=== PATIENT | female | born 1965 | race Caucasian/White ===

== ENCOUNTER → 2016-04-16 | Outpatient (CLI) | payer MEDICAID ==
[~2016-04-16] MED LIST: AMIODARONE 200200 MG PO; AMLO5TAB PO; ASPIRIN 81MG TA81 MG PO; BACLOFEN 10MG T10 MG PO; ETODOLAC400 MG PO; FERROUS SULFAT324 MG PO; FLEXERIL10 MG PO; GABAPENTIN100 M1 PO; HCTZ/LISINOPRIL1 TA3 PO; HYDROCHLOROTHIA1 TA2 PO; LISINOPRIL 20MG20 MG PO; LISINOPRIL/HCTZ PO; NAPROSYN 500MG500 MG OR; NICOTINE PATCH;21 MG TD; NITROLINGUAL SL; PERCOCET 325 MG1 TA3 PO; PRAVASTATIN 40M40 MG PO; PREDNISONE 10MG10 MG PO; TENORMIN50 MG PO; ZOFRAN ODT8 M1 PO
[2016-04-16 12:03] LABS: LYMPH # 1.8 K/mm3 (0.7-4.5); LYMPH % 23.6 % (10-50.0)
[2016-04-16 12:04] LABS: HEMOGLOBIN 11.8 g/dL (12.2-16.2)
[2016-04-16 15:31] LABS: BUN 33 mg/dL (7-18)
[2016-04-16 15:46] LABS: GFR (ESTIMATED) 34 ML/MIN (59-)
== END ==
LOC: LAB 11:45
PROVIDERS: Nurse Practitioner Family
DX: I10 Essential (primary) hypertension (principal); E55.9 Vitamin D deficiency, unspecified

== ENCOUNTER → 2016-06-01 | Outpatient (CLI) | payer MEDICAID ==
--- NOTE | 2016-06-04 08:59 | RADIOLOGY REPORT PS360 ---
DIG MAMM-SCREEN RIGOBERTO W/CAD CAD Screening COMPARISON: Digital mammograms 05/16/2015 and 02/19/2013 INDICATION: There is a history of breast cancer patient's sister diagnosed before menopause. TECHNIQUE: Standard CC and MLO images were obtained. R2 CAD reviewed. FINDINGS: The breasts are closed almost entirely of fat with scattered fibroglandular densities throughout each breast. A few scattered benign-appearing calcifications are seen in each breast. There is no suspicious lesion and no suspicious microcalcifications. IMPRESSION: Fatty type breast parenchyma with no suspicious lesion seen recommend yearly follow-up BI-RADS CATEGORY: 2_Benign RECOMMENDED FOLLOWUP: 12M 12 MONTH FOLLOW-UP (A letter has been sent to the patient regarding results of the study.)
== END ==
LOC: RAD 08:30
DX: Z12.31 Encounter for screening mammogram for malignant neoplasm of breast (principal)
CPT/HCPCS: G0202

== ENCOUNTER → 2016-07-06 | Outpatient (CLI) | payer MEDICAID ==
[2016-07-06 12:42] LABS: HEMOGLOBIN 11.8 g/dL (12.2-16.2); LYMPH # 1.5 K/mm3 (0.7-4.5); LYMPH % 25.2 % (10-50.0)
[2016-07-06 15:15] LABS: BUN 35 mg/dL (7-18)
[2016-07-06 15:20] LABS: GFR (ESTIMATED) 40 ML/MIN (59-)
[2016-07-07 10:39] LABS: Vitamin B12 >2000 pg/mL (211-946)
[2016-07-10 03:41] LABS: 1,25-Dihydroxy, Vitamin D-2 <10 pg/mL (.); 1,25-Dihydroxy, Vitamin D-3 25 pg/mL (.); Total 1,25-Dihydroxy,Vitamin D 25 pg/mL (.)
== END ==
LOC: LAB 11:59
PROVIDERS: Nurse Practitioner Family
DX: R00.0 Tachycardia, unspecified (principal); I10 Essential (primary) hypertension; E53.8 Deficiency of other specified B group vitamins; E55.9 Vitamin D deficiency, unspecified

== ENCOUNTER 2016-08-02 12:52 | Emergency (ER) | payer MEDICAID ==
[~2016-08-02] VITALS: Ht 162.6 cm; Wt 120.2 kg
--- OUTSIDE RECORDS SUMMARY | 2016-08-02 13:05 | External Medical Summary Rpt ---
Author Author , Organization [employer] Address Unknown Phone Unavailable Care Team Providers Care Bridge Worker Name Role Phone MREVAT ROWAN Unavailable Unavailable NNAMDI MERVAT COTO, MERVAT Unavailable Unavailable NNAMDI BEINEKE, BEINEKE Unavailable Unavailable BEINEKE STEPHANIE, BEINEKE Unavailable Unavailable STEPHANIE MATUTE ALL, MATUTE ALL Unavailable Unavailable [facility] Unavailable Unavailable SERVICE, Lit Building Directory AMBULANCE SERVICE [facility] Unavailable Unavailable SERVICE, Lit Building Directory AMBULANCE SERVICE [facility] Unavailable Unavailable [facility] [place]available [place], [facility] Unavailable Unavailable [facility], [facility], Unavailable Unavailable [facility], Unavailable Unavailable [facility] CHERYL JUAN, CHERYL Unavailable Unavailable JUAN YOUNGBLOOD, YOUNGBLOOD Unavailable Unavailable FRYMAN, FRYMAN Unavailable Unavailable FRYMAN EUG, FRYMAN Unavailable Unavailable EUG DORETHA JUAN, DORETHA Unavailable Unavailable JUAN [facility] Unavailable Unavailable INC, [facility] Unavailable Unavailable H[facility]PITAL, [facility] Unavailable Unavailable [facility]PITAL P, [facility], [facility]available Unavailable [facility], Unavailable Unavailable [facility] OBANDO TRA, OBANDO TRA Unavailable Unavailable [facility], [facility] SOLANO DONTA, SOLANO DONTA Unavailable Unavailable SUNNY JR DWI, SUNNY Unavailable Unavailable JR DWI [facility] Un[facility]available [facility], [facility] PETTEY, PETTEY Unavailable Unavailable RENUSCH CARRIE, RENUSCH Unavailable Unavailable CARRIE SCIFRES ANG, SCIFRES Unavailable Unavailable ANG IRWIN MAT, Unavailable Unavailable IRWIN MAT SOTINGEANShahnaz STEPHANIE, Unavailable Unavailable SOTINGEANamU STEPHANIE Issa MD, Unavailable Unavailable Kee Issa MD [facility] # Unavailable Unavailable [id number], [facility] # [id number] WALKER FOR, WALKER Unavailable Unavailable FOR Purpose Continuity of Care Document - 10-29-2010 through 2016 Problems Code Diagnosis DOS Provider Status K529 NONINFECTIV 06-13-2016 [facility] ITIS & COLITIS UNS E538 DEFICIENCY 06-02-2016 [facility] SPECIFIED B GROUP GROUP VITAMINS M7541 IMPINGEMENT 06-01-2016 [facility] SYNDROME PHYS[facility]IANS OF RIGHT GROUP SHOULDER M7542 IMPINGEMENT 06-01-2016 [facility] SYNDROME PHYS[facility]ANS OF LEFT GROUP SHOULDER Z1231 ENCOUNTER 06-01-2016 [facility]CREEN[facility] MAMMO MALIG [facility]AG[facility] NEOPLASM BREAST I10 ESSENTIAL 05-19-2016 [facility] PRIMARY [facility] HYPERTENSIO GROUP N M130 POLYARTHRIT 05-19-2016 [facility] IS PHYSICIANS UNSPECIFIED GROUP M542 CERVICALGIA 05-19-2016 [facility] R000 TACHYCARDIA 05-19-2016 [facility] UNSPECIFIED GROUP B349 VIRAL 05-07-2016 [facility] INFECTION [facility] UNSPEC[facility]IED INC [id number] PAIN IN 05-06-2016 [facility] G8929 OTHER 05-05-2016 [facility] CHRONIC [facility] PAIN GROUP R7989 OTHER SPEC 05-05-2016 [facility] ABNORMAL [facility] FINDINGS GROUP BLOOD CHEMISTRY E559 VITAMIN D 04-16-2016 [facility] DEFICIENCY [facility] UNSPECIFIED INC [id number] PAIN IN 04-16-2016 [facility] LEFT [facility]YSICI[facility] SHOULDER GROUP J0100 ACUTE 03-22-2016 [facility] MAXILLARY PHYS[facility] SINUSITIS GROUP UNSPECIFIED D85514 MUSCLE 11-28-2015 [facility] SPASM OF PHYSICIAN BACK GROUP L0390 CELLULITIS 10-20-2015 [facility] UNSPECIFIED PHYSICIAN GROUP [id number] PAIN IN 09-18-2015 [facility] [id number] CONTUSION 09-18-2015 [facility] LEFT PHYSICIANS, HAND PLLC INITIAL ENCOUNTER K7719RY UNSPECIFIED 09-18-2015 [facility] INJURY LT MEDICAL WRIST HAND IMAGING ASS FINGERS INITIAL D649 ANEMIA 08-25-2015 [facility] UNSPECIFIED PHYSICIANS GROUP I2510 ASHD [place] TRIBE 08-25-2015 [facility] CORONARY PHYS[facility]ANS ARTERY W/O GROUP ANGINA [place]ECT[place]IS R001 BRADYCARDIA 08-25-2015 [facility] UNSPECIFIED GROUP E785 HYPERLIPIDE 08-13-2015 [facility] B06133 ATHEROSCLER 08-13-2015 [facility] BP GRAFT [facility] TPLNT HRT W/O AP R002 PALPITATION 08-05-2015 [facility] S [facility] INC D509 IRON 07-30-2015 [facility] DEFICIENCY PHYSICIANS ANEMIA GROUP UNSPECIFIED I4891 UNSPECIFIED 07-30-2015 [facility] ATRIAL PHYSICIANS FIBRILLATIO GROUP N J55203 ASHD [place] TRIBE 07-29-2015 [facility] COR ART PHYSICIANS W/UNSTABLE GROUP ANGINA [place]ECT[place]IS I499 CARDIAC 07-29-2015 [facility] UNSPECIFIED SERVICE I517 CARDIOMEGAL 07-29-2015 [facility] R0602 SHORTNESS 07-29-2015 [facility] OF BREATH PHYSICIANS GROUP [id number] PERSONAL 07-29-2015 [facility] P DEPENDENCE Z951 PRESENCE OF 07-29-2015 [facility] [place] [facility] J0190 ACUTE 06-02-2015 [facility] SINUSITIS [facility] J029 ACUTE 06-02-2015 [facility] PHARYNGITIS [facility] UNSPECIFIED R42 DIZZINESS 05-01-2015 [facility] Z23 ENCOUNTER 05-01-2015 [facility] J069 ACUTE UPPER 04-28-2015 [facility] RESPIRATORY PLL[facility] INFECTION UNSPECIFIED R309 PAINFUL 03-12-2015 [facility] UNS[facility] I340 NONRHEUMATI 03-10-2015 [facility] INSUFFICIEN CY I361 NONRHEUMATI 03-10-2015 [facility] TRICUSPID [facility] INSUFFICIEN CY I371 NONRHEUMATI 03-10-2015 [facility]ULMONARY [facility] INSUFFICIEN CY E04884 PRIMARY 03-10-2015 [facility] OSTEOARTHRI MEDICAL TIS LEFT IMAGING ASS SHOULDER S86049 SPONDYLOSIS 03-10-2015 [facility] W/O MEDICAL MYELOPATH/R IMAGING ASS ADICULOPATH Y CERV RGN M5032 OTH CERV 03-10-2015 [facility] DISC MEDICAL DEGENERATIO IMAGING ASS N MID-CERVICA L REGION 56627 VARIANTS 12-02-2014 M[facility]AT COTO MIGRAINE NEC INTRACT MIGRAINE W/[place] [address] OSTEOARTHRO 12-02-2014 M[facility]AT COTO S INVLV MX SITES BUT NOT SPEC GEN 7242 LUMBAGO 10-17-2014 M[facility] COTO 2859 UNSPECIFIED 09-06-2014 [facility]EMIA [facility] INC 2449 UNSPECIFIED 09-04-2014 [facility] [place] 89183 DIAB W/O 09-04-2014 [facility] COMP TYPE PHYSICIANS II/UNS NOT LA STATED UNCNTRL 2689 UNSPECIFIED 09-04-2014 [facility] VITAMIN D PHYSICIANS DEFICIENCY [place] 2724 OTHER AND 09-04-2014 [facility] UNSPECIFIED PHYSICIANS [place] HYPERLIPIDE JOSEPH 99523 OBESITY, 09-03-2014 M[facility]AT NNAMDI UNSPECIFIED 7224 DEGENERATIO 08-09-2014 [facility] [place] [facility] CERV[facility] S [facility] INTERVERTEB RAL DISC 69933 OSTEOARTHRO 07-30-2014 [facility] S UNSPEC MEDICAL WHETHER IMAGING ASS GEN/LOC SHLDR REGION 84506 OSTEOARTHRO 07-30-2014 [facility] SIS UNSPEC MEDICAL WHETHER IMAGING ASS GEN/LOC LOWER LEG 67639 PAIN IN 07-30-2014 [facility] JOINT, MEDICAL SHOULDER IMAGING ASS REGION 94710 PAIN IN 07-30-2014 [facility] JOINT, MEDICAL LOWER LEG IMAGING ASS 7231 CERVICALGIA 07-30-2014 [facility] 98693 SPASM OF 06-14-2014 MERVAT COTO MUSCLE 4659 ACUTE URIS 05-17-2014 M[facility] COTO OF UNSPECIFIED SITE 5589 OTH&UNSPEC 05-17-2014 M[facility]AT COTO NONINFECTIO US GASTROENTER ITIS&COLITI S 75227 PAIN IN 02-05-2014 [facility] JOINT MEDICAL PELVIC IMAGING ASS REGION AND THIGH 00512 INSOMNIA 02-04-2014 MERVAT COTO UNSPECIFIED 40281 PAIN IN 11-02-2013 DEBRAJUNI NNAMDI JOINT, ANKLE AND FOOT 4011 ESSENTIAL 07-23-2013 MERVAT COTO HYPERTENSIO N, BENIGN 3674 PRESBYOPIA 11-20-2010 [facility] [id number] Coronary [facility] bypass [facility] grafts x 2 272.4 Hyperlipide [facility] 280.9 Microcytic [facility] I48.91 UNSPECIFIED ATRIAL FIBRILLATIO N S60.222A CONTUSION OF LEFT HAND, INITIAL ENCOUNTER Allergies, Adverse Reactions, Alerts Type Allergy to substance Adverse Reaction to Substance Substance Reaction Severity NO KNOWN ALLERGIES Unknown Unknown Clinical Alert Notifications Alert Diabetes: no A1C in the last 6 months Diabetes: no eye exam in the last 365 days Diabetes: no influenza vaccine in the last 365 days Diabetes: no urine protein screening in the last 365 days Medications Na ND Rx Da Fi Fi Am Da Di Ph RX Ph St me C No te ll ll ou ys ag ar # ys at rm s nt no ma ic us Or Da si cy ia de te s n re d GA 53 04 04 90 30 00 WA Ac BA 74 -0 -2 .0 00 L- ti PE 60 5- 8- 00 07 MA ve NT 10 20 20 48 RT IN 10 17 17 06 5 11 PH 10 AR 0 MA MG CY CA #5 PS 91 UL E TN 54 04 04 30 30 00 WA Ac AV 45 -0 -2 .0 00 L- ti 80 4- 8- 00 07 MA ve TA 92 20 20 47 RT TI 51 17 17 37 N 0 44 PH SO AR DI MA UM CY 40 #5 91 MG TA B AM 68 04 04 30 30 00 WA Ac IO 38 -0 -2 .0 00 L- ti DA 20 4- 8- 00 07 MA ve RO 22 20 20 47 RT NE 71 17 17 37 4 45 PH HC AR L MA 20 CY 0 MG #5 91 TA BL ET ## 10 04 10 5 00 WA Ac ## -1 -2 .0 00 L- ti ## 6- 8- 00 08 MA ve ## 20 20 83 RT ## 16 17 66 # 01 PH AR MA CY #5 91 ON 57 03 04 15 25 00 WA Ac DA 23 -2 -2 .0 00 L- ti NS 70 6- 1- 00 07 MA ve ET 07 20 20 47 RT RO 81 17 17 85 N 0 72 PH OD AR T MA 8 CY MG #5 TA 91 BL ET GA 53 03 03 90 30 00 WA Ac BA 74 -0 -2 .0 00 L- ti PE 60 1- 4- 00 07 MA ve NT 10 20 20 47 RT IN 10 17 17 37 5 36 PH 10 AR 0 MA MG CY CA #5 PS 91 UL E TN 54 03 03 30 30 00 WA Ac AV 45 -0 -2 .0 00 L- ti 80 1- 4- 00 07 MA ve TA 92 20 20 47 RT TI 51 17 17 37 N 0 44 PH SO AR DI MA UM CY 40 #5 91 MG TA B 00 03 03 90 90 00 WA Ac PI 53 -0 -2 .0 00 L- ti RI 61 1- 4- 00 08 MA ve N 00 20 20 83 RT EC 41 17 17 82 0 97 PH 81 AR MA MG CY TA #5 BL 91 ET AM 68 03 03 30 30 00 WA Ac IO 38 -0 -2 .0 00 L- ti DA 20 1- 4- 00 07 MA ve RO 22 20 20 47 RT NE 71 17 17 37 4 45 PH HC AR L MA 20 CY 0 MG #5 91 TA BL ET AT 00 03 03 90 90 00 WA Ac EN 78 -0 -2 .0 00 L- ti OL 11 1- 4- 00 07 MA ve OL 50 20 20 47 RT 61 17 17 37 50 0 46 PH AR MG MA CY TA BL #5 ET 91 AM 00 03 03 90 90 00 WA Ac LO 37 -0 -2 .0 00 L- ti DI 85 1- 4- 00 07 MA ve PI 20 20 20 47 RT NE 90 17 17 37 5 47 PH BE AR SY MA LA CY TE 5 #5 91 MG TA B TN 00 02 03 10 5 00 WA Ac ED 14 -1 -1 .0 00 L- ti NI 39 5- 0- 00 07 MA ve SO 73 20 20 47 RT NE 80 17 17 09 5 95 PH 20 AR MA MG CY TA #5 BL 91 ET LI 54 02 03 18 90 00 WA Ac SI 45 -0 -0 0. 00 L- ti NO 80 2- 3- 00 07 MA ve TN 99 20 20 0 46 RT IL 11 17 17 73 -H [address] AR Z MA 20 CY -2 5 #5 MG 91 TA B NI 45 02 03 4. 30 00 WA Ac TR 80 -0 -0 90 00 L- ti OG 20 2- 3- 0 07 MA ve LY 21 20 20 44 RT CE 00 17 17 15 RI 1 31 PH N AR LI MA NG CY UA L #5 0. 91 4 MG AM 00 01 02 30 30 00 WA Ac LO 37 -2 -2 .0 00 L- ti DI 85 7- 4- 00 07 MA ve PI 20 20 20 46 RT NE 90 17 17 73 5 18 PH BE AR SY MA LA CY TE 5 #5 91 MG TA B 00 01 02 30 30 00 WA Ac PI 53 -2 -2 .0 00 L- ti RI 61 7- 4- 00 08 MA ve N 00 20 20 83 RT EC 41 17 17 78 0 63 PH 81 AR MA MG CY TA #5 BL 91 ET GA 65 01 02 60 30 00 WA Ac BA 16 -2 -2 .0 00 L- ti PE 20 7- 4- 00 07 MA ve NT 10 20 20 46 RT IN 15 17 17 73 0 19 PH 10 AR 0 MA MG CY CA #5 PS 91 UL E AT 00 01 02 30 30 00 WA Ac EN 78 -2 -2 .0 00 L- ti OL 11 7- 4- 00 07 MA ve OL 50 20 20 46 RT 61 17 17 73 50 0 21 PH AR MG MA CY TA BL #5 ET 91 AM 68 01 30 30 00 WA Ac IO 38 -2 -2 .0 00 L- ti DA 20 7- 4- 00 07 MA ve RO 22 20 20 46 RT NE 71 17 17 73 4 22 PH HC AR L MA 20 CY 0 MG #5 91 TA BL ET TN 54 01 30 30 00 WA Ac AV 45 -2 -2 .0 00 L- ti 80 7- 4- 00 07 MA ve TA 92 20 20 46 RT TI 51 17 17 73 N 0 23 PH SO AR DI MA UM CY 40 #5 91 MG TA B LI 54 01 30 00 WA Ac SI 45 -1 -0 .0 00 L- ti NO 80 0- 3- 00 07 MA ve TN 99 20 20 40 RT IL 11 17 17 37 -H [address] AR Z MA 20 CY -2 5 #5 MG 91 TA B TN 54 12 04 19 30 00 WA Ac AV 45 -3 -2 .0 00 L- ti 80 1- 7- 00 07 MA ve TA 92 20 20 45 RT TI 51 16 17 57 N 0 36 PH SO AR DI MA UM CY 40 #5 91 MG TA B AM 00 03 21 29 30 00 WA Ac LO 37 -0 -2 .0 00 L- ti DI 85 2- 7- 00 07 MA ve PI 20 20 20 46 RT NE 90 17 17 21 5 07 PH BE AR SY MA LA CY TE 5 #5 91 MG TA B 00 03 21 29 30 00 WA Ac PI 53 -0 -2 .0 00 L- ti RI 61 2- 7- 00 08 MA ve N 00 20 20 83 RT EC 41 17 17 75 0 27 PH 81 AR MA MG CY TA #5 BL 91 ET GA 65 03 21 29 30 00 WA Ac BA 16 -0 -2 .0 00 L- ti PE 20 2- 7- 00 07 MA ve NT 10 20 20 46 RT IN 15 17 17 21 0 10 PH 10 AR 0 MA MG CY CA #5 PS 91 UL E AM 00 01 01 20 10 00 WA Ac OX 09 -0 -2 .0 00 L- ti IC 33 2- 7- 00 07 MA ve IL 10 20 20 46 RT LI 90 17 17 21 N 5 12 PH 50 AR 0 MA MG CY CA #5 PS 91 UL E FE 00 09 0 No RR 60 -1 OU 30 1- Lo S 17 20 ng SCHUSETR 92 13 er LF 9 AT Ac E ti 32 ve 5 MG TA BL ET SO 00 09 1 No DI 40 -1 UM 97 0- Lo 98 20 ng CH 30 13 er LO 2 RI Ac DE ti ve 0. 9% SO BHASKAR TI ON AT 62 09 1 No EN 58 -1 OL 40 0- Lo OL 46 20 ng 70 13 er 50 1 Ac MG ti ve TA BL ET Ba 51 09 1 No cl 07 -1 of 90 0- Lo en 66 20 ng 82 13 er 10 0 MG Ac ti Ta ve bl et AT 00 06 10 3 30 30 WA 71 CR Ac EN 37 -2 -2 .0 L- 24 AG ti OL 80 3- 2- 00 MA 39 ER ve OL 23 20 20 RT 8 10 11 11 JA 50 1 PH ME AR S MG MA K CY TA # BL ET 10 LI 68 06 10 3 30 30 WA 71 CR Ac SI 18 -2 -2 .0 L- 24 AG ti NO 00 3- 2- 00 MA 39 ER ve TN 52 20 20 RT 9 IL 00 11 11 JA -H [address] AR S Z MA K 20 CY -2 # 5 MG 10 05 TA 91 B TN 68 11 10 4 30 30 WA 71 CR Ac AV 46 -0 -1 .0 L- 26 AG ti 20 5- 1- 00 MA 16 ER ve TA 19 20 20 RT 8 TI 79 10 11 JA N 0 PH ME SO AR S DI MA K UM CY # 40 10 MG 05 91 TA B AT 00 06 09 3 30 30 WA 71 CR Ac EN 37 -2 -2 .0 L- 24 AG ti OL 80 3- 3- 00 MA 39 ER ve OL 23 20 20 RT 8 10 11 11 JA 50 1 PH ME AR S MG MA K CY TA # BL ET 10 LI 68 06 09 3 30 30 WA 71 CR Ac SI 18 -2 -2 .0 L- 24 AG ti NO 00 3- 3- 00 MA 39 ER ve TN 52 20 20 RT 9 IL 00 11 11 JA -H [address] AR S Z MA K 20 CY -2 # 5 MG 10 05 TA 91 B TN 54 11 09 4 30 30 WA 71 CR Ac AV 45 -0 -0 .0 L- 26 AG ti 80 5- 9- 00 MA 16 ER ve TA 92 20 20 RT 8 TI 51 10 11 JA N 0 PH ME SO AR S DI MA K UM CY # 40 10 MG 05 91 TA B AT 51 06 08 3 30 30 WA 71 CR Ac EN 07 -2 -2 .0 L- 24 AG ti OL 90 3- 2- 00 MA 39 ER ve OL 68 20 20 RT 8 46 11 11 JA 50 3 PH ME AR S MG MA K CY TA # BL ET 10 05 91 LI 54 06 08 3 30 30 WA 71 CR Ac SI 45 -2 -2 .0 L- 24 AG ti NO 80 3- 2- 00 MA 39 ER ve TN 99 20 20 RT 9 IL 11 11 11 JA -H [address] AR S Z MA K 20 CY -2 # 5 MG 10 05 TA 91 B TN 54 11 08 4 30 30 WA 71 CR Ac AV 45 -0 -1 .0 L- 26 AG ti 80 5- 1- 00 MA 16 ER ve TA 92 20 20 RT 8 TI 51 10 11 JA N 0 PH ME SO AR S DI MA K UM CY # 40 10 MG 05 91 TA B Immunization Name Date Route CVX Reacti Commen Provid Is Given on t er Refuse d IIV3 FRYMAN No VACCIN 2016 EUG E SPLIT VIRUS 0.5 ML DOSAGE IM USE PCV13 FRYMAN No VACCIN 2016 EUG E FOR INTRAM USCULA R USE Vital Signs 11-29-2012 16:05 Name Value Interpretat Reference Comment ion Range Body 98.3 [degF] Temperature BP 63 mm[Hg] Diastolic BP Systolic 112 mm[Hg] Heart 53 /min Rate/Pulse Respiratory 18 /min Rate 11-29-2012 12:00 Name Value Interpretat Reference Comment ion Range O2% 99 % 11-28-2012 18:28 Name Value Interpretat Reference Comment ion Range Height 162.56 cm Weight 118.389 kg Measured 11-28-2012 14:51 Name Value Interpretat Reference Comment ion Range Body 99.1 [degF] Temperature BP 68 mm[Hg] Diastolic BP Systolic 155 mm[Hg] Heart 67 /min Rate/Pulse O2% 100 % Respiratory 18 /min Rate Weight 0 [oz_av] Measured Results Labs Lab Lab Date Result Refere Interp Status Commen Order Detail nces retati t Range on Retics/100 RBC Fr Auto (11-29-2012 06:51) Retics/ 2.1 % 0.9-3.2 complet 100 RBC 013 ed Fr 06:51 Auto BASIC METABOLIC PANEL (11-29-2012 05:00) Glucose 99 74-106 complet 013 mg/dL ed Bld-mCn 05:00 c BUN 25 7-18 complet Bld-mCn 013 mg/dL ed c 05:00 Creat 1.4 0.6-1.0 complet SerPl-m 013 mg/dL ed Cnc 05:00 ESTIMAT 92 50-200 complet ED 013 ML/MIN ed CREATIN 05:00 INE CLEARAN CE GFR 40 59- complet (ESTIMA 013 ML/MIN ed FAM) 05:00 Sodium 140 136-145 complet SerPl-s 013 mmoL/L ed Cnc 05:00 Potassi 4.3 3.5-5.1 complet um 013 mmoL/L ed SerPl-s 05:00 Cnc Chlorid 107 98-107 complet e 013 mmoL/L ed SerPl-s 05:00 Cnc CO2 25 21.0-32 complet SerPl-s 013 mmoL/L .0 ed Cnc 05:00 Calcium 8.6 8.5-10. complet 013 mg/dL 1 ed SerPl-m 05:00 Cnc CBC with AUTO DIFF (11-29-2012 05:00) WBC # 10.5 4.8-10. complet Bld 013 K/MM3 8 ed Auto 05:00 RBC # 3.86 4.2-5.4 complet Bld 013 M/mm3 ed Auto 05:00 Hgb 9.5 12.2-16 complet Bld-mCn 013 g/dL .2 ed c 05:00 Hct Fr 30.9 % 37.0-47 complet Bld 013 .0 ed 05:00 MCV RBC 80.0 fl 82.2-97 complet 013 .8 ed 05:00 MCH RBC 24.7 pg 27-31.2 complet Qn 013 ed Auto 05:00 MEAN 30.9 31.8-35 complet CORPUSC 013 g/dl .4 ed ULAR 05:00 HGB CONC RDW RBC 17.9 % 11.5-17 complet Auto 013 .5 ed 05:00 Platele 298 142-424 complet t Bld 013 K/mm3 ed Ql 05:00 Manual MEAN 8.1 fl 7.4-10. complet PLATELE 013 4 ed T 05:00 VOLUME Granulo 11-29-2 74.4 % 37.0-80 complet cytes 013 .0 ed Fr Bld 05:00 Auto LYMPH % 11-29-2 17.1 % 10-50.0 complet 013 ed 05:00 Monocyt 11-29-2 7.2 % 1.7-9.3 complet es Fr 013 ed Bld 05:00 Auto Eosinop -11-2 1.0 % 0.1-12. complet hil Fr 013 0 ed Bld 05:00 Auto Basophi --2 0.3 % 0.1-2.0 complet ls Fr 013 ed Bld 05:00 Auto Granulo -11-2 7.8 1.8-7.8 complet cytes # 013 K/mm3 ed Bld 05:00 Auto Lymphoc 11-29-2 1.8 0.7-4.5 complet ytes Fr 013 K/mm3 ed Bld 05:00 Auto Monocyt -11-2 0.8 0.1-1.0 complet es # 013 K/mm3 ed Bld 05:00 Auto Eosinop -11-2 0.1 0.0-0.4 complet hil # 013 K/mm3 ed Bld 05:00 Auto Basophi -11-2 0.0 0-0.2 complet ls # 013 K/MM3 ed Bld 05:00 Auto OCCULT BLOOD (11-28-2012 15:50) Hemocul NEGATIV NEG complet t sp1 013 E ed Stl Ql 15:50 BASIC METABOLIC PANEL (11-28-2012 15:15) Glucose 104 74-106 complet 013 mg/dL ed Bld-mCn 15:15 c BUN 29 7-18 complet Bld-mCn 013 mg/dL ed c 15:15 Creat 1.6 0.6-1.0 complet SerPl-m 013 mg/dL ed Cnc 15:15 ESTIMAT 85 50-200 complet ED 013 ML/MIN ed CREATIN 15:15 INE CLEARAN CE GFR 34 59- complet (ESTIMA 013 ML/MIN ed FAM) 15:15 Sodium 139 136-145 complet SerPl-s 013 mmoL/L ed Cnc 15:15 Potassi 4.2 3.5-5.1 complet um 013 mmoL/L ed SerPl-s 15:15 Cnc Chlorid 105 98-107 complet e 013 mmoL/L ed SerPl-s 15:15 Cnc CO2 25 21.0-32 complet SerPl-s 013 mmoL/L .0 ed Cnc 15:15 Calcium 8.3 8.5-10. complet 013 mg/dL 1 ed SerPl-m 15:15 Cnc CK SerPl-cCnc (11-28-2012 15:15) CK 33 U/L 26-192 complet SerPl-c 013 ed Cnc 15:15 CK MB SerPl-mCnc (11-28-2012 15:15) CK MB Less 0.0-3.6 complet SerPl-m 013 than ed Cnc 15:15 0.5 ng/mL TROPONIN I (11-28-2012 15:15) TROPONI Less 0.00-0. complet N I 013 than 06 ed 15:15 0.02 ng/mL CBC with AUTO DIFF (11-28-2012 15:15) WBC # 10- 9.4 4.8-10. complet Bld 013 K/MM3 8 ed Auto 15:15 RBC # 11-28- 3.12 4.2-5.4 complet Bld 013 M/mm3 ed Auto 15:15 Hgb 6.9 12.2-16 Low complet Bld-mCn 013 g/dL .2 alert ed c 15:15 Hct Fr 23.8 % 37.0-47 Low complet Bld 013 .0 alert ed 15:15 MCV RBC 09-10-2 76.3 fl 82.2-97 complet 013 .8 ed 15:15 MCH RBC 09-10-2 22.0 pg 27-31.2 complet Qn 013 ed Auto 15:15 MEAN 09-10-2 28.8 31.8-35 complet CORPUSC 013 g/dl .4 ed ULAR 15:15 HGB CONC RDW RBC -10-2 16.7 % 11.5-17 complet Auto 013 .5 ed 15:15 Platele 09-10-2 363 142-424 complet t Bld 013 K/mm3 ed Ql 15:15 Manual MEAN -10-2 7.3 fl 7.4-10. complet PLATELE 013 4 ed T 15:15 VOLUME Granulo 09-10-2 63.5 % 37.0-80 complet cytes 013 .0 ed Fr Bld 15:15 Auto LYMPH % 09-10-2 26.6 % 10-50.0 complet 013 ed 15:15 Monocyt 09-10-2 6.9 % 1.7-9.3 complet es Fr 013 ed Bld 15:15 Auto Eosinop 09-10-2 2.5 % 0.1-12. complet hil Fr 013 0 ed Bld 15:15 Auto Basophi 09-10-2 0.5 % 0.1-2.0 complet ls Fr 013 ed Bld 15:15 Auto Granulo 09-10-2 6.0 1.8-7.8 complet cytes # 013 K/mm3 ed Bld 15:15 Auto Lymphoc 09-10-2 2.5 0.7-4.5 complet ytes Fr 013 K/mm3 ed Bld 15:15 Auto Monocyt 09-10-2 0.7 0.1-1.0 complet es # 013 K/mm3 ed Bld 15:15 Auto Eosinop 09-10-2 0.2 0.0-0.4 complet hil # 013 K/mm3 ed Bld 15:15 Auto Basophi 09-10-2 0.0 0-0.2 complet ls # 013 K/MM3 ed Bld 15:15 Auto Procedures Procedure DOS Code Location Performer Comment IAADIADOO 44245 [facility] INFLUENZA INC INC THERAPEUT 08163 [facility] IC 7 PHYSICIAN PHYSICIAN PROPHYLAC S GROUP S GROUP TIC/DX INJECTION SUBQ/IM SCREENING G0202 [facility] MELYSSAKE 7 MEDICAL MAMMOGRAP IMAGING HY RIGOBERTO ASS INCL CAD WHEN PERFORMD ARTHROCEN 10612 [facility] PHYSICIAN ASPIR&/IN S GROUP J MAJOR JT/BURSA W/O US SCREENING 39639 [facility] MAMMOGRAP INC INC HY BI 2-VIEW BREAST INC CAD IAADIADOO 73424 [facility] INFLUENZA INC INC RADEX 30073 [facility] TEJEDA SHOULDER 7 [facility] COMPLETE INC INC MINIMUM 2 VIEWS BLOOD 39366 [facility] TEJEDA COUNT 7 [facility] COMPLETE INC INC AUTO&AUTO DIFRNTL WBC CYANOCOBA 75121 [facility] TEJ[facility] JEOVANNY 7 [facility] VITAMIN INC INC B-12 LIPID 95138 [facility] TEJEDA PANEL 7 [facility] INC INC COMPREHEN 68432 [facility] SIVE 7 [facility] METABOLIC INC INC PANEL COLLECTIO 63992 [facility] TEJEDA N VENOUS 7 [facility] [place] [address] [facility] TEJEDA FREE 7 [facility] [place] [address] I[facility] TEJEDA THYROID 7 [facility] STIMULATI INC INC NG HORMONE TSH RADEX 74021 [facility] HAND 6 [facility] MINIMUM 3 INC INC VIEWS RADEX 46661 [facility] MATUTE ALL HAND 2 6 MEDICAL VIEWS IMAGING ASS ECG 41090 I[facility] TEJ[facility] ROUTINE 6 [facility] ECG INC INC W/LEAST 12 LDS TRCG ONLY W/O I&R ECG 83357 [facility] ROUTINE 6 PHYSICIAN MAT ECG S GROUP W/LEAST 12 LDS I&R ONLY BLOOD 11152 ILE[facility] TEJEDA OCCULT 6 [facility] PEROXIDAS INC INC E ACTV QUAL FECES 1-3 SPEC BLOOD 82989 ILE[facility] TEJEDA OCCULT 6 [facility] PEROXIDAS INC INC E ACTV QUAL FECES 1-3 SPEC BLOOD 28907 ILEANA TEJEDA OCCULT 6 [facility] HOSP PEROXIDAS INC INC E ACTV QUAL FECES 1-3 SPEC BLOOD 91318 ILEANA MONTOYA OCCULT 6 [facility] E ACTV QUAL FECES 1-3 SPEC ECG 32267 [facility] ROUTINE 6 PHYSICIAN MAT ECG S GROUP W/LEAST 12 LDS I&R ONLY ECG 98383 ILEANA TEJEDA ROUTINE 6 [facility] INC INC W/LEAST 12 LDS TRCG ONLY W/O I&R OBSERVATI 80845 [facility] ON CARE 6 PHYSICIAN JUAN DISCHARGE S GROUP MANAGEMEN T SBSQ 29095 [facility] 6 PHYSICIAN MAT CARE/DAY S GROUP 25 MINUTES CRITICAL 78920 [facility] 6 PHYSICIAN CARRIE ILL/INJUR S, PLLC ED PATIENT INIT 30-74 MIN AMB A0427 [facility] SERVICE 6 AMBULANCE AMBULANCE ALS SERVICE SERVICE EMERGENCY TRANSPORT LEVEL 1 GROUND A0425 [facility] MILEAGE 6 AMBULANCE AMBULANCE PER SERVICE SERVICE STATUTE MILE INITIAL 61118 [facility] 6 PHYSICIAN MAT CARE/DAY S GROUP 70 MINUTES ECG 20309 ILEANA CORREA JR ROUTINE 6 [facility] W/LEAST P 12 LDS I&R ONLY INITIAL 36953 [facility] OBSERVATI 6 PHYSICIAN JUAN ON S GROUP CARE/DAY 50 MINUTES RADIOLOGI 95368 [facility] C EXAM 6 MEDICAL STEPHANIE CHEST 2 IMAGING VIEWS ASS FRONTAL&L ATERAL SCREENING [id number] ILEANA TEJEDA 6 [facility] HOSP MAMMOGRAP INC INC HY RIGOBERTO INCL CAD WHEN PERFORMD COMPUTER- 19369 ILEANA TEJEDA AIDED 6 [facility] HOSP DETECTION INC INC SCREENING MAMMOGRAP HY IM ADM 01609 ILEANA MONTOYA PRQ ID 6 [facility] NJXS EA VACCINE IIV3 [id number] ILEANA MONTOYA VACCINE 6 [facility] VIRUS 0.5 ML DOSAGE IM USE IM ADM 06975 ILEANA MONTOYA PRQ ID 6 [facility] SUBQ/IM HOSPITAL NJXS 1 VACCINE PCV13 [id number] ILEANA MONTOYA VACCINE 6 [facility] INTRAMUSC ULAR USE URNLS DIP 91416 ILEANA MONTOYA 5 [facility] STICK/TAB HOSPITAL LET RGNT NON-AUTO W/O MICRSCP ECG 60848 [facility] ROUTINE 5 CULAR MAT ECG CONSULTAN W/LEAST TS O 12 LDS I&R ONLY ECG 85426 ILEANA TEJEDA ROUTINE 5 [facility] ECG INC INC W/LEAST 12 LDS TRCG ONLY W/O I&R CREATINE 87628 ILEANA TEJEDA KINASE 5 [facility] TOTAL INC INC CYANOCOBA 15183 ILEANA TEJEDA JEOVANNY 5 [facility] VITAMIN INC INC B-12 ECHO 43106 [place] [facility]TA TTHRC R-T 5 MEDICAL 2D SERV W/WOM-MOD FOUNDATIO E COMPL N SPEC&COLR D RADEX 80851 ILEANA TEJEDA SHOULDER 5 [facility] COMPLETE INC INC MINIMUM 2 VIEWS RADEX 31429 [facility] SP[facility] 5 [facility] CERVICAL [facility] INC 4 OR 5 VIEWS CREATINE 14807 ILEANA TEJEDA KINASE MB 5 [facility] [place] [address] [facility] FOLIC 5 [facility] ACID INC INC SERUM COMPREHEN 90352 [facility] SIVE 5 [facility] [address] [facility] THYROID 5 [facility] STIMULATI INC INC NG HORMONE TSH COLLECTIO 40964 ILEANA TEJEDA N VENOUS 5 [facility] [place] [address] [facility] TEJEDA FREE 5 [facility] THYROXINE INC INC LIPID 74440 I[facility] TEJEDA PANEL 5 [facility] INC INC 1 25 71174 ILEANA TEJEDA DIHYDROXY 5 [facility] INCLUDES [place] [address] I[facility] TEJEDA TROPONIN 5 [facility] QUANTITAT INC INC SHIVANI BLOOD 43970 [facility] COUNT 5 [facility] COMPLETE INC INC AUTO&AUTO DIFRNTL WBC DUPLEX 64000 ILEANA TEJEDA SCAN 5 [facility] EXTRACRAN INC INC IAL ART COMPL BI STUDY RHYTHM 70138 ILEANA MONTOYA ECG 1-3 5 [facility] W/INTERPR ETATION & REPORT RED BLOOD P9016 [facility] TEEJDA CELLS 5 [facility] LEUKOCYTE INC INC S REDUCED EACH UNIT TRANSFUSI 08558 ILAENA TEJEDA ON 5 [facility] BLOOD/BLO INC INC OD COMPONENT S BLOOD 87902 ILEANA TEJEDA COUNT 5 [facility] HEMOGLOBI INC INC N BLOOD 75116 ILEANA TEJEDA COUNT 5 [facility] HEMATOCRI INC INC T UNCLASSIF J3490 ILEANA TEJEDA IED DRUGS 5 [facility] INC INC BLOOD 21395 I[facility]ANA TEJEDA TYPING 5 [facility] SEROLOGIC INC INC RH (D) COMPATIBI 46525 ILEANA TEJEDA LITY EACH 5 [facility] UNIT INC INC IMMEDIATE SPIN TECHNIQUE COMPATIBI 79512 I[facility]ANA TEJEDA LITY EACH 5 [facility] ANTIGLOBU FILEMON ANTIBODY 39538 ILEANA TEJEDA SCREEN 5 [facility] RBC EACH INC INC SERUM TECHNIQUE BLOOD 12747 ILEANA TEJEDA TYPING 5 [facility] SEROLOGIC INC INC ABO BLOOD 39791 I[facility]ANA TEJEDA COUNT 5 [facility] HEMATOCRI INC INC T COLLECTIO 83496 ILEANA TEJEDA N VENOUS 5 [facility] BLOOD INC INC VENIPUNCT URE BLOOD 26319 ILEANA TEJEDA COUNT 5 [facility] HEMOGLOBI INC INC N HEMOGLOBI 52318 COMBINED COMBINED N 5 PHYSICIAN PHYSICIAN GLYCOSYLA S LA S LA FAM A1C IRON 83691 COMBINED COMBINED BINDING 5 PHYSICIAN PHYSICIAN CAPACITY S LA S LA LIPID 82808 COMBINED COMBINED PANEL 5 [place] [address] COMBINED COMBINED FREE 5 PHYSICIAN PHYSICIAN THYROXINE S [place] S LA 25 26279 COMBINED COMBINED HYDROXY 5 PHYSICIAN PHYSICIAN INCLUDES S LA S LA FRACTIONS IF PERFORMED GENERAL 12810 COMBINED COMBINED HEALTH 5 PHYSICIAN [place] [address] COMBINED COMBINED TRIIODOTH 5 PHYSICIAN PHYSICIAN YRONINE S LA S LA T3 TOTAL TT3 BLOOD 18705 COMBINED COMBINED COUNT 5 PHYSICIAN PHYSICIAN RETICULOC S LA S LA YTE AUTOMATED RADIOLOGI 35923 I[facility]ANA ILEANA C 5 [facility] EXAMINATI INC INC ON KNEE 3 VIEWS RADEX 34121 ILEANA TEJEDA SPINE 5 [facility] CERVICAL INC INC 4 OR 5 VIEWS RADEX 91161 ILEANA TEJEDA SHOULDER 5 [facility] COMPLETE INC INC MINIMUM 2 VIEWS INJ J0702 MERVAT RICHARDSONJUNI BETAMETHA 5 NNAMDI NNAMDI SONE ACETATE & PHOSPHATE 3 MG RADEX 74509 ILEANA TEJEDA HIPS 4 [facility] BILATERAL INC INC 2 VIEWS ANTEROPOS T PELVIS RADEX HIP 98699 [facility] [place] IMAGING L ASS COMPLETE MINIMUM 2 VIEWS OPHTH 87463 [facility] 1 VISION ANG XM&EVAL COMPRE NEW PT 1/> VST PACKED 99.04 Kee Issa MD TRANSFUSI ON Encounters Encounter Start End Date Code Location Performer Type Date [facility]LEANA - 7 7 [facility] OUTPATIEN INC T OFFICE 59775 I[facility] OUTPATIEN 7 7 [facility] T VISIT 5 INC MINUTES OFFICE 54431 [facility] 7 7 PHYSICIAN T NEW 20 S GROUP MINUTES [facility]ANA - 7 7 [facility] OUTPAT[facility] T OFFICE 82012 [facility] 7 7 PHYSICIAN T VISIT S GROUP 25 MINUTES OFFICE 27406 I[facility] OUTPATIEN 7 7 [facility] VISIT 5 INC MINUTES [facility]OSPITAL ILEANA - 7 7 [facility] T [facility] - 7 7 [facility] T OFFICE 63263 [facility] 7 7 PHYSICIAN T VISIT S GROUP 25 MINUTES HOSPITAL ILEANA - 7 7 [facility] OUTPATIEN INC T OFFICE 63182 [facility] 7 7 PHYSICIAN T VISIT S GROUP 25 MINUTES OFFICE 80763 [facility] 7 7 PHYSICIAN T VISIT S GROUP 15 MINUTES OFFICE 09796 [facility] OUT[facility] 6 6 PHYSICIAN T VISIT 5 S GROUP MINUTES OFFICE 50326 [facility] 6 PHYSICIAN T VISIT GROUP 25 MINUTES OFFICE 30600 [facility] 6 6 PHYSICIAN T VISIT GROUP 25 MINUTES EMERGENCY 30389 CHRIS PETER 6 6 [facility] T VISIT MODERATE SEVERITY EMERGENCY 48761 ILEANA 6 6 [facility] DEPARTMEN INC T VISIT LIMITED/M INOR [facility] ILEANA - 6 6 [facility] OUTPATIEN [facility] ILEANA - 6 6 [facility] OUTPATIEN INC T OFFICE 00600 [facility] OUT[facility] 6 6 PHYSICIAN MAT T VISIT S GROUP 25 MINUTES HOSPITAL ILEANA - 6 6 [facility] OUTPATIEN INC [facility] ILEANA - 6 6 [facility]PAT[facility]EN [facility] ILEANA - 6 6 [facility] OUTPATIEN INC T OFFICE 20379 ILEANA [facility]YMAN OUTPATIEN 6 6 [facility] T VIS[facility] HOSPITAL 15 MINUTES OFFICE 38529 [facility] 6 6 PHYSICIAN MAT T VISIT S GROUP 40 MINUTES HOSPITAL ILEANA - 6 6 [facility] OUTPATIEN INC T [facility]OSPITAL ILEANA [facility] 6 6 [facility] INPATIENT INC OFFICE 65059 ILEANA CHERYL OUTPATIEN 6 6 [facility] T VIS[facility]PITAL 25 MINUTES HOSPITAL ILEANA - 6 6 [facility] OUTPATIEN INC T OFFICE 84991 ILEANA MONTOYA OUTPATIEN 6 6 [facility] T VISIT HOSPITAL 15 MINUTES HOSPITAL ILEANA - 6 6 [facility] OUTPATIEN INC T EMERGENCY 76980 CHRIS ARCE 6 6 PHYSICIAN [facility], [facility] T VISIT MODERATE SEVERITY EMERGENCY 49816 ILEANA 6 6 [facility] T VISIT LOW/MODER SEVERITY OFFICE 34024 ILEANA MONTOYA OUTPATIEN 5 5 [facility] T VISIT HOSPITAL 10 MINUTES OFFICE 87049 [facility] OUTPATIEN 5 5 CULAR MAT T [facility] 60 CONSULTAN MINUTES [facility] ILEANA - 5 5 [facility] OUTPATIEN [facility] ILEANA - 5 5 [facility] OUTPATIEN INC T OFFICE 59315 ILEANA MONTOYA OUTPATIEN 5 5 [facility] NEW 30 HOSPITAL MINUTES OFFICE 06421 MERVAT PAULPATIEN 5 5 NNAMDI NNAMDI T VISIT 15 MINUTES OFFICE 99727 MERVAT CRUZ 5 5 NNAMDI NNAMDI T VISIT 15 MINUTES HOSPITAL ILEANA - 5 5 [facility] OUTPATIEN INC T [facility] ILEANA - 5 5 [facility] OUTPATIEN INC T OFFICE 50525 [facility] OUTPATIEN 5 5 NNAMDI NNAMDI T VISIT 15 MINUTES OFFICE 77594 [facility] 5 5 [place] NEW 30 ORTHOPAED MINUTES ICS [facility] ILEANA - 5 5 [facility] OUTPATIEN INC T OFFICE 88945 MERVAT MERVAT CAVAZOSEN 5 5 NNAMDI NNAMDI T VISIT 15 MINUTES OFFICE 64482 DEBRAJUNI MERVAT CAVAZOSEN 5 5 NNAMDI NNAMDI T VISIT 15 MINUTES OFFICE 95030 DEBRAJUNI MERVAT PAULPATIEN 5 5 NNAMDI NNAMDI T VISIT 15 MINUTES OFFICE 26019 DEBRAJUNI MERVAT PAULPATIEN 5 5 NNAMDI NNAMDI T VISIT 15 MINUTES HOSPITAL ILEANA - 4 4 [facility] OUTPATIEN INC T OFFICE 57080 MERVAT CAVAZOSEN 4 4 NNAMDI NNAMDI T VISIT 15 MINUTES OFFICE 48506 MERVAT CRUZ 4 4 NNAMDI NNAMDI T VISIT 15 MINUTES OFFICE 21868 MERVAT CROWELL OUTPATIEN 4 4 NNAMDI NNAMDI T NEW 30 MINUTES Inpatient MATTHEW Issa MD (IN) 3 16:14 3 16:10 [facility]
--- OUTSIDE RECORDS SUMMARY | 2016-08-02 13:05 | External Medical Summary Rpt ---
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 Name Role Phone MERVAT ROWAN Unavailable Unavailable NNAMDI MERVAT COTO, MERVAT Unavailable Unavailable NNAMDI BEINEKE, BEINEKE Unavailable Unavailable BEINEKE STEPHANIE, BEINEKE Unavailable Unavailable STEPHANIE MATUTE ALL, MATUTE ALL Unavailable Unavailable [facility] Unavailable Unavailable SERVICE, [facility] Unavailable Unavailable SERVICE[facility] Unavailable Unavailable [facility] Un[facility] Unavailable [place], [facility] Unavailable Unavailable [facility], [facility], Unavailable Unavailable [facility], Unavailable Unavailable [facility] CHERYL JUAN, CHERYL Unavailable Unavailable JUAN YOUNGBLOOD, YOUNGBLOOD Unavailable Unavailable FRYMAN, FRYMAN Unavailable Unavailable FRYMAN EUG, FRYMAN Unavailable Unavailable EUG DORETHA JUAN, DORETHA Unavailable Unavailable JUAN [facility] Un[facility] Unavailable [facility], [facility] Un[facility] Un[facility], [facility], Unavailable [facility]available [facility], Unavailable Unavailable [facility] OBANDO TRA, OBANDO TRA Unavailable Unavailable [facility] Unavailable [...] Issa MD [facility] # Unavailable Unavailable [id number], [facility] # [id number] WALKER FOR, WALKER Unavailable Unavailable FOR Purpose Continuity of Care Document - 10-29-2010 through 2016 Problems Code Diagnosis DOS Provider Status K529 NONINFECTIV 06-13-2016 [facility] ITIS & COLITIS UNS E538 DEFICIENCY 06-02-2016 [facility] OF OTHER PHYSICIANS SPECIFIED B GROUP GROUP VITAMINS M7541 IMPINGEMENT 06-01-2016 [facility] SYNDROME PHYSICIANS OF RIGHT GROUP SHOULDER M7542 IMPINGEMENT 06-01-2016 [facility] SYNDROME PHYSICIANS OF LEFT GROUP SHOULDER Z1231 ENCOUNTER 06-01-2016 [facility] SCREENING [facility] M[facility] MALIG [facility]AG[facility] NEOPLASM BREAST I10 ESSENTIAL 05-19-2016 [facility] PRIMARY PHYSICIANS HYPERTENSIO GROUP N M130 POLYARTHRIT 05-19-2016 [facility] IS PHYSICIANS UNSPECIFIED GROUP M542 CERVICALGIA 05-19-2016 [facility] PHYSICIANS GROUP R000 TACHYCARDIA 05-19-2016 [facility] PHYSICIANS UNSPECIFIED GROUP B349 VIRAL 05-07-2016 [facility] INFECTION [facility] UNSPECIFIED INC [id number] PAIN IN 05-06-2016 [place] [facility] SHOULDER INC G8929 OTHER 05-05-2016 [facility] CHRONIC PHYSICIANS PAIN GROUP R7989 OTHER SPEC 05-05-2016 [facility] ABNORMAL PHYSICIANS FINDINGS GROUP BLOOD CHEMISTRY E559 VITAMIN D 04-16-2016 [facility] DEFICIENCY [facility] UNSPECIFIED INC P71602 PAIN IN 04-16-2016 [facility] LEFT PHYSICIANS SHOULDER GROUP J0100 ACUTE 03-22-2016 [facility] MAXILLARY PHYSICIANS SINUSITIS GROUP UNSPECIFIED E18517 MUSCLE 11-28-2015 [facility] SPASM OF PHYSICIAN BACK GROUP L0390 CELLULITIS 10-20-2015 [facility] UNSPECIFIED PHYSICIAN GROUP K70998 PAIN IN 09-18-2015 [facility] [id number] CONTUSION 09-18-2015 [facility] OF LEFT PHYSICIANS, HAND PLLC INITIAL ENCOUNTER H7521YI UNSPECIFIED 09-18-2015 [place] INJURY LT MEDICAL WRIST HAND IMAGING ASS FINGERS INITIAL D649 ANEMIA 08-25-2015 [facility] UNSPECIFIED PHYSICIANS GROUP I2510 [place]SHD [place] 08-25-2015 [facility] CORONARY PHYSICIANS ARTERY W/O GROUP ANGINA PECTORIS R001 BRADYCARDIA 08-25-2015 [facility] PHYSICIANS UNSPECIFIED GROUP E785 HYPERLIPIDE 08-13-2015 [facility] G76921 ATHEROSCLER 08-13-2015 [facility] BP GRAFT [facility] TPLNT HRT W/O AP R002 PALPITATION 08-05-2015 [facility] S [facility] INC D509 IRON 07-30-2015 [facility] DEFICIENCY PHYSICIANS ANEMIA GROUP UNSPECIFIED I4891 UNSPECIFIED 07-30-2015 [facility] ATRIAL PHYSICIANS FIBRILLATIO GROUP N R82364 ASHD [place] 07-29-2015 [facility] COR ART PHYSICIANS W/UNSTABLE GROUP ANGINA PECTORIS I499 CARDIAC 07-29-2015 [facility] UNSPECIFIED SERVICE I517 CARDIOMEGAL 07-29-2015 [facility] R0602 SHORTNESS 07-29-2015 [facility] OF BREATH PHYSICIANS GROUP T21033 PERSONAL 07-29-[address] [place] [address] [facility] P DEPENDENCE Z951 PRESENCE OF 07-29-2015 [facility] [place] G[facility]FT J0190 ACUTE 06-02-2015 [place] SINUSITIS [facility] J029 ACUTE 06-02-2015 [place] PHARYNGITIS [facility] UNSPECIFIED R42 DIZZINESS 05-01-2015 [place] AND [facility] Z23 ENCOUNTER 05-01-2015 [facility] J069 ACUTE UPPER 04-28-2015 [facility], RESPIRATORY PLLC INFECTION UNSPECIFIED R309 PAINFUL 03-12-[address] [address] [facility] UNSPEC[facility] I340 NONRHEUMATI 03-10-2015 [place] [facility] INSUFFICIEN CY I361 NONRHEUMATI 03-10-2015 [place] [facility] TRICUSPID SERV [facility] INSUFFICIEN CY I371 NONRHEUMATI 03-10-2015 [facility] PULMONARY SERV [facility] INSUFFICIEN CY I95230 PRIMARY 03-10-2015 [place] OSTEOARTHRI MEDICAL TIS LEFT IMAGING ASS SHOULDER S51272 SPONDYLOSIS 03-10-2015 [place] W/O MEDICAL MYELOPATH/R IMAGING ASS ADICULOPATH Y CERV RGN M5032 OTH CERV 03-10-2015 [place] DISC MEDICAL DEGENERATIO IMAGING ASS N MID-CERVICA L REGION 95040 VARIANTS 12-02-2014 MERVAT COTO MIGRAINE NEC INTRACT MIGRAINE W/[place] SM [address] OSTEOARTHRO 12-02-2014 [facility] COTO S INVLV MX SITES BUT NOT SPEC GEN 7242 LUMBAGO 10-17-2014 [facility] COTO 2859 UNSPECIFIED 09-06-2014 [facility]IA [facility] INC 2449 UNSPECIFIED 09-04-2014 [facility] HYPOTHYROID [place]M 12840 DIAB W/O 09-04-2014 [facility] COMP TYPE PHYSICIANS II/UNS NOT LA STATED UNCNTRL 2689 UNSPECIFIED 09-04-2014 [facility] VITAMIN D PHYSICIANS DEFICIENCY [place] 2724 OTHER AND 09-04-2014 [facility] UNSPECIFIED PHYSICIANS [place] HYPERLIPIDE JOSEPH 35272 OBESITY, 09-03-2014 M[facility]AT NNAMDI UNSPECIFIED 7224 DEGENERATIO 08-09-2014 [facility] [place] [facility] INTERVERTEB RAL DISC 55730 OSTEOARTHRO 07-30-2014 [place] S UNSPEC MEDICAL WHETHER IMAGING ASS GEN/LOC SHLDR REGION 78533 OSTEOARTHRO 07-30-2014 [place] SIS UNSPEC MEDICAL WHETHER IMAGING ASS GEN/LOC LOWER LEG 07292 PAIN IN 07-30-2014 [facility], MEDICAL SHOULDER IMAGING ASS REGION 26814 PAIN IN 07-30-2014 [place] [facility], MEDICAL LOWER LEG IMAGING ASS 7231 CERVICALGIA 07-30-2014 [facility] 77105 SPASM OF 06-14-2014 M[facility]AT COTO MUSCLE 4659 ACUTE URIS 05-17-2014 [facility] COTO OF UNSPECIFIED SITE 5589 OTH&UNSPEC 05-17-2014 [facility] COTO NONINFECTIO US GASTROENTER ITIS&COLITI S 15369 PAIN IN 02-05-2014 [facility] MEDICAL PELVIC IMAGING ASS REGION AND THIGH 70038 INSOMNIA 02-04-2014 M[facility]AT COTO UNSPECIFIED 04932 PAIN IN 11-02-2013 DEBRAJUNI NNAMDI JOINT, ANKLE AND FOOT 4011 ESSENTIAL 07-23-2013 M[facility]AT COTO HYPERTENSIO N, BENIGN 3674 PRESBYOPIA 11-20-2010 [facility] [id number] Coronary [facility] bypass [facility] grafts x 2 272.4 Hyperlipide [facility] 280.9 Microcytic [facility] I48.91 UNSPECIFIED ATRIAL FIBRILLATIO N S60.222A [...] CY CA #5 PS 91 UL E PA 54 04 04 30 30 00 WA [...] CY CA #5 PS 91 UL E PA 54 03 03 30 30 00 WA [...] TE 5 #5 91 MG TA B PA 00 02 03 10 5 00 WA [...] 80 2- 3- 00 07 MA ve PA 99 20 20 0 46 RT IL [...] 0 MG #5 91 TA BL ET PA 54 01 30 30 00 WA Ac [...] 80 0- 3- 00 07 MA ve PA 99 20 20 40 RT IL 11 17 17 37 -H [address] AR Z MA 20 CY -2 5 #5 MG 91 TA B PA 54 12 04 19 30 00 WA [...] 30 1- Lo S 17 20 ng SCHUSTER 92 13 er LF 9 AT Ac [...] 3- 2- 00 MA 39 ER ve PA 52 20 20 RT 9 IL 00 11 11 JA -H [address] AR S Z MA K 20 CY -2 # 5 MG 10 05 TA 91 B PA 68 11 10 4 30 30 WA [...] 3- 3- 00 MA 39 ER ve PA 52 20 20 RT 9 IL 00 11 11 JA -H [address] AR S Z MA K 20 CY -2 # 5 MG 10 05 TA 91 B PA 54 11 09 4 30 30 WA [...] 3- 2- 00 MA 39 ER ve PA 99 20 20 RT 9 IL 11 11 11 JA -H [address] AR S Z MA K 20 CY -2 # 5 MG 10 05 TA 91 B PA 54 11 08 4 30 30 WA [...] Procedure DOS Code Location Performer Comment IAADIADOO 85219 [facility] TEJEDA [facility] INFLUENZA INC INC THERAPEUT 64985 [facility] IC 7 PHYSICIAN PHYSICIAN PROPHYLAC S GROUP S GROUP TIC/DX INJECTION SUBQ/IM SCREENING G0202 [place] MELYSSAKE 7 MEDICAL MAMMOGRAP IMAGING HY RIGOBERTO ASS INCL CAD WHEN PERFORMD ARTHROCEN 04227 [facility] FABIYISSELPushpa FISHERIS 7 PHYSICIAN ASPIR&/IN S GROUP J MAJOR JT/BURSA W/O US SCREENING 93782 [facility] TE[facility] MAMMOGRAP INC INC HY BI 2-VIEW BREAST INC CAD IAADIADOO 82437 [facility] TE[facility] 7 [facility] INFLUENZA INC INC RADEX 96098 [facility] TEJEDA SHOULDER 7 [facility] COMPLETE INC INC MINIMUM 2 VIEWS BLOOD 07159 [facility] TEJEDA COUNT 7 [facility] COMPLETE INC INC AUTO&AUTO DIFRNTL WBC CYANOCOBA 84567 [facility] TE[facility] JEOVANNY 7 [facility] VITAMIN INC INC B-12 LIPID 55231 [facility] TE[facility] PANEL 7 [facility] INC INC COMPREHEN 12676 [facility] TE[facility] SIVE 7 [facility] METABOLIC INC INC PANEL COLLECTIO 63941 [facility] TEJEDA N VENOUS 7 [facility] [place] [address] I[facility] TEJEDA FREE 7 [facility] [place] [address] I[facility] TEJEDA THYROID 7 [facility] STIMULATI INC INC NG HORMONE TSH RADEX 48591 [facility] TE[facility] HAND 6 [facility] MINIMUM 3 INC INC VIEWS RADEX 25677 [place] MATUTE ALL HAND 2 6 MEDICAL VIEWS IMAGING ASS ECG 91229 [facility] TEJEDA ROUTINE 6 [facility] ECG INC INC W/LEAST 12 LDS TRCG ONLY W/O I&R ECG 54279 [facility] IRWIN ROUTINE 6 PHYSICIAN MAT ECG S GROUP W/LEAST 12 LDS I&R ONLY BLOOD 63341 [facility] TEJEDA OCCULT 6 [facility] PEROXIDAS INC INC E ACTV QUAL FECES 1-3 SPEC BLOOD 92578 [facility] TE[facility] OCCULT 6 [facility] PEROXIDAS INC INC E ACTV QUAL FECES 1-3 SPEC BLOOD 25065 [facility] TEJEDA OCCULT 6 [facility] PEROXIDAS INC INC E ACTV QUAL FECES 1-3 SPEC BLOOD 08990 [facility] MONTOYA OCCULT 6 [facility] E ACTV QUAL FECES 1-3 SPEC ECG 52367 [facility] ROUTINE 6 PHYSICIAN MAT ECG S GROUP W/LEAST 12 LDS I&R ONLY ECG 13984 [facility] TEJEDA ROUTINE 6 [facility] ECG INC INC W/LEAST 12 LDS TRCG ONLY W/O I&R OBSERVATI 10568 [facility] ON CARE 6 PHYSICIAN JUAN DISCHARGE S GROUP MANAGEMEN T SBSQ 20607 [facility] 6 PHYSICIAN MAT CARE/DAY S GROUP 25 MINUTES CRITICAL 52320 [facility] 6 PHYSICIAN CARRIE ILL/INJUR S, PLLC ED PATIENT INIT 30-74 MIN AMB A0427 [facility] SERVICE 6 AMBULANCE AMBULANCE ALS SERVICE SERVICE EMERGENCY TRANSPORT LEVEL 1 GROUND A0425 [facility] MILEAGE 6 AMBULANCE AMBULANCE PER SERVICE SERVICE STATUTE MILE INITIAL 79776 [facility] 6 PHYSICIAN MAT CARE/DAY S GROUP 70 MINUTES ECG 13737 I[facility] CORREA JR ROUTINE 6 [facility] W/LEAST P 12 LDS I&R ONLY INITIAL 86448 [facility] OBSERVATI 6 PHYSICIAN JUAN ON S GROUP CARE/DAY 50 MINUTES RADIOLOGI 79494 [facility] EXAM 6 MEDICAL STEPHANIE CHEST 2 IMAGING VIEWS ASS FRONTAL&L ATERAL SCREENING G0202 [facility] TEJEDA 6 [facility] MAMMOGRAP INC INC HY RIGOBERTO INCL CAD WHEN PERFORMD COMPUTER- 83064 I[facility] TEJEDA AIDED 6 [facility] DETECTION INC INC SCREENING MAMMOGRAP HY IM ADM 07128 I[facility] MONTOYA PRQ ID 6 [facility] NJXS EA VACCINE IIV3 10810 [facility] MONTOYA VACCINE 6 [facility] VIRUS 0.5 ML DOSAGE IM USE IM ADM 70268 I[facility] MONTOYA PRQ ID 6 [facility] SUBQ/IM HOSPITAL NJXS 1 VACCINE PCV13 19765 [facility] MONTOYA VACCINE 6 [facility] INTRAMUSC ULAR USE URNLS DIP 85272 I[facility] MONTOYA 5 [facility] STICK/TAB HOSPITAL LET RGNT NON-AUTO W/O MICRSCP ECG 47350 [facility] ROUTINE 5 CULAR MAT ECG CONSULTAN W/LEAST TS O 12 LDS I&R ONLY ECG 20185 [facility] TEJEDA ROUTINE 5 [facility] ECG INC INC W/LEAST 12 LDS TRCG ONLY W/O I&R CREATINE 73597 [facility] KINASE 5 [facility] TOTAL INC INC CYANOCOBA 15273 [facility] TEJ[facility] JEOVANNY 5 [facility] VITAMIN INC INC B-12 ECHO 01379 [place] [facility] DONTA TTHRC R-T 5 MEDICAL 2D SERV W/WOM-MOD FOUNDATIO E COMPL N SPEC&COLR D RADEX 09062 [facility] TEJEDA SHOULDER 5 [facility] COMPLETE INC INC MINIMUM 2 VIEWS RADEX 93753 [facility] TEJ[facility]A SPINE 5 [facility] CERVICAL INC INC 4 OR 5 VIEWS CREATINE 42049 [facility] TEJEDA KINASE MB 5 [facility] [place] [address] I[facility] TEJEDA FOLIC 5 [facility] ACID INC INC SERUM COMPREHEN 46968 I[facility] TEJEDA SIVE 5 [facility] [place] [address] I[facility] TEJEDA THYROID 5 [facility] STIMULATI INC INC NG HORMONE TSH COLLECTIO 57479 I[facility] TEJEDA N VENOUS 5 [facility] [place] [address] I[facility] TEJEDA FREE 5 [facility] THYROXINE INC INC LIPID 34893 I[facility] TEJEDA PANEL 5 [facility] INC INC 1 25 96213 [facility] TE[facility] DIHYDROXY 5 [facility] INCLUDES INC [place] [address] I[facility] TEJEDA TROPONIN 5 [facility] QUANTITAT INC INC SHIVANI BLOOD 95860 [facility] TE[facility] COUNT 5 [facility] COMPLETE INC INC AUTO&AUTO DIFRNTL WBC DUPLEX 19916 I[facility]ANA TEJEDA SCAN 5 [facility] EXTRACRAN INC INC IAL ART COMPL BI STUDY RHYTHM 86102 ILEANA MONTOYA ECG 1-3 5 [facility] W/INTERPR ETATION & REPORT RED BLOOD P9016 [facility] TEJEDA CELLS 5 [facility] LEUKOCYTE INC INC S REDUCED EACH UNIT TRANSFUSI 83600 ILEANA TEJEDA ON 5 [facility] BLOOD/BLO INC INC OD COMPONENT S BLOOD 71688 [facility] TEJEDA COUNT 5 [facility] HEMOGLOBI INC INC N BLOOD 04643 [facility] TEJEDA COUNT 5 [facility] HEMATOCRI INC INC T UNCLASSIF J3490 [facility] TEJ[facility] IED DRUGS 5 [facility] INC INC BLOOD 19032 [facility] TE[facility] TYPING 5 [facility] SEROLOGIC INC INC RH (D) COMPATIBI 46092 [facility] TEJEDA LITY EACH 5 [facility] UNIT INC INC IMMEDIATE SPIN TECHNIQUE COMPATIBI 11256 [facility] TEJ[facility] LITY EACH 5 [facility] UNIT INC INC ANTIGLOBU FILEMON ANTIBODY 85847 [facility] TEJEDA SCREEN 5 [facility] RBC EACH INC INC SERUM TECHNIQUE BLOOD 17753 [facility] TEJEDA TYPING 5 [facility] SEROLOGIC INC INC ABO BLOOD 33838 [facility] TEJEDA COUNT 5 [facility] HEMATOCRI INC INC T COLLECTIO 35665 ILEANA TEJEDA N VENOUS 5 [facility] BLOOD INC INC VENIPUNCT URE BLOOD 11828 I[facility]ANA TEJEDA COUNT 5 [facility] HEMOGLOBI INC INC N HEMOGLOBI 32713 COMBINED COMBINED N 5 PHYSICIAN PHYSICIAN GLYCOSYLA S LA S LA FAM A1C IRON 96139 COMBINED COMBINED BINDING 5 PHYSICIAN PHYSICIAN CAPACITY S LA S LA LIPID 56342 COM[facility]ED COMBINED PANEL 5 [place] [address] COMBINED COMBINED FREE 5 PHYSICIAN PHYSICIAN THYROXINE S LA S LA 25 55597 COMBINED COMBINED HYDROXY 5 PHYSICIAN PHYSICIAN INCLUDES S LA S LA FRACTIONS IF PERFORMED GENERAL 62926 [facility] COMBINED HEALTH 5 PHYSICIAN [place] [address] COMBINED COMBINED TRIIODOTH 5 PHYSICIAN PHYSICIAN YRONINE S LA S LA T3 TOTAL TT3 BLOOD 20142 COMBINED COMBINED COUNT 5 PHYSICIAN PHYSICIAN RETICULOC S LA S LA YTE AUTOMATED RADIOLOGI 76666 I[facility]ANA ILEANA C 5 [facility] EXAMINATI INC INC ON KNEE 3 VIEWS RADEX 87322 I[facility]ANA TEJEDA SPINE 5 [facility] CERVICAL INC INC 4 OR 5 VIEWS RADEX 26649 [facility] TEJEDA SHOULDER 5 [facility] COMPLETE INC INC MINIMUM 2 VIEWS INJ J0702 MERVAT RICHARDSONJUNI BETAMETHA 5 NNAMDI NNAMDI SONE ACETATE & PHOSPHATE 3 MG RADEX 14577 I[facility]ANA TEJEDA HIPS 4 [facility] BILATERAL INC INC 2 VIEWS ANTEROPOS T PELVIS RADEX HIP 26610 [facility] MEDICAL BRAIN [facility] IMAGING L ASS COMPLETE MINIMUM 2 VIEWS OPHTH 47694 [facility] 1 VISION ANG XM&EVAL COMPRE NEW PT 1/> VST PACKED 99.04 Kee Issa MD TRANSFUSI ON Encounters Encounter Start End Date Code Location Performer Type Date [facility] ILEANA - 7 7 [facility] OUTPATIEN INC T OFFICE 43808 I[facility] OUTPATIEN 7 7 [facility] T VISIT 5 INC MINUTES OFFICE 29195 [facility] PETTEY OUTPATIEN 7 7 PHYSICIAN T NEW 20 S GROUP MINUTES HOSPITAL ILEANA - 7 7 [facility] OUTPATIEN INC T OFFICE 68084 [facility] FRYMAN OUTPATIEN 7 7 PHYSICIAN T VISIT S GROUP 25 MINUTES OFFICE 94495 [facility] OUTPATIEN 7 7 [facility] T VISIT 5 INC MINUTES HOSPITAL ILEANA - 7 7 [facility] OUTPATIEN INC T HOSPITAL I[facility]ANA - 7 7 [facility] OUTPATIEN INC T OFFICE 39028 [facility] FRYMAN OUTPATIEN 7 7 PHYSICIAN T VISIT S GROUP 25 MINUTES HOSPITAL ILEANA - 7 7 [facility] OUTPATIEN INC T OFFICE 27786 [facility] FRYMAN OUTPATIEN 7 7 PHYSICIAN T VISIT S GROUP 25 MINUTES OFFICE 42157 [facility] FRYMAN OUTPATIEN 7 7 PHYSICIAN T VISIT S GROUP 15 MINUTES OFFICE 83216 [facility] FRYMAN OUTPATIEN 6 6 PHYSICIAN T VISIT 5 S GROUP MINUTES OFFICE 82427 [facility] YOUNGBLOOD OUTPATIEN 6 6 PHYSICIAN T VISIT GROUP 25 MINUTES OFFICE 02729 [facility] YOUNGBLOOD OUTPATIEN 6 6 PHYSICIAN T VISIT GROUP 25 MINUTES EMERGENCY 68617 [facility] PETER 6 6 PHYSICIAN U STEPHANIE DEPARTREGENCY MERIDIAN S, [facility] T VISIT MODERATE SEVERITY EMERGENCY 61813 ILEANA 6 6 [facility] DEPARTMEN INC T VISIT LIMITED/M INOR [facility] ILEANA - 6 6 [facility] OUTPATIEN [facility] ILEANA - 6 6 [facility] OUTPATIEN INC T OFFICE 08505 [facility] IRWIN OUTPATIEN 6 6 PHYSICIAN MAT T VISIT S GROUP 25 MINUTES HOSPITAL ILEANA - 6 6 [facility] OUTPATIEN INC [facility] ILEANA - 6 6 [facility] OUTPATIEN [facility] ILEANA - 6 6 [facility] OUTPATIEN INC T OFFICE 88598 ILEANA FRYMAN OUTPATIEN 6 6 [facility] T VISIT HOSPITAL 15 MINUTES OFFICE 65834 [facility] IRWIN OUTPATIEN 6 6 PHYSICIAN MAT T VISIT S GROUP 40 MINUTES HOSPITAL ILEANA - 6 6 [facility] OUTPATIEN INC T HOSPITAL ILEANA - 6 6 [facility] INPATIENT INC OFFICE 95462 ILEANA CHERYL OUTPATIEN 6 6 [facility] T VISIT HOSPITAL 25 MINUTES HOSPITAL ILEANA - 6 6 [facility] OUTPATIEN INC T OFFICE 70238 ILEANA MONTOYA OUTPATIEN 6 6 [facility] T VISIT HOSPITAL 15 MINUTES HOSPITAL ILEANA - 6 6 [facility] OUTPATIEN INC T EMERGENCY 87052 [facility] ARCE 6 6 PHYSICIAN [facility], [facility] T VISIT MODERATE SEVERITY EMERGENCY 34639 ILEANA 6 6 [facility] T VISIT LOW/MODER SEVERITY OFFICE 10666 ILEANA MONTOYA OUTPATIEN 5 5 [facility] T VISIT HOSPITAL 10 MINUTES OFFICE 95037 [facility] OUTPATIEN 5 5 CULAR MAT T [facility] 60 CONSULTAN MINUTES [facility] ILEANA - 5 5 [facility]PATIEN [facility] ILEANA - 5 5 [facility] OUTPATIEN INC T OFFICE 35944 ILEANA MONTOYA OUTPATIEN 5 5 [facility] NEW 30 HOSPITAL MINUTES OFFICE 80818 M[facility]AT PAULPATIEN 5 5 NNAMDI NNAMDI T VISIT 15 MINUTES OFFICE 67824 MERVAT CRUZ 5 5 NNAMDI NNAMDI T VISIT 15 MINUTES HOSPITAL ILEANA - 5 5 [facility] OUTPATIEN INC T HOSPITAL ILEANA - 5 5 [facility] OUTPATIEN INC T OFFICE 85069 ARNOLD ARNOLD OUTPATIEN 5 5 NNAMDI NNAMDI T VISIT 15 MINUTES OFFICE 98837 [facility] [place] TRA OUT[place]EN 5 5 [place] 30 [facility]ED MINUTES [facility] - 5 5 [facility] OFFICE [id number] MERVAT MERVAT CAVAZOSEN 5 5 NNAMDI NNAMDI T VISIT 15 MINUTES OFFICE 35400 DEBRAJUNI MERVAT CAVAZOSEN 5 5 NNAMDI NNAMDI T VISIT 15 MINUTES OFFICE 94332 DEBRAJUNI MERVAT PAULPATIEN 5 5 NNAMDI NNAMDI T VISIT 15 MINUTES OFFICE 02081 DEBRAJUNI MERVAT PAULPATIEN 5 5 NNAMDI NNAMDI T VISIT 15 MINUTES [facility] - [facility] T OFFICE 92032 MERVAT CAVAZOSEN 4 4 NNAMDI NNAMDI T VISIT 15 MINUTES OFFICE 67587 MERVAT CRUZ 4 4 NNAMDI NNAMDI T VISIT 15 MINUTES OFFICE 77332 MERVAT CROWELL OUTPATIEN 4 4 NNAMDI NNAMDI T NEW 30 MINUTES Inpatient MATTHEW Issa MD (IN) 3 16:14 3 16:10 [facility]
--- OUTSIDE RECORDS SUMMARY | 2016-08-02 13:09 | External Medical Summary Rpt ---
Author Author , Organization [employer] Address Unknown Phone Unavailable Care Team Providers Care Waste Reclaimer Name Role Phone MERVAT COTO, MERVAT Unavailable Unavailable NNAMDI MERVAT NNAMDI, MERVAT Unavailable Unavailable NNAMDI BEINEKE, BEINEKE Unavailable Unavailable BEINEKE STEPHANIE, BEINEKE Unavailable Unavailable STEPHANIE MATUTE ALL, MATUTE ALL Unavailable Unavailable [facility] Unavailable Unavailable SERVICE, [facility] Unavailable Unavailable SERVICE, [facility] Un[facility] Unavailable Unavailable [place], [facility] Unavailable Unavailable [facility], [facility] KEATON BRAIN, Unavailable Unavailable KEATON BRAIN [facility], Unavailable Unavailable [facility] CHERYL JUAN, CHERYL Unavailable Unavailable JUAN YOUNGBLOOD, YOUNGBLOOD Unavailable Unavailable FRYMAN, FRYMAN Unavailable Unavailable FRYMAN EUG, FRYMAN Unavailable Unavailable EUG DORETHA JUAN, DORETHA Unavailable Unavailable JUAN [facility] Unavailable Unavailable INC, [facility] Unavailable Unavailable H[facility]PITAL, [facility] Unavailable Unavailable HOSPITAL P, [facility], [facility]available Unavailable [facility], Unavailable Unavailable [facility] OBANDO TRA, OBANDO TRA Unavailable Unavailable [facility] SOLANO DONTA, SOLANO DONTA Unavailable Unavailable SUNNY JR DWI, SUNNY Unavailable Unavailable JR DWI [facility], Un[facility]available [facility], [facility] PETTEY, PETTEY Unavailable Unavailable RENUSCH CARRIE, RENUSCH Unavailable Unavailable CARRIE SCIFRES ANG, SCIFRES Unavailable Unavailable ANG IRWIN MAT, Unavailable Unavailable IRWIN MAT SOTINGEAMERCY BROWN, Unavailable Unavailable SOTINGEAMERCY BROWN [facility] # Unavailable Unavailable [id number], [facility] # [id number] WALKER FOR, WALKER Unavailable Unavailable FOR Purpose Continuity of Care Document - 10-29-2010 through 2016 Problems Code Diagnosis DOS Provider Status K529 NONINFECTIV 06-13-2016 [facility] ITIS & COLITIS UNS E538 DEFICIENCY 06-02-2016 [facility] OF OTHER PHYSICIANS SPECIFIED B GROUP GROUP VITAMINS M7541 IMPINGEMENT 06-01-2016 [facility] SYNDROME PHYSICIANS OF RIGHT GROUP SHOULDER M7542 IMPINGEMENT 06-01-2016 [facility] SYNDROME PHYSICIANS OF LEFT GROUP SHOULDER Z1231 ENCOUNTER 06-01-2016 [facility]IG [facility] NEOPLASM BREAST I10 ESSENTIAL 05-19-2016 [facility] PRIMARY PHYSICIANS HYPERTENSIO GROUP N M130 POLYARTHRIT 05-19-2016 [facility] IS PHYSICIANS UNSPECIFIED GROUP M542 CERVICALGIA 05-19-2016 [facility] PH[facility]ANS GROUP R000 TACHYCARDIA 05-19-2016 [facility] PHYSICIANS UNSPECIFIED GROUP B349 VIRAL 05-07-2016 [facility] UNSPECIFIED INC [id number] PAIN IN 05-06-2016 [facility] RIGHT [facility] SHOULDER INC G8929 OTHER 05-05-2016 [facility] CHRONIC PHYSICIANS PAIN GROUP R7989 OTHER SPEC 05-05-2016 [facility] ABNORMAL PHYSICIANS FINDINGS GROUP BLOOD CHEMISTRY E559 VITAMIN D 04-16-2016 [facility] DEFICIENCY [facility] UNSPECIFIED INC [id number] PAIN IN 04-16-2016 [facility] LEFT PHYSICIANS SHOULDER GROUP J0100 ACUTE 03-22-2016 [facility] MAXILLARY PHYSICIANS SINUSITIS GROUP UNSPECIFIED [id number] MUSCLE 11-28-2015 [facility] SPASM OF PHYSICIAN BACK GROUP L0390 CELLULITIS 10-20-2015 [facility] UNSPECIFIED PHYSICIAN GROUP M37600 PAIN IN 09-18-2015 [facility] [id number] CONTUSION 09-18-2015 [facility] OF LEFT PHYSICIANS, HAND PLLC INITIAL ENCOUNTER Y9847PZ UNSPECIFIED 09-18-2015 [facility] INJURY MEDICAL WRIST HAND IMAGING [facility] FINGERS INITIAL D649 ANEMIA 08-25-2015 [facility] UNSPECIFIED PHYSICIANS GROUP I2510 ASHD SALAMATOF 08-25-2015 [facility] CORONARY PHYSICIANS ARTERY W/O GROUP ANGINA PECTORIS R001 BRADYCARDIA 08-25-2015 [facility] PHYSICIANS UNSPECIFIED GROUP E785 HYPERLIPIDE 08-13-2015 I[facility] Q32149 ATHEROSCLER 08-13-2015 [facility] TPLNT HRT W/O AP R002 PALPITATION 08-05-2015 [facility] S [facility] INC D509 IRON 07-30-2015 [facility] DEFICIENCY PHYSICIANS ANEMIA GROUP UNSPECIFIED I4891 UNSPECIFIED 07-30-2015 [facility] ATRIAL PHYSICIANS FIBRILLATIO GROUP N O34180 ASHD SALAMATOF 07-29-2015 [facility] COR ART PHYSICIANS W/UNSTABLE GROUP ANGINA PECTORIS I499 CARDIAC 07-29-2015 [facility] UNSPECIFIED SERVICE I517 CARDIOMEGAL 07-29-2015 [facility] R0602 SHORTNESS 07-29-2015 [facility] OF BREATH PHYSICIANS GROUP H20172 PERSONAL 07-29-2015 [facility] P DEPENDENCE Z951 PRESENCE OF 07-29-2015 [facility] AORTOCORONA [facility] P RY [place] GRAFT J0190 ACUTE 06-02-2015 [facility] SINUSITIS [facility] J029 ACUTE 06-02-2015 [facility] PHARYNGITIS [facility] UNSPECIFIED R42 DIZZINESS 05-01-2015 [facility] Z23 ENCOUNTER 05-01-2015 [facility] J069 ACUTE UPPER 04-28-2015 [facility]PIR[facility]ORY [facility] INFECTION UNSPECIFIED R309 PAINFUL 03-12-2015 [facility] UNSPECIFIED I340 NONRHEUMATI 03-10-2015 [facility] INSUFFICIEN CY I361 NONRHEUMATI 03-10-2015 [facility] TRICUSPID SERV [facility] INSUFFICIEN CY I371 NONRHEUMATI 03-10-2015 [facility] PULMONARY SERV [facility] INSUFFICIEN CY L47490 PRIMARY 03-10-2015 [facility] OSTEOARTHRI MEDICAL TIS LEFT IMAGING ASS SHOULDER H32348 SPONDYLOSIS 03-10-2015 [facility] W/O MEDICAL MYELOPATH/R IMAGING ASS ADICULOPATH Y CERV RGN M5032 OTH CERV 03-10-2015 [facility] DISC MEDICAL DEGENERATIO IMAGING ASS N MID-CERVICA L REGION 36285 VARIANTS 12-02-2014 MERVAT COTO MIGRAINE NEC INTRACT MIGRAINE W/[place] 08699 OSTEOARTHRO 12-02-2014 M[facility]AT COTO S INVLV MX SITES BUT NOT SPEC GEN 7242 LUMBAGO 10-17-2014 M[facility] COTO 2859 UNSPECIFIED 09-06-2014 [facility] 2449 UNSPECIFIED 09-04-2014 [facility] HYPOTHYROID [place]M 16730 DIAB W/O 09-04-2014 [facility] COMP TYPE PHYSICIANS II/UNS NOT LA STATED UNCNTRL 2689 UNSPECIFIED 09-04-2014 [facility] VITAMIN D PHYSICIANS DEFICIENCY LA 2724 OTHER AND 09-04-2014 [facility] UNSPECIFIED PHYSICIANS [place] HYPERLIPIDE JOSEPH 44997 OBESITY, 09-03-2014 M[facility]AT COTO UNSPECIFIED 7224 DEGENERATIO 08-09-2014 [facility] [place] [facility] PLC INTERVERTEB RAL DISC 53899 OSTEOARTHRO 07-30-2014 [facility] S UNSPEC MEDICAL WHETHER IMAGING ASS GEN/LOC SHLDR REGION 54754 OSTEOARTHRO 07-30-2014 [facility] SIS UNSPEC MEDICAL WHETHER IMAGING ASS GEN/LOC LOWER LEG 32640 PAIN IN 07-30-2014 [facility] JOINT, MEDICAL SHOULDER IMAGING ASS REGION 68518 PAIN IN 07-30-2014 [facility], MEDICAL LOWER LEG IMAGING ASS 7231 CERVICALGIA 07-30-2014 [facility] 67556 SPASM OF 06-14-2014 MERVAT NNAMDI MUSCLE 4659 ACUTE URIS 05-17-2014 DEBRAJUNI COTO OF UNSPECIFIED SITE 5589 OTH&UNSPEC 05-17-2014 DEBRAJUNI COTO NONINFECTIO US GASTROENTER ITIS&COLITI S 38670 PAIN IN 02-05-2014 [facility] MEDICAL PELVIC IMAGING ASS REGION AND THIGH 77164 INSOMNIA 02-04-2014 M[facility]AT COTO UNSPECIFIED 02460 PAIN IN 11-02-2013 [facility] COTO JOINT, ANKLE AND FOOT 4011 ESSENTIAL 07-23-2013 M[facility] COTO HYPERTENSIO N, BENIGN 3674 PRESBYOPIA 11-20-2010 [facility] Na ND Rx Da Fi Fi Am Da Di Ph RX Ph St me C No te ll ll ou ys ag ar # ys at rm s nt no ma ic us Or Da si cy ia de te s n re d ## 10 04 10 5 00 WA Ac ## -1 -2 .0 00 L- ti ## 6- 8- 00 08 MA ve ## 20 20 83 RT ## 16 17 66 # 01 PH AR MA CY #5 91 GA 53 04 04 90 30 00 AK Ac BA 74 -0 -2 .0 00 L- ti PE 60 5- 8- 00 07 MA ve NT 10 20 20 48 RT IN 10 17 17 06 5 11 PH 10 AR 0 MA MG CY CA #5 PS 91 UL E CA 54 04 04 30 30 00 AK Ac AV 45 -0 -2 .0 00 [...] 0 MG #5 91 TA BL ET ON 57 03 04 15 25 00 [...] CY CA #5 PS 91 UL E CA 54 03 03 30 30 00 WA [...] #5 91 TA BL ET AT 00 05 21 89 90 00 WA Ac EN 78 -0 -2 .0 00 L- ti OL 11 1- 4- 00 07 MA ve OL 50 20 20 47 RT 61 17 17 37 50 0 46 PH AR MG MA CY TA BL #5 ET 91 AM 00 03 90 90 00 WA Ac LO 37 -0 -2 .0 00 L- ti DI 85 1- 4- 00 07 MA ve PI 20 20 20 47 RT NE 90 17 17 37 5 47 PH BE AR SY MA LA CY TE 5 #5 91 MG TA B CA 00 02 03 10 5 00 WA [...] 80 2- 3- 00 07 MA ve CA 99 20 20 0 46 RT IL [...] 5 #5 91 MG TA B 00 02 30 30 00 WA Ac PI [...] TA BL #5 ET 91 AM 68 02 30 30 00 WA Ac IO 38 -2 -2 .0 00 L- ti DA 20 7- 4- 00 07 MA ve RO 22 20 20 46 RT NE 71 17 17 73 4 22 PH HC AR L MA 20 CY 0 MG #5 91 TA BL ET CA 54 01 02 30 30 00 WA Ac AV 45 -2 -2 .0 00 L- ti 80 7- 4- 00 07 MA ve TA 92 20 20 46 RT TI 51 17 17 73 N 0 23 PH SO AR DI MA UM CY 40 #5 91 MG TA B LI 54 01 02 60 30 00 WA Ac SI 45 -1 -0 .0 00 L- ti NO 80 0- 3- 00 07 MA ve CA 99 20 20 40 RT IL 11 17 17 37 -H [address] AR Z MA 20 CY -2 5 #5 MG 91 TA B CA 54 12 04 19 30 WA Ac AV 45 -3 -2 .0 00 L- ti 80 1- 7- 00 07 MA ve TA 92 20 20 45 RT TI 51 16 17 57 N 0 36 PH SO AR DI MA UM CY 40 #5 91 MG TA B AM 00 03 21 29 30 WA Ac LO 37 -0 -2 .0 00 L- ti DI 85 2- 7- 00 07 MA ve PI 20 20 20 46 RT NE 90 17 17 21 5 07 PH BE AR SY MA LA CY TE 5 #5 91 MG TA B WA Ac PI 53 -0 -2 .0 00 L- ti RI 61 2- 7- 00 08 MA ve N 00 20 20 83 RT EC 41 17 17 75 0 27 PH 81 AR MA MG CY TA #5 BL 91 ET GA 65 AK Ac BA 16 -0 -2 .0 00 L- ti PE 20 2- 7- 00 07 MA ve NT 10 20 20 46 RT IN 15 17 17 21 0 10 PH 10 AR 0 MA MG CY CA #5 PS 91 UL E AM 00 01 01 20 10 00 AK Ac OX 09 -0 -2 .0 00 L- ti IC 33 2- 7- 00 07 MA ve IL 10 20 20 46 RT LI 90 17 17 21 N 5 12 PH 50 AR 0 MA MG CY CA #5 PS 91 UL E AT 00 06 10 3 30 30 WA 71 CR Ac EN 37 -2 -2 .0 L- 24 AG ti OL 80 3- 2- 00 MA 39 ER ve OL 23 20 20 RT 8 10 11 11 JA 50 1 PH ME AR S MG MA K CY TA # BL ET 10 05 91 LI 68 06 10 3 30 30 WA 71 CR Ac SI 18 -2 -2 .0 L- 24 AG ti NO 00 3- 2- 00 MA 39 ER ve CA 52 20 20 RT 9 IL 00 11 11 JA -H [address] AR S Z MA K 20 CY -2 # 5 MG 10 05 TA 91 B CA 68 11 10 4 30 30 WA [...] # BL ET 10 05 91 LI 68 06 09 3 30 30 WA 71 CR Ac SI 18 -2 -2 .0 L- 24 AG ti NO 00 3- 3- 00 MA 39 ER ve CA 52 20 20 RT 9 IL 00 11 11 JA -H [address] AR S Z MA K 20 CY -2 # 5 MG 10 05 TA 91 B CA 54 11 09 4 30 30 WA [...] 3- 2- 00 MA 39 ER ve CA 99 20 20 RT 9 IL 11 11 11 JA -H [address] AR S Z MA K 20 CY -2 # 5 MG 10 05 TA 91 B CA 54 11 08 4 30 30 WA [...] Is Given on t er Refuse d PCV13 FRYMAN No VACCIN 2016 [facility] E FOR INTRAM USCULA R USE IIV3 FRYMAN No VACCIN 2016 [facility] E SPLIT VIRUS 0.5 ML DOSAGE IM USE Procedures Procedure DOS Code Location Performer Comment IAADIADOO 64664 [facility] INFLUENZA INC INC THERAPEUT 18384 [facility] IC 7 PHYSICIAN PHYSICIAN PROPHYLAC S GROUP S GROUP TIC/DX INJECTION SUBQ/IM SCREENING G0202 [facility]OT[facility] 7 MEDICAL MAMMOGRAP IMAGING HY RIGOBERTO ASS INCL CAD WHEN PERFORMD SCREENING 88623 [facility] MAMMOGRAP INC INC HY BI 2-VIEW BREAST INC CAD ARTHROCEN 47900 [facility] PETTE TESIS 7 PHYSICIAN ASPIR&/IN S GROUP J MAJOR JT/BURSA W/O US IAADIADOO 01142 [facility] INFLUENZA INC INC RADEX 09911 [facility] TEJEDA SHOULDER 7 [facility] COMPLETE INC INC MINIMUM 2 VIEWS BLOOD 92039 [facility] TEJEDA COUNT 7 [facility] COMPLETE INC INC AUTO&AUTO DIFRNTL WBC LIPID 91794 [facility] TEJ[facility] PANEL 7 [facility] INC INC CYANOCOBA 03812 [facility] JEOVANNY 7 [facility] VITAMIN INC INC B-12 COLLECTIO 75424 [facility] TEJEDA N VENOUS 7 [facility] [place] [address] ILEANA TEJEDA FREE 7 [facility] [place] [address] I[facility]ANA TEJEDA THYROID 7 [facility] STIMULATI INC INC NG HORMONE TSH COMPREHEN 12378 [facility] TEJEDA SIVE 7 [facility] METABOLIC INC INC PANEL RADEX 87949 [facility] TEJEDA HAND 6 [facility] MINIMUM 3 INC INC VIEWS RADEX 72224 [facility] MAT[facility] ALL HAND 2 6 MEDICAL VIEWS IMAGING ASS ECG 84792 [facility] TEJEDA ROUTINE 6 [facility] ECG INC INC W/LEAST 12 LDS TRCG ONLY W/O I&R ECG 26620 [facility] IRIWN ROUTINE 6 PHYSICIAN MAT ECG S GROUP W/LEAST 12 LDS I&R ONLY BLOOD 35383 [facility] TEJEDA OCCULT 6 [facility] PEROXIDAS INC INC E ACTV QUAL FECES 1-3 SPEC BLOOD 20920 I[facility] TEJEDA OCCULT [address] [facility] PEROXIDAS INC INC E ACTV QUAL FECES 1-3 SPEC BLOOD 74697 I[facility] TEJEDA OCCULT [address] [facility] PEROXIDAS INC INC E ACTV QUAL FECES 1-3 SPEC BLOOD 26328 [facility]ANA MONTOYA OCCULT 6 [facility] E ACTV QUAL FECES 1-3 SPEC ECG 05615 [facility] ROUTINE 6 PHYSICIAN MAT ECG S GROUP W/LEAST 12 LDS I&R ONLY ECG 26655 [facility] [address] [facility] ECG INC INC W/LEAST 12 LDS TRCG ONLY W/O I&R OBSERVATI 46363 [facility] ON CARE 6 PHYSICIAN JUAN DISCHARGE S GROUP MANAGEMEN T SBSQ 98424 [facility] 6 PHYSICIAN MAT CARE/DAY S GROUP 25 MINUTES CRITICAL 81023 [facility] 6 PHYSICIAN CARRIE ILL/INJUR S, PLL ED PATIENT INIT 30-74 MIN AMB A0427 [facility] SERVICE 6 AMBULANCE AMBULANCE ALS SERVICE SERVICE EMERGENCY TRANSPORT LEVEL 1 INITIAL 06547 [facility] OBSERVATI 6 PHYSICIAN JUAN ON S GROUP CARE/DAY 50 MINUTES GROUND A0425 [facility] MILEAGE 6 AMBULANCE AMBULANCE PER SERVICE SERVICE STATUTE MILE RADIOLOGI 25666 [facility] C EXAM 6 MEDICAL STEPHANIE CHEST 2 IMAGING VIEWS ASS FRONTAL&L ATERAL INITIAL 29922 [facility] 6 PHYSICIAN MAT CARE/DAY S GROUP 70 MINUTES ECG 88992 ILEANA CORREA JR ROUTINE 6 [facility] W/LEAST P 12 LDS I&R ONLY SCREENING G0202 [facility] [address]JED[address] [facility] MAMMOGRAP INC INC HY RIGOBERTO INCL CAD WHEN PERFORMD COMPUTER- 31605 ILEANA [address]JED[address] AIDED [address] [facility] DETECTION INC INC SCREENING MAMMOGRAP HY IM ADM 01681 [facility] MONTOYA PRQ ID 6 [facility] SUBQ[facility]IM [facility]OSP[facility] NJXS EA VACCINE IIV3 51518 ILEANA LINDSAY VACCINE 6 [facility] SPLIT [facility] VIRUS 0.5 ML DOSAGE IM USE PCV13 04144 ILEANA CASTILLOKELEIDA VACCINE 6 [facility] USE [facility] AD[facility] 93642 ILEANA FRFLORA PRQ ID 6 [facility] SUBQ/IM HOSPITAL NJXS 1 VACCINE URNLS DIP 43537 I[facility] MONTOYA 5 [facility] STICK/TAB HOSPITAL LET RGNT NON-AUTO W/O MICRSCP ECG 85162 [facility] TEJEDA ROUTINE 5 [facility] ECG INC INC W/LEAST 12 LDS TRCG ONLY W/O I&R ECG 92085 [facility] ROUTINE 5 CULAR MAT ECG CONSULTAN W/LEAST TS O 12 LDS I&R ONLY RADEX 51824 [facility] TEJEDA SPINE 5 [facility] CERVICAL INC INC 4 OR 5 VIEWS RADEX 14765 [facility] TEJEDA SHOULDER 5 [facility] COMPLETE INC INC MINIMUM 2 VIEWS BLOOD 03110 [facility] TEJEDA COUNT 5 [facility] COMPLETE INC INC AUTO&AUTO DIFRNTL WBC LIPID 10926 [facility] TEJEDA PANEL 5 [facility] INC INC ECHO 75296 [place] SOL[facility] DONTA TTHRC R-T 5 MEDICAL 2D SERV W/WOM-MOD FOUNDATIO E COMPL N SPEC&[place] [address] ILEANA TEJEDA TROPONIN 5 [facility] QUANTITAT INC INC SHIVANI DUPLEX 33261 [facility] TEJ[facility] SCAN 5 [facility] EXTRACRAN INC INC IAL ART COMPL BI STUDY 1 25 86103 [facility] TEJED[facility] DIHYDROXY 5 [facility] INCLUDES [place] [address] I[facility] TEJEDA THYROID 5 [facility] STIMULATI INC INC NG HORMONE TSH COLLECTIO 63270 [facility] TEJEDA N VENOUS 5 [facility] [place] [address] I[facility] TEJEDA FREE 5 [facility] THYROXINE INC INC CREATINE 68608 I[facility]ANA TEJEDA KINASE MB 5 [facility] [place] [address] I[facility]ANA TEJEDA FOLIC 5 [facility] ACID INC INC SERUM COMPREHEN 74170 [facility] TEJEDA SIVE 5 [facility] METABOLIC INC INC PANEL CREATINE 73105 [facility] TEJEDA KINASE 5 [facility] TOTAL INC INC CYANOCOBA 04060 [facility] TEJEDA JEOVANNY 5 [facility] VITAMIN INC INC B-12 RHYTHM 01845 ILEANA MONTOYA ECG 1-3 5 [facility] W/INTERPR ETATION & REPORT TRANSFUSI 63838 I[facility] TEJEDA ON 5 [facility] BLOOD/BLO INC INC OD COMPONENT S RED BLOOD P9016 [facility] TEJEDA CELLS 5 [facility] LEUKOCYTE INC INC S REDUCED EACH UNIT BLOOD 55806 [facility] TEJEDA COUNT 5 [facility] HEMATOCRI INC INC T BLOOD 60770 [facility] TEJEDA COUNT 5 [facility] HEMOGLOBI INC INC N UNCLASSIF J3490 [facility] TEJEDA IED DRUGS 5 [facility] INC INC BLOOD 44192 [facility] TEJEDA TYPING 5 [facility] SEROLOGIC INC INC RH (D) COMPATIBI 68129 [facility] TEJEDA LITY EACH 5 [facility] UNIT INC INC IMMEDIATE SPIN TECHNIQUE COMPATIBI 93571 [facility] TEJEDA LITY EACH 5 [facility] UNIT INC INC ANTIGLOBU FILEMON BLOOD 51521 [facility] TEJEDA COUNT 5 [facility] HEMOGLOBI INC INC N ANTIBODY 94745 [facility] TEJEDA SCREEN 5 [facility] RBC EACH INC INC SERUM TECHNIQUE BLOOD 10597 [facility] TEJEDA TYPING 5 [facility] SEROLOGIC INC INC ABO BLOOD 88718 [facility] TEJEDA COUNT 5 [facility] HEMATOCRI INC INC T COLLECTIO 31304 I[facility]ANA TEJEDA N VENOUS 5 [facility] BLOOD INC INC VENIPUNCT URE HEMOGLOBI 65498 COMBINED COMBINED N 5 PHYSICIAN PHYSICIAN GLYCOSY[place] [address] COMBINED COMBINED FREE 5 PHYSICIAN PHYSICIAN THYROXINE S LA S LA 25 83462 COMBINED COMBINED HYDROXY 5 PHYSICIAN PHYSICIAN INCLUDES [place] [address] COMBINED COMBINED TRIIODOTH 5 PHYSICIAN PHYSICIAN YRONINE S LA S LA T3 TOTAL TT3 BLOOD 19704 COMBINED COMBINED COUNT 5 PHYSICIAN PHYSICIAN RETICULOC S LA S LA YTE AUTOMATED LIPID 52686 COMBINED COMBINED PANEL 5 PHYSICIAN PHYSICIAN S LA S LA GENERAL 67499 COMBINED COMBINED HEALTH 5 PHYSICIAN PHYSICIAN PANEL S LA S LA IRON 58044 COMBINED COMBINED BINDING 5 PHYSICIAN PHYSICIAN CAPACITY S LA S LA RADIOLOGI 09366 [facility] TEJEDA C 5 [facility] EXAMINATI INC INC ON KNEE 3 VIEWS RADEX 65628 [facility] TEJEDA SHOULDER 5 [facility] COMPLETE INC INC MINIMUM 2 VIEWS RADEX 07345 [facility] TEJEDA SPINE 5 [facility] CERVICAL INC INC 4 OR 5 VIEWS INJ J0702 [facility] CROWELL BETAMETHA 5 NNAMDI NNAMDI SONE ACETATE & PHOSPHATE 3 MG RADEX 58476 ILEANA ILEANA HIPS 4 [facility] BILATERAL INC INC 2 VIEWS ANTEROPOS T PELVIS RADEX HIP 84008 [facility] MED[facility]RAIN UNILATERA IMAGING L ASS COMPLETE MINIMUM 2 VIEWS OPHTH 54483 [facility] 1 VISION ANG XM&EVAL COMPRE NEW PT 1/> VST Encounters Encounter Start End Date Code Location Performer Type Date OFFICE 11497 [facility] OUTPATIEN 7 7 [facility] T VISIT 5 INC MINUTES [facility]OSPITAL [facility] - [facility] OUTPATIEN INC T OFFICE 96702 [facility] PETTEY OUTPATIEN 7 7 PHYSICIAN T NEW 20 S GROUP MINUTES HOSPITAL I[facility] - 7 7 [facility] OUTPATIEN INC T OFFICE 08848 [facility] FRYMAN OUTPATIEN 7 7 PHYSICIAN T VISIT S GROUP 25 MINUTES HOSPITAL I[facility] - 7 7 [facility] OUTPATIEN INC T OFFICE 03436 [facility] OUTPATIEN 7 7 [facility] T VISIT 5 INC MINUTES [facility]OSPITAL I[facility] - 7 7 [facility] OUTPATIEN INC T OFFICE 67158 [facility] FRYMAN OUTPATIEN 7 7 PHYSICIAN T VISIT S GROUP 25 MINUTES HOSPITAL ILEANA - 7 7 [facility] OUTPATIEN INC T OFFICE 57509 [facility] [place] OUTPATIEN 7 7 PHYSICIAN T VISIT S GROUP 25 MINUTES OFFICE 66645 [facility] OUTPATIEN 7 7 PHYSICIAN T VISIT S GROUP 15 MINUTES OFFICE 76399 [facility] OUTPATIEN 6 6 PHYSICIAN T VISIT 5 S GROUP MINUTES OFFICE 08069 [facility]NG[place] OUTPATIEN 6 6 PHYSICIAN T VISIT GROUP 25 MINUTES OFFICE 48968 [facility] [place] OUTPATIEN 6 6 PHYSICIAN T VISIT GROUP 25 MINUTES EMERGENCY 13392 CHRIS PETER 6 6 PHYSICIAN U [facility]PH[facility]IE [facility] T VISIT MODERATE SEVERITY EMERGENCY 88816 [facility] 6 6 [facility] DEPARTMEN INC T VISIT LIMITED/M INOR [facility] ILEANA - 6 6 [facility] ILEANA - 6 6 [facility] T OFFICE 29008 [facility] IRWIN OUTPATIEN 6 6 PHYSICIAN MAT T VISIT S GROUP 25 MINUTES [facility]OSP[facility] - 6 6 [facility] ILEANA - 6 6 [facility]PAT[facility] ILEANA - 6 6 [facility] T OFFICE 77118 [facility] MONTOYA [facility]PATIEN 6 6 [facility] 15 [facility]ES [facility] - 6 6 [facility] T OFFICE 75582 [facility] IRWIN OUTPATIEN 6 6 PHYSICIAN MAT T VISIT S GROUP 40 MINUTES [facility]OSP[facility] - 6 6 [facility] INPATIENT INC OFFICE 88194 [facility] LUNA OUTPATIEN 6 6 [facility] T [facility]IS[facility]OSP[facility] 25 MINUTES [facility]OSPITAL [facility] - 6 6 [facility] T OFFICE 73618 [facility] MONTOYA OUTPATIEN 6 6 [facility] T [facility]IS[facility] HOSPITAL 15 MINUTES EMERGENCY 90948 [facility] 6 6 [facility] DEPARTMEN INC T VISIT LOW/MODER SEVERITY EMERGENCY 18180 CHRIS ARCE 6 6 PHYSICIAN FOR [facility] T VISIT MODERATE SEVERITY [facility]OSP[facility] - 6 6 [facility] T OFFICE 56541 [facility] MONTOYA OUTPATIEN 5 5 [facility] T VIS[facility]OSP[facility] 10 MINUTES OFFICE 21034 [facility] IRWIN OUTPATIEN 5 5 CULAR MAT T NEW 60 CONSULTAN MINUTES [facility] ILEANA - 5 5 [facility] 5 5 [facility] T OFFICE 23207 [facility] MONTOYA OUTPATIEN 5 5 [facility] T NEW 30 HOSPITAL MINUTES OFFICE 52762 MERVAT CROWELL OUTPATIEN 5 5 NNAMDI NNAMDI T VISIT 15 MINUTES OFFICE 05379 M[facility] CROWELL OUTPATIEN 5 5 NNAMDI NNAMDI T VISIT 15 MINUTES [facility] - 5 5 [facility] T [facility] - 5 5 [facility] T OFFICE 03843 DEBRAJUNI MERVAT CRUZ 5 5 NNAMDI NNAMDI T VISIT 15 MINUTES OFFICE 91848 [facility] TRA OUTPATIEN 5 5 [place] T NEW 30 ORTHOPAED MINUTES [facility] ILEANA - 5 5 [facility] INC T OFFICE 43337 MERVAT CRUZ 5 5 NNAMDI NNAMDI T VISIT 15 MINUTES OFFICE 51329 MERVAT CRUZ 5 5 NNAMDI NNAMDI T VISIT 15 MINUTES OFFICE 93808 MERVAT CRUZ 5 5 NNAMDI NNAMDI T VISIT 15 MINUTES OFFICE 66033 MERVAT CRUZ 5 5 NNAMDI NNAMDI T VISIT 15 MINUTES [facility] ILEANA - 4 4 [facility] INC T OFFICE 96399 MERVAT CRUZ 4 4 NNAMDI NNAMDI T VISIT 15 MINUTES OFFICE 43398 MERVAT CRUZ 4 4 NNAMDI NNAMDI T VISIT 15 MINUTES OFFICE 90900 MERVAT CRUZ 4 4 NNAMDI NNAMDI T NEW 30 MINUTES
--- OUTSIDE RECORDS SUMMARY | 2016-08-02 13:09 | External Medical Summary Rpt ---
Author Author , Organization [employer] Address Unknown Phone Unavailable Care Team Providers Care Student Support Services Director Name Role Phone MERVAT COTO, MERVAT Unavailable Unavailable NNAMDI MERVAT NNAMDI, MERVAT Unavailable Unavailable NNAMDI BEINEKE, BEINEKE Unavailable Unavailable BEINEKE STEPHANIE, BEINEKE Unavailable Unavailable STEPHANIE MATUTE ALL, MATUTE ALL Unavailable Unavailable [facility] Unavailable Unavailable SERVICE, [email or web address] Unavailable Unavailable SERVICE, [facility] Un[facility] Unavailable Unavailable [place], [facility] Unavailable Unavailable [facility], [facility], Unavailable Unavailable [facility], Unavailable Unavailable [facility] CHERYL JUAN, CHERYL Unavailable Unavailable JUAN YOUNGBLOOD, YOUNGBLOOD Unavailable Unavailable FRYMAN, FRYMAN Unavailable Unavailable FRYMAN EUG, FRYMAN Unavailable Unavailable EUG DORETHA JUAN, DORETHA Unavailable Unavailable JUAN [facility] Unavailable Unavailable INC, [facility] Unavailable [facility]available HOSPITAL, [facility] Unavailable [facility]available HOSPITAL P, [facility], [facility]available Unavailable [facility], Unavailable Unavailable [facility] OBANDO TRA, OBANDO TRA Unavailable Unavailable [facility] Unavailable [...] SOTINGEAMERCY [facility] # Unavailable Unavailable [id number], [facility] # [id number] WALKER FOR, WALKER Unavailable Unavailable FOR Purpose Continuity of Care Document - 10-29-2010 through 2016 Problems Code Diagnosis DOS Provider Status K529 NONINFECTIV 06-13-2016 [facility] ITIS & COLITIS UNS E538 DEFICIENCY 06-02-2016 [facility] OTHER PHYSICIANS SPECIFIED B GROUP GROUP VITAMINS M7541 IMPINGEMENT 06-01-2016 [facility] SYNDROME PHYSICIANS OF RIGHT GROUP SHOULDER M7542 IMPINGEMENT 06-01-2016 [facility] SYNDROME PHYSICIANS OF LEFT GROUP SHOULDER Z1231 ENCOUNTER 06-01-2016 [facility] MALIG [facility] NEOPLASM BREAST I10 ESSENTIAL 05-19-2016 [facility] PRIMARY PHYSICIANS HYPERTENSIO GROUP N M130 POLYARTHRIT 05-19-2016 [facility] IS PHYSICIANS UNSPECIFIED GROUP M542 CERVICALGIA 05-19-2016 [facility] PHYSICIANS GROUP R000 TACHYCARDIA 05-19-2016 [facility] PHYSICIANS UNSPECIFIED GROUP B349 VIRAL 05-07-2016 [facility] UNSPECIFIED INC Q26992 PAIN IN 05-06-2016 [facility] RIGHT [facility] SHOULDER INC G8929 OTHER 05-05-2016 [facility] CHRONIC PHYSICIANS PAIN GROUP R7989 OTHER SPEC 05-05-2016 [facility] ABNORMAL PHYSICIANS FINDINGS GROUP BLOOD CHEMISTRY E559 VITAMIN D 04-16-2016 [facility] DEFICIENCY [facility] UNSPECIFIED INC L93861 PAIN IN 04-16-2016 [facility] LEFT PHYSICIANS SHOULDER GROUP J0100 ACUTE 03-22-2016 [facility] MAXILLARY PHYSICIANS SINUSITIS GROUP UNSPECIFIED [id number] MUSCLE 11-28-2015 [facility] SPASM OF PHYSICIAN BACK GROUP L0390 CELLULITIS 10-20-2015 [facility] UNSPECIFIED PHYSICIAN GROUP V81188 PAIN IN 09-18-2015 [facility] G38344S CONTUSION 09-18-2015 [facility] OF LEFT PHYSICIANS, HAND PLLC INITIAL ENCOUNTER Z9571UI UNSPECIFIED 09-18-2015 [facility] W[facility]ST HAND IMAGING ASS FINGERS INITIAL D649 ANEMIA 08-25-2015 [facility] UNSPECIFIED PHYSICIANS GROUP I2510 ASHD WIYOT 08-25-2015 [facility] CORONARY PHYSICIANS ARTERY W/O GROUP ANGINA PECTORIS R001 BRADYCARDIA 08-25-2015 [facility] PHYSICIANS UNSPECIFIED GROUP E785 HYPERLIPIDE 08-13-2015 [facility] K14035 ATHEROSCLER 08-13-2015 [facility] TPLNT HRT W/O AP R002 PALPITATION 08-05-2015 [facility] S [facility] INC D509 IRON 07-30-2015 [facility] DEFICIENCY PHYSICIANS ANEMIA GROUP UNSPECIFIED I4891 UNSPECIFIED 07-30-2015 [facility] ATRIAL PHYSICIANS FIBRILLATIO GROUP N [id number] ASHD WIYOT 07-29-2015 [facility] COR ART PHYSICIANS W/UNSTABLE GROUP ANGINA PECTORIS I499 CARDIAC 07-29-2015 [facility] UNSPECIFIED SERVICE I517 CARDIOMEGAL 07-29-2015 [facility] R0602 SHORTNESS 07-29-2015 [facility] OF BREATH PHYSICIANS GROUP [id number] PERSONAL 07-29-2015 [facility] HISTORY OF [facility] P DEPENDENCE Z951 PRESENCE OF 07-29-2015 [facility] GRAFT J0190 ACUTE 06-02-2015 [facility] SINUSITIS [facility] J029 ACUTE 06-02-2015 [facility] PHARYNGITIS [facility] UNSPECIFIED R42 DIZZINESS 05-01-2015 [facility] Z23 ENCOUNTER 05-01-2015 [facility] J069 ACUTE UPPER 04-28-2015 [facility], RESPIRATORY PLLC INFECTION UNSPECIFIED R309 PAINFUL 03-12-2015 [facility] UNSPECIF[facility] I340 NONRHEUMATI 03-10-2015 [facility] INSUFFICIEN CY I361 NONRHEUMATI 03-10-2015 [facility] TRICUSPID SERV [facility] INSUFFICIEN CY I371 NONRHEUMATI 03-10-2015 [facility] PULMONARY SERV [facility] INSUFFICIEN CY I98222 PRIMARY 03-10-2015 [facility] OSTEOARTHRI [facility]ICAL TIS LEFT IMAGING ASS SHOULDER S45603 SPONDYLOSIS 03-10-2015 [facility] W/O MEDICAL MYELOPATH/R IMAGING ASS ADICULOPATH Y CERV RGN M5032 OTH CERV 03-10-2015 [facility] DISC MEDICAL DEGENERATIO IMAGING ASS N MID-CERVICA L REGION 56099 VARIANTS 12-02-2014 MERVAT COTO MIGRAINE NEC INTRACT MIGRAINE W/[place] [address] OSTEOARTHRO 12-02-2014 [facility] COTO S INVLV MX SITES BUT NOT SPEC GEN 7242 LUMBAGO 10-17-2014 [facility] COTO 2859 UNSPECIFIED 09-06-2014 [facility] INC 2449 UNSPECIFIED 09-04-2014 [facility] [place] 53374 DIAB W/O 09-04-2014 [facility] COMP TYPE PHYSICIANS II/UNS NOT LA STATED UNCNTRL 2689 UNSPECIFIED 09-04-2014 [facility] VITAMIN D PHYSICIANS DEFICIENCY LA 2724 OTHER AND 09-04-2014 [facility] UNSPECIFIED PHYSICIANS [place] HYPERLIPIDE JOSEPH 20362 OBESITY, 09-03-2014 [facility] COTO UNSPECIFIED 7224 DEGENERATIO 08-09-2014 [facility] [place] [facility] C[facility] PLC INTERVERTEB RAL DISC 42896 OSTEOARTHRO 07-30-2014 [facility] S UNSPEC MEDICAL WHETHER IMAGING ASS GEN/LOC SHLDR REGION 24058 OSTEOARTHRO 07-30-2014 [facility] SIS UNSPEC MEDICAL WHETHER IMAGING ASS GEN/LOC LOWER LEG 48105 PAIN IN 07-30-2014 [facility] JOINT, MEDICAL SHOULDER IMAGING ASS REGION 25913 PAIN IN 07-30-2014 [facility] JO[facility], MEDICAL LOWER LEG IMAGING ASS 7231 CERVICALGIA 07-30-2014 [facility] 35864 SPASM OF 06-14-2014 MERVAT NNAMDI MUSCLE 4659 ACUTE URIS 05-17-2014 DEBRAJUNI COTO OF UNSPECIFIED SITE 5589 OTH&UNSPEC 05-17-2014 DEBRAJUNI COTO NONINFECTIO US GASTROENTER ITIS&COLITI S 74663 PAIN IN 02-05-2014 [facility] MEDICAL PELVIC IMAGING ASS REGION AND THIGH 26177 INSOMNIA 02-04-2014 [facility] COTO UNSPECIFIED 22904 PAIN IN 11-02-2013 M[facility]AT COTO JOINT, ANKLE [...] GA 53 04 04 90 30 00 IN Ac BA 74 -0 -2 .0 00 L- ti PE 60 5- 8- 00 07 MA ve NT 10 20 20 48 RT IN 10 17 17 06 5 11 PH 10 AR 0 MA MG CY CA #5 PS 91 UL E MA 54 04 04 30 30 00 IN Ac AV 45 -0 -2 .0 00 [...] CY CA #5 PS 91 UL E MA 54 03 03 30 30 00 WA [...] TE 5 #5 91 MG TA B MA 00 02 03 10 5 00 WA [...] 80 2- 3- 00 07 MA ve MA 99 20 20 0 46 RT IL [...] 0 MG #5 91 TA BL ET MA 54 01 02 30 30 00 WA [...] 80 0- 3- 00 07 MA ve MA 99 20 20 40 RT IL 11 17 17 37 -H [address] AR Z MA 20 CY -2 5 #5 MG 91 TA B MA 54 12 04 19 30 WA Ac [...] TA #5 BL 91 ET GA 65 IN Ac BA 16 -0 -2 .0 00 L- ti PE 20 2- 7- 00 07 MA ve NT 10 20 20 46 RT IN 15 17 17 21 0 10 PH 10 AR 0 MA MG CY CA #5 PS 91 UL E AM 00 01 01 20 10 00 IN Ac OX 09 -0 -2 .0 00 [...] 3- 2- 00 MA 39 ER ve MA 52 20 20 RT 9 IL 00 11 11 JA -H [address] AR S Z MA K 20 CY -2 # 5 MG 10 05 TA 91 B MA 68 11 10 4 30 30 WA [...] 3- 3- 00 MA 39 ER ve MA 52 20 20 RT 9 IL 00 11 11 JA -H [address] AR S Z MA K 20 CY -2 # 5 MG 10 05 TA 91 B MA 54 11 09 4 30 30 WA [...] 3- 2- 00 MA 39 ER ve MA 99 20 20 RT 9 IL 11 11 11 JA -H [address] AR S Z MA K 20 CY -2 # 5 MG 10 05 TA 91 B MA 54 11 08 4 30 30 WA [...] Procedure DOS Code Location Performer Comment IAADIADOO 59044 [facility] INFLUENZA INC INC THERAPEUT 26071 [facility] IC 7 PHYSICIAN PHYSICIAN PROPHYLAC S GROUP S GROUP TIC/DX INJECTION SUBQ/IM SCREENING G0202 [facility] JYOTHIINEKE 7 MEDICAL MAMMOGRAP IMAGING HY RIGOBERTO ASS INCL CAD WHEN PERFORMD SCREENING 45512 [facility] TE[facility]EDA 7 [facility] MAMMOGRAP INC INC HY BI 2-VIEW BREAST INC CAD ARTHROCEN 06961 [facility] TESIS 7 PHYSICIAN ASPIR&/IN S GROUP J MAJOR JT/BURSA W/O US IAADIADOO 56941 [facility] INFLUENZA INC INC RADEX 72288 [facility] TEJEDA SHOULDER 7 [facility] COMPLETE INC INC MINIMUM 2 VIEWS BLOOD 70925 [facility] TEJEDA COUNT 7 [facility] COMPLETE INC INC AUTO&AUTO DIFRNTL WBC LIPID 83851 [facility] PANEL 7 [facility] INC INC CYANOCOBA 75786 [facility] JEOVANNY 7 [facility] VITAMIN INC INC B-12 COLLECTIO 62329 [facility] TEJED[facility] N VENOUS 7 [facility] [place] [address] I[facility] TEJEDA FREE 7 [facility] [place] [address] [facility] THYROID 7 [facility] STIMULATI INC INC NG HORMONE TSH COMPREHEN 19189 [facility] TE[facility] SIVE 7 [facility] METABOLIC INC INC PANEL RADEX 93812 [facility] TEJ[facility]A HAND 6 [facility] MINIMUM 3 INC INC VIEWS RADEX 06733 [facility] ALL HAND 2 6 MEDICAL VIEWS IMAGING ASS ECG 04096 [facility] TEJEDA ROUTINE 6 [facility] ECG INC INC W/LEAST 12 LDS TRCG ONLY W/O I&R ECG 33821 [facility] ROUTINE 6 PHYSICIAN MAT ECG S GROUP W/LEAST 12 LDS I&R ONLY BLOOD 78862 [facility] TEJEDA OCCULT 6 [facility] PEROXIDAS INC INC E ACTV QUAL FECES 1-3 SPEC BLOOD 73115 [facility] TEJEDA OCCULT 6 [facility] PEROXIDAS INC INC E ACTV QUAL FECES 1-3 SPEC BLOOD 52385 [facility] TEJEDA OCCULT 6 [facility] PEROXIDAS INC INC E ACTV QUAL FECES 1-3 SPEC BLOOD 41934 [facility] MONTOYA OCCULT 6 [facility] E ACTV QUAL FECES 1-3 SPEC ECG 52163 [facility] ROUTINE 6 PHYSICIAN MAT ECG S GROUP W/LEAST 12 LDS I&R ONLY ECG 12833 [facility] TEJEDA ROUTINE 6 [facility] ECG INC INC W/LEAST 12 LDS TRCG ONLY W/O I&R OBSERVATI 64481 [facility] ON CARE 6 PHYSICIAN JUAN DISCHARGE S GROUP MANAGEMEN T SBSQ 93013 [facility] 6 PHYSICIAN MAT CARE/DAY S GROUP 25 MINUTES CRITICAL 09421 [facility] 6 PHYSICIAN CARRIE ILL/INJUR S, PLL ED PATIENT INIT 30-74 MIN AMB A0427 [facility] SERVICE 6 AMBULANCE AMBULANCE ALS SERVICE SERVICE EMERGENCY TRANSPORT LEVEL 1 INITIAL 24767 [facility] OBSERVATI 6 PHYSICIAN JUAN ON S GROUP CARE/DAY 50 MINUTES GROUND A0425 [facility] MILEAGE 6 AMBULANCE AMBULANCE PER SERVICE SERVICE STATUTE MILE RADIOLOGI 91235 [facility] C EXAM 6 MEDICAL STEPHANIE CHEST 2 IMAGING VIEWS ASS FRONTAL&L ATERAL INITIAL 29278 [facility] 6 PHYSICIAN MAT CARE/DAY S GROUP 70 MINUTES ECG 48362 [facility] CORREA JR ROUTINE 6 [facility] W/LEAST P 12 LDS I&R ONLY SCREENING G0202 [facility] TEJEDA 6 [facility] HOSP MAMMOGRAP INC INC HY RIGOBERTO INCL CAD WHEN PERFORMD COMPUTER- 83018 [facility] TEJEDA AIDED 6 [facility]OSP DETECTION INC INC SCREENING MAMMOGRAP HY IM ADM 16235 [facility] MONTOYA PRQ ID 6 [facility] SUBQ[facility]IM [facility] NJXS EA VACCINE IIV3 22818 [facility] LINDSAY VACCINE 6 [facility] VIRUS 0.5 ML DOSAGE IM USE PCV13 29327 [facility] CASTILLOKELEIDA VACCINE 6 [facility] INTRAMUSC ULAR USE IM ADM 16607 [facility] FRFLORA PRQ ID 6 [facility] SUBQ/IM HOSPITAL NJXS 1 VACCINE URNLS DIP 91397 [facility] MONTOYA 5 [facility] STICK[facility]TAB [facility] LET RGNT NON-AUTO W/O MICRSCP ECG 64289 [facility] TEJEDA ROUTINE 5 [facility] ECG INC INC W/LEAST 12 LDS TRCG ONLY W/O I&R ECG 52718 [facility] ROUTINE 5 CULAR MAT ECG CONSULTAN W/LEAST TS O 12 LDS I&R ONLY RADEX 73396 [facility] TE[facility] SPINE 5 [facility] CERVICAL INC INC 4 OR 5 VIEWS RADEX 69765 [facility] TE[facility] SHOULDER 5 [facility] COMPLETE INC INC MINIMUM 2 VIEWS BLOOD 54485 [facility] TE[facility] COUNT 5 [facility] COMPLETE INC INC AUTO&AUTO DIFRNTL WBC LIPID 87513 [facility] PANEL 5 [facility] INC INC ECHO 37385 [place] [facility] T[facility] R-T 5 MEDICAL 2D SERV W/WOM-MOD FOUNDATIO E COMPL N SPEC&[place] [address] I[facility] TEJEDA TROPONIN 5 [facility] QUANTITAT INC INC SHIVANI DUPLEX 36381 [facility] SCAN 5 [facility] EXTRACRAN INC INC IAL ART COMPL BI STUDY 1 25 01804 [facility] DIHYDROXY 5 [facility] INCLUDES [place] [address] I[facility] TEJED[facility] THYROID 5 [facility] STIMULATI INC INC NG HORMONE TSH COLLECTIO 87614 [facility] TEJED[facility] N VENOUS 5 [facility] [place] [address] I[facility] TEJEDA FREE 5 [facility] THYROXINE INC INC CREATINE 71075 [facility] TEJEDA KINASE MB 5 [facility] [place] [address] [facility] TEJEDA FOLIC 5 [facility] ACID INC INC SERUM COMPREHEN 13490 [facility] TE[facility] SIVE 5 [facility] METABOLIC INC INC PANEL CREATINE 15182 [facility] TEJ[facility] KINASE 5 [facility] TOTAL INC INC CYANOCOBA 86308 [facility] TEJEDA JEOVANNY 5 [facility] VITAMIN INC INC B-12 RHYTHM 27584 [facility] MONTOYA ECG 1-3 5 [facility] W/INTERPR ETATION & REPORT TRANSFUSI 26858 [facility] TEJEDA ON 5 [facility] BLOOD/BLO INC INC OD COMPONENT S RED BLOOD P9016 [facility] TEJEDA CELLS 5 [facility] LEUKOCYTE INC INC S REDUCED EACH UNIT BLOOD 53432 [facility] TEJED[facility] COUNT 5 [facility] HEMATOCRI INC INC T BLOOD 52606 [facility] TEJEDA COUNT 5 [facility] HEMOGLOBI INC INC N UNCLASSIF J3490 [facility] TE[facility] IED DRUGS 5 [facility] INC INC BLOOD 57175 [facility] TEJED[facility] TYPING 5 [facility] SEROLOGIC INC INC RH (D) COMPATIBI 13469 [facility] TEJ[facility] LITY EACH 5 [facility] UNIT INC INC IMMEDIATE SPIN TECHNIQUE COMPATIBI 52140 [facility] LITY EACH 5 [facility] UNIT INC INC ANTIGLOBU FILEMON BLOOD 56239 [facility] COUNT 5 [facility] HEMOGLOBI INC INC N ANTIBODY 10800 [facility] TE[facility] SCREEN 5 [facility] RBC EACH INC INC SERUM TECHNIQUE BLOOD 55710 [facility] TYPING 5 [facility] SEROLOGIC INC INC ABO BLOOD 44999 [facility] TEJEDA COUNT 5 [facility] HEMATOCRI INC INC T COLLECTIO 49461 [facility] TEJEDA N VENOUS 5 [facility] BLOOD INC INC VENIPUNCT URE HEMOGLOBI 87076 COMBINED COMBINED N 5 PHYSICIAN PHYSICIAN GLYCOSYLA S [place] [address] COMBINED COMBINED FREE 5 PHYSICIAN PHYSICIAN THYROXINE S LA S LA 25 78829 COMBINED COMBINED HYDROXY 5 PHYSICIAN PHYSICIAN INCLUDES [place] [address] COMBINED COMBINED TRIIODOTH 5 PHYSICIAN PHYSICIAN YRONINE S LA S LA T3 TOTAL TT3 BLOOD 86193 [facility] COMBINED COUNT 5 PHYSICIAN PHYSICIAN RETICULOC S LA S LA YTE AUTOMATED LIPID 04376 [facility] COMBINED PANEL 5 PHYSICIAN PHYSICIAN S LA S LA GENERAL 56069 COMBINED COMBINED HEALTH 5 PHYSICIAN PHYSICIAN PANEL S LA S LA IRON 48157 COM[facility] COMBINED BINDING 5 PHYSICIAN PHYSICIAN CAPACITY S LA S LA RADIOLOGI 63583 [facility] TEJEDA C 5 [facility] EXAMINATI INC INC ON KNEE 3 VIEWS RADEX 22554 [facility] TEJEDA SHOULDER 5 [facility] COMPLETE INC INC MINIMUM 2 VIEWS RADEX 23360 [facility] TEJ[facility] SPINE 5 [facility] CERVICAL INC INC 4 OR 5 VIEWS INJ J0702 [facility] CROWELL BETAMETHA 5 NNAMDI NNAMDI SONE ACETATE & PHOSPHATE 3 MG RADEX 00098 I[facility]ANA HIPS 4 [facility] BILATERAL INC INC 2 VIEWS ANTEROPOS T PELVIS RADEX HIP 56167 [facility] BRAIN UNILATERA IMAGING L ASS COMPLETE MINIMUM 2 VIEWS OPHTH 09812 [facility] [place] 1 VISION ANG XM&EVAL COMPRE NEW PT 1/> VST Encounters Encounter Start End Date Code Location Performer Type Date OFFICE 26486 [facility] OUTPATIEN 7 7 [facility] T VISIT 5 INC MINUTES [facility]OS[facility] - [facility] OUTPATI[facility] INC T OFFICE 39655 [facility] OUTPATIEN 7 7 PHYSICIAN T NEW 20 S GROUP MINUTES [facility]OSPITAL [facility] - 7 7 [facility] OUTPATIEN INC T OFFICE 03815 [facility] OUTPATIEN 7 7 PHYSICIAN T VISIT S GROUP 25 MINUTES HOSPITAL [facility] - 7 7 [facility] OUTPATIEN INC T OFFICE 41937 [facility] OUTPATIEN 7 7 [facility] T VISIT 5 INC MINUTES HOSPITAL [facility] - 7 7 [facility] OUTPATIEN INC T OFFICE 87285 [facility] OUTPATIEN 7 7 PHYSICIAN T VISIT S GROUP 25 MINUTES HOSPITAL ILEANA - 7 7 [facility] OUTPATIEN INC T OFFICE 85731 [facility] OUTPATIEN 7 7 PHYSICIAN T VISIT S GROUP 25 MINUTES OFFICE 54604 [facility] OUTPATIEN 7 7 PHYSICIAN T VISIT S GROUP 15 MINUTES OFFICE 23268 [facility] OUTPATIEN 6 6 PHYSICIAN T VISIT 5 S GROUP MINUTES OFFICE 67449 [facility] OUTPATIEN 6 6 PHYSICIAN T VISIT GROUP 25 MINUTES OFFICE 81054 [facility] OUTPATIEN 6 6 PHYSICIAN T VISIT GROUP 25 MINUTES EMERGENCY 69189 [facility] PETER 6 6 PHYSICIAN U STEPHANIE [facility], [facility] T VISIT MODERATE SEVERITY EMERGENCY 38534 ILEANA 6 6 [facility] DEPARTMEN INC T VISIT LIMITED/M INOR [facility] H[facility]PITAL ILEANA - 6 6 [facility] OUTPATIEN INC [facility] ILEANA - 6 6 [facility] OUTPATIEN INC T OFFICE 09172 [facility] OUTPATIEN 6 6 PHYSICIAN MAT T VISIT S GROUP 25 MINUTES HOSPITAL ILEANA - 6 6 [facility] OUTPATIEN INC [facility] ILEANA - 6 6 [facility] OUTPATIEN INC [facility] ILEANA - 6 6 [facility] OUTPATIEN INC T OFFICE 45055 I[facility] MONTOYA OUTPATIEN 6 6 [facility] T VISIT HOSPITAL 15 MINUTES HOSPITAL I[facility]ANA - 6 6 [facility] OUTPATIEN INC T OFFICE 57539 [facility] OUTPATIEN 6 6 PHYSICIAN MAT T VISIT S GROUP 40 MINUTES HOSPITAL ILEANA - 6 6 [facility] INPATIENT INC OFFICE 86086 I[facility] LUNA OUTPATIEN 6 6 [facility] T VISIT HOSPITAL 25 MINUTES HOSPITAL ILEANA - 6 6 [facility] OUTPATIEN INC T OFFICE 16692 I[facility] MONTOYA OUTPATIEN 6 6 [facility] T VISIT HOSPITAL 15 MINUTES EMERGENCY 94191 ILEANA 6 6 [facility] DEPARTMEN INC T VISIT LOW/MODER SEVERITY EMERGENCY 07657 [facility] ARCE 6 6 PHYSICIAN FOR [facility] S, [facility] T VISIT MODERATE SEVERITY HOSPITAL ILEANA - 6 6 [facility] OUTPATIEN INC T OFFICE 84743 I[facility]ANA MONTOYA OUTPATIEN 5 5 [facility] T VISIT HOSPITAL 10 MINUTES OFFICE 81167 [facility] OUTPATIEN 5 5 CULAR MAT T NEW 60 CONSULTAN MINUTES [facility] HOSPITAL ILEANA - 5 5 [facility] OUTPATIEN INC [facility]OSP[facility] I[facility]ANA - 5 5 [facility] OUTPATIEN INC T OFFICE 98559 I[facility]ANA MONTOYA OUTPATIEN 5 5 [facility] T NEW 30 HOSPITAL MINUTES OFFICE 21489 [facility] CROWELL OUTPATIEN 5 5 NNAMDI NNAMDI T VISIT 15 MINUTES OFFICE 32405 MERVAT CROWELL OUTPATIEN 5 5 NNAMDI NNAMDI T VISIT 15 MINUTES [facility] - 5 5 [facility] - [facility] 5 [facility] T OFFICE 65325 DEBRAJUNI MERVAT CRUZ 5 5 NNAMDI NNAMDI T VISIT 15 MINUTES OFFICE 14096 [facility] TRA OUTPATIEN 5 5 [place] T NEW 30 [facility]THOPAED MINUTES [facility] ILEANA - 5 5 [facility] T OFFICE 23435 MERVAT CRUZ 5 5 NNAMDI NNAMDI T VISIT 15 MINUTES OFFICE 95332 MERVAT CRUZ 5 5 NNAMDI NNAMDI T VISIT 15 MINUTES OFFICE [id number] MERVAT CRUZ 5 5 NNAMDI NNAMDI T VISIT 15 MINUTES OFFICE 13537 MERVAT CRUZ 5 5 NNAMDI NNAMDI T VISIT 15 MINUTES [facility]LEANA - 4 4 [facility] T OFFICE 57424 MERVAT CRUZ 4 4 NNAMDI NNAMDI T VISIT 15 MINUTES OFFICE 89431 MERVTA CRUZ 4 4 NNAMDI NNAMDI T VISIT 15 MINUTES OFFICE 68621 MERVAT CRUZ 4 4 NNAMDI NNAMDI T NEW 30 MINUTES
--- OUTSIDE RECORDS SUMMARY | 2016-08-02 13:10 | External Medical Summary Rpt ---
Demographics Preferred Language Samoan Marital Status Unknown Hinduism Affiliation Unknown Race Unknown Ethnic Group Unknown Author Author , Organization [employer] Address Unknown Phone Unavailable Purpose Continuity of Care Document - through 2016 Immunization No patient found.
--- OUTSIDE RECORDS SUMMARY | 2016-08-02 13:10 | External Medical Summary Rpt ---
Demographics Preferred Language Jordanian Marital Status Unknown Voodoo Affiliation Unknown Race Unknown Ethnic Group Unknown Author Author , Organization [employer] Address Unknown Phone Unavailable Purpose Continuity of Care Document - through 2016 Immunization No patient found.
--- OUTSIDE RECORDS SUMMARY | 2016-08-02 13:10 | External Medical Summary Rpt ---
Author Author [facility], [facility] Organization [employer] Address Unknown Phone Unavailable
--- NOTE | 2016-08-02 13:26 | [facility]gent Treatment Center Report ---
History of Present Issue Date/Time Seen by Provider 08/02/16 1323 Visit Reason Pt arrived:Walked Presenting Problem:PT C/O OF SORE THROAT, HEADACHE, AND CHILLS Location if Accident: Onset of symptoms date/time:07/31/16/ or onset unknown for:MEDICAL HX UNKNOWN Have you (or family members/close friends) recently traveled outside the [place]? N If Yes, where/when: Have you had exposure to infectious disease within the past month? TB? Other? Specify: c/o sore throat starting last night. Worse at night and this morning. Slightly better right now. tylenol and ibuprofen have helped but can't recall last time taken. Denies fever, aches, chills. Intermittent headache last night w/ diarrhea once. No known sick contacts. Mild occasional cough. Nonprod. No SOA. Source patient Exam Limitations no limitations ALLERGIES Coded Allergies: No Known Allergies (07/29/15) Home Medications Active Scripts Ondansetron (Zofran Odt) 8 MG PO Q6H6 #20 Prov: 06/13/16 Reported Medications PRAVASTATIN SODIUM (Pravastatin Sodium) 40 MG PO DAILY ASPIRIN (Aspirin) 81 MG PO DAILY Amlodipine Besylate (Amlodipine) 5 MG PO DAILY #30 LISINOPRIL/HYDROCHLOROTHIAZIDE (Lisinopril-Hctz 20-25 MG Tab) 1 TAB PO BID #60 Atenolol (Tenormin) 12.5 MG PO DAILY Amiodarone Hcl (Amiodarone 200MG) 100 MG PO DAILY #60 Prednisone (Prednisone 10MG) 10 MG PO BID Gabapentin (Gabapentin 100MG) 100 MG PO BID History Medical History General CAD? No Angina: Yes CA: Yes Hypertension? Yes Hyperlipidemia? Yes CHF? No DVT? No PE? No COPD? No Asthma? No Anemia? No GERD? No Gastric ulcers? No GI Bleed? No Hernia? No Thyroid Problems? No Hypothyroidism? No CVA? No Seizures? No Diabetes? No Renal Insuffiency? No UTI? No Stones? No BPH? No GB Disease: No Nephritic Syndrome? No Asplenia? No Hepatitis? No Sickle Cell Disease? No Arthritis? No Migraines? No Cataracts? No Glaucoma? No MRSA? No HIV? No TB? No Anxiety? No Depression? No Cancer? No More? No Immunization HX DT/Tetanus UNKNOWN Flu UNKNOWN Pneumonia REFUSES Surgical Hx Previous Surgery?Y Coronary Artery Bypass X 2 Family History Family HX Diabetes No CAD No Hypertension Yes Hyperlipidemia Yes Cancer Yes TB No Social History Smoking Hx Smoker: Never Smoker Tobacco: No Packs/day N/A Alcohol Alcohol: No Review of Systems All Other Systems Reviewed and Negative Constitutional see HPI ENT see HPI. denies: ear pain, nose discharge, nose congestion, throat swelling. Respiratory see HPI Gastrointestinal denies abdominal pain, denies diarrhea Psychiatric/Neurological denies other (dizziness) Physical Exam Vital Signs Vital Signs Date Time Temp Pulse Resp B/P Pulse O2 O2 Flow FiO2 Ox Delivery Rate 08/02 1307 98.8 70 20 162/58 100 General Appearance no apparent distress, obese Ear, Nose, Throat normal ENT inspection Neck non-tender, supple Respiratory Status No: respiratory distress (no cough in clinic). Lung Sounds anterior: lungs clear. posterior: lungs clear. bilateral: lungs clear. Cardiovascular regular rate/rhythm, no peripheral edema, no murmur Neurologic alert Skin normal color, warm/dry Lymphatic no adenopathy (anterior cervical) Medical Decision Making LABS/Meds/Orders Pt receiving controlled substance in ED? No Results/Orders Orders Procedure Date/time Status [facility] STREP SCREEN 08/02 1313 Active CULTURE, THROAT 08/02 1300 Active Departure Departure Time of Disposition 1328 Disposition DC Home or Self Care(routine) Clinical Impression Primary Impression: Acute viral pharyngitis Condition STABLE Referrals Eda Jose (Family) Follow up IMMEDIATELY for new or worsening symptoms OR no noticeable improvement over the next 48-72 hours. 911 for difficulty breathing or swallowing. Patient Instructions DI for Viral Pharyngitis Additional Instructions * No sign of bacterial infection. Likely viral. Virus can take 7-14 days to run their course * Monitor Temp. Tylenol every 4 hours as needed and/or ibuprofen every 6 hours as needed (as long as your primary care doctor has told you that it is ok to take both) for fever/aches/pain. ER if fever no less than 101 despite tylenol and ibuprofen * Encourage fluids, water, gatorade, powerade, pedialyte if infant/toddler/child * warm salt water gargles * warm fluids * sore throat lozenges * sleep elevated * humidifier/vaporizer * * Your throat swab was sent for culture. Those results are typically sent to your primary care. Be sure to follow up in 2-3 days if no improvement so they can review those results and treat if necessary. If you don't have primary care, I recommend you get one but in the mean time, you will have to return to a walk in clinic. Follow up IMMEDIATELY for new or worsening symptoms OR no noticeable improvement over the next 48-72 hours. 911 for difficulty breathing or swallowing. Discharge Counseling Counseled pt/family regarding diagnosis, test results, medications/RX, home care, follow up needs at 1948
[2016-08-02 13:38] VITALS: BP 162/58
[2016-08-06] MEDS ORDERED: FLONASE 50 MCG16 GM (12:46)
== END 2016-08-02 13:39 | disposition home or self-care (01) ==
LOC: UTC 12:52
DX: J02.9 Acute pharyngitis, unspecified (principal); I10 Essential (primary) hypertension

== ENCOUNTER 2016-12-17 12:55 | Emergency (ER) | payer MEDICAID ==
[~2016-12-17] VITALS: Ht 162.6 cm; Wt 118.8 kg
[~2016-12-17 12:55] MED LIST changes: +AMOXICILLIN 50500 MG PO; +FLONASE 50 MCG16 GM
--- NOTE | 2016-12-17 13:49 | Urgent Treatment Center Report ---
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 N If Yes, where/when: Have you had exposure to infectious disease within the past month? TB? Other? Specify: Patient bent over yesterday to pick something up out of her yard when she felt something pull in her left lower back State that it felt chris like a 'pop" State that ever since she has been having pain in her lower back, States that it feels like a muscle spasm and pain is worsened when she tries to stand up or pulls herself up. Denies and pain with urination ALLERGIES Coded Allergies: No Known Allergies (07/29/15) Home Medications Active Scripts Amoxicillin Trihydrate (Amoxicillin 500MG) 500 MG PO TID #30 CAP Prov: 08/30/16 Reported Medications PRAVASTATIN SODIUM (Pravastatin Sodium) 40 MG PO DAILY ASPIRIN (Aspirin) 81 MG PO DAILY Amlodipine Besylate (Amlodipine) 5 MG PO DAILY #30 LISINOPRIL/HYDROCHLOROTHIAZIDE (Lisinopril-Hctz 20-25 MG Tab) 1 TAB PO BID #60 Atenolol (Tenormin) 12.5 MG PO DAILY Amiodarone Hcl (Amiodarone 200MG) 100 MG PO DAILY #60 Prednisone (Prednisone 10MG) 10 MG PO BID Gabapentin (Gabapentin 100MG) 100 MG PO BID History Medical History General CAD? No Angina: Yes [place]: Yes Hypertension? Yes Hyperlipidemia? Yes CHF? No DVT? No PE? No COPD? No Asthma? No Anemia? No GERD? No Gastric ulcers? No GI Bleed? No Hernia? No Thyroid Problems? No Hypothyroidism? No CVA? No Seizures? No Diabetes? No Renal Insuffiency? No UTI? No Stones? No BPH? No GB Disease: No Nephritic Syndrome? No Asplenia? No Hepatitis? No Sickle Cell Disease? No Arthritis? No Migraines? No Cataracts? No Glaucoma? No MRSA? No HIV? No TB? No Anxiety? No Depression? No Cancer? No More? No Immunization HX Ped.Immunizations UTD No DT/Tetanus UNKNOWN Flu UNKNOWN Pneumonia REFUSES Surgical Hx Previous Surgery?Y Coronary Artery Bypass X 2 Family History Family HX Diabetes No CAD No Hypertension Yes Hyperlipidemia Yes Cancer Yes TB No Social History Smoking Hx Smoker: Never Smoker Tobacco: No Packs/day N/A Alcohol Alcohol: No Review of Systems All Other Systems Reviewed and Negative Musculoskeletal back pain, muscle pain, muscle stiffness Physical Exam Vital Signs Vital Signs Date Time Temp Pulse Resp B/P Pulse O2 O2 Flow FiO2 Ox Delivery Rate 12/17 1411 18 12/17 1332 98.1 76 20 107/76 100 12/17 1309 98.6 76 18 / 100 General Appearance normal appearance, WD/WN, no apparent distress Respiratory Status Yes: trachea midline, chest symmetrical, non tender chest. No: respiratory distress. 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 No Results/Orders Current Medication Orders Sig/Shahriar Start time Last Medication Dose Route Stop Time Status Admin Ketorolac 0 .STK-MED ONE 12/17 1408 DC Tromethamine .ROUTE Orphenadrine Citrate 0 .STK-MED ONE 12/17 1408 DC .ROUTE Ketorolac 30 MG ONCE ONE 12/17 1400 DC 12/17 Tromethamine IM 12/17 1401 1411 Orphenadrine Citrate 60 MG ONCE ONE 12/17 1400 DC 12/17 IM 12/17 1401 1410 Progress UT Progress Notes Comment Patient state that she is feeling much better after injections states that she is able to move around now without much pain and difficulty Departure Departure Time of Disposition 1426 Disposition DC Home or Self Care(routine) Clinical Impression Primary Impression: Back pain Qualifiers: Back pain location: low back pain Chronicity: unspecified Back pain laterality: left Sciatica presence: without sciatica Qualified Code: M54.5 - Low back pain Condition STABLE Referrals Eda Jose APRN (Family) Patient Instructions DI for Low Back Pain, Low Back Pain Additional Instructions Take medication as prescribed Follow up with family doctor Over the counter pain medication as needed for pain Return if needed Continue to move around but no bending or heavy lifting until seen by family doctor Discharge Counseling Counseled pt/family regarding diagnosis, medications/RX, home care Prescriptions Current Visit Scripts Cyclobenzaprine Hcl (Flexeril) 10 MG PO TID #15 TAB at 1437
[2016-12-17] MEDS ORDERED: FLEXERIL10 MG PO (14:33)
[2016-12-17 14:34] VITALS: BP 107/76
[2016-12-27] MEDS ORDERED: NITROGLYCERIN0.3 MG (14:38)
== END 2016-12-17 14:39 | disposition home or self-care (01) ==
LOC: UTC 12:55
DX: M54.5 Low back pain (principal); I10 Essential (primary) hypertension; Z79.82 Long term (current) use of aspirin

== ENCOUNTER → 2017-01-24 | Emergency (ER) | payer MEDICAID ==
[~2017-01-24] VITALS: Ht 162.6 cm; Wt 117.9 kg
[~2017-01-24] MED LIST changes: +NITROGLYCERIN0.3 MG
--- OUTSIDE RECORDS SUMMARY | 2017-01-24 11:23 | External Medical Summary Rpt | CCD ---
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 Name Role Phone MERVAT COTO, MERVAT Unavailable Unavailable [facility] Unavailable Unavailable [facility], [facility] Un[facility] [place], [facility], Unavailable Unavailable [facility] Unavailable Unavailable INC, [facility] Unavailable Unavailable H[facility]PITAL, [facility] Unavailable Unavailable HOSPITAL P, [facility], Unavailable Unavailable [facility], Unavailable Unavailable [facility] Unavailable Unavailable [facility], [facility] Un[facility], [facility], Unavailable Unavailable PLL, [facility], [facility] Kee Issa MD, Unavailable Unavailable Kee Issa MD [facility] # Unavailable Unavailable [id number], [facility] # [id number] Purpose Continuity of Care Document - 10-29-2010 through 2016 Problems Code Diagnosis DOS Provider Status B070 PLANTAR 12-01-2016 [facility] WART PHYSICIANS GROUP G629 POLYNEUROPA 12-01-2016 [facility] THY PHYSICIANS UNSPECIFIED GROUP I10 ESSENTIAL 12-01-2016 [facility] PRIMARY PHYSICIANS HYPERTENSIO GROUP N R350 FREQUENCY 11-11-2016 [facility] OF PHYSICIANS MICTURITION GROUP L2389 ALLERGIC 09-08-2016 [facility] CONTACT PHYSICIANS DERMATITIS GROUP DUE TO OTHER AGENTS H6691 OTITIS 08-30-2016 [facility] UNSPECIFIED INC RIGHT EAR D631 ANEMIA IN 08-19-2016 [facility] DISEASE E559 VITAMIN D 08-19-2016 [place] [facility]NSPECIFIED [facility]OUNDATION I129 HYPERTENSIV 08-19-2016 [facility] CKD [facility] W/STAGE 1-4 FOUNDATION CKD OR UNS CKD N183 CHRONIC 08-19-2016 [facility] STAGE 3 MODERATE N289 DISORDER OF 08-12-2016 [facility] URETER [facility] UNSPECIFIED J069 ACUTE UPPER 08-06-2016 [facility] RESPIRATORY INC INFECTION UNSPECIFIED J029 ACUTE 08-02-2016 [facility]IS [facility] INC UNSPECIFIED E538 DEFICIENCY 07-06-2016 [facility] SPECIFIED B INC GROUP VITAMINS R000 TACHYCARDIA 07-06-2016 [facility] UNSPEC[facility] INC M130 POLYARTHRIT 07-05-2016 [facility] IS PHYSICIANS UNSPECIFIED GROUP M542 CERVICALGIA 07-05-2016 [facility] PH[facility] GROUP K529 NONINFECTIV 06-13-2016 [facility] GASTROENTER INC ITIS & COLITIS UNS M7541 IMPINGEMENT 06-08-2016 [facility] OF RIGHT INC SHOULDER M7542 IMPINGEMENT 06-08-2016 [facility] OF LEFT INC SHOULDER Z1231 ENCOUNTER 06-01-2016 [facility] [facility] NEOPLASM BREAST B349 VIRAL 05-07-2016 [facility] UNSPECIFIED INC [id number] PAIN IN 05-06-2016 [place] [facility] SHOULD[facility] G8929 OTHER 05-05-2016 [facility] CHRONIC PHYSICIANS PAIN GROUP R7989 OTHER SPEC 05-05-2016 [facility] ABNORMAL PHYSICIANS FINDINGS GROUP BLOOD CHEMISTRY Q70754 PAIN IN 04-16-2016 [facility] LEFT PHYSICIANS SHOULDER GROUP J0100 ACUTE 03-22-2016 [facility] MAXILLARY PHYSICIANS SINUSITIS GROUP UNSPECIFIED [id number] MUSCLE 11-28-2015 [facility] SPASM OF PHYSICIAN BACK GROUP L0390 CELLULITIS 10-20-2015 [facility] UNSPECIFIED PHYSICIAN GROUP F13982 PAIN IN 09-18-2015 [place] [facility] [id number] CONTUSION 09-18-2015 [facility] OF LEFT PHYSICIANS, HAND PLLC INITIAL ENCOUNTER L7113ZI UNSPECIFIED 09-18-2015 [place] INJURY LT MEDICAL WRIST HAND IMAGING ASS FINGERS INITIAL D649 ANEMIA 08-25-2015 [facility] UNSPECIFIED PHYSICIANS GROUP I2510 ASHD YUHAAVIATAM 08-25-2015 [facility] CORONARY PHYSICIANS ARTERY W/O GROUP ANGINA PECTORIS R001 BRADYCARDIA 08-25-2015 [facility] PHYSICIANS UNSPECIFIED GROUP E785 HYPERLIPIDE 08-13-2015 [facility] [id number] ATHEROSCLER 08-13-2015 [facility] BP GRAFT [facility] TPLNT HRT W/O AP R002 PALPITATION 08-05-2015 [facility] D509 IRON 07-30-2015 [facility] DEFICIENCY PHYSICIANS ANEMIA GROUP UNSPECIFIED I4891 UNSPECIFIED 07-30-2015 [facility] ATRIAL PHYSICIANS FIBRILLATIO GROUP N L56022 ASHD YUHAAVIATAM 07-29-2015 [facility] COR ART PHYSICIANS W/UNSTABLE GROUP ANGINA PECTORIS I499 CARDIAC 07-29-2015 [facility] UNSPECIFIED SERVICE I517 CARDIOMEGAL 07-29-2015 [facility] MEDICAL IMAGING ASS R0602 SHORTNESS 07-29-2015 [facility] OF BREATH PHYSICIANS GROUP R32646 PERSONAL 07-29-2015 [facility] P DEPENDENCE Z951 PRESENCE OF 07-29-2015 [facility] [place] GRAFT J0190 ACUTE 06-02-2015 [facility] SINUSITIS [facility] R42 DIZZINESS 05-01-2015 [facility] Z23 ENCOUNTER 05-01-2015 [facility] N R309 PAINFUL 03-12-2015 [facility] UNSPECIFIED I340 NONRHEUMATI 03-10-2015 [facility]AL SERV VALVE [facility] INSUFFICIEN CY I361 NONRHEUMATI 03-10-2015 [facility] TRICUSPID SERV VALVE [facility]OUNDATION INSUFFICIEN CY I371 NONRHEUMATI 03-10-2015 [facility] PULMONARY SERV VALVE [facility] INSUFFICIEN CY P41370 PRIMARY 03-10-2015 [place] OSTEOARTHRI MEDICAL TIS LEFT IMAGING ASS SHOULDER N72972 SPONDYLOSIS 03-10-2015 [place] W/O MEDICAL MYELOPATH/R IMAGING ASS ADICULOPATH Y CERV RGN M5032 OTH CERV 03-10-2015 [place] DISC MEDICAL DEGENERATIO IMAGING ASS N MID-CERVICA L REGION 09450 VARIANTS 12-02-2014 [facility] C[facility] MIGRAINE NEC INTRACT MIGRAINE W/[place] SM [address]197 OSTEOARTHRO 12-02-2014 [facility] Su INVLV MX SITES BUT NOT SPEC GEN 7242 LUMBAGO 10-17-2014 [facility] C[facility] 2859 UNSPECIFIED 09-06-2014 [facility] 2449 UNSPECIFIED 09-04-2014 [facility] HYPOTHYROID [place] ISM 59488 DIAB W/O 09-04-2014 [facility] COMP TYPE PHYSICIANS II/UNS NOT LA STATED UNCNTRL 2689 UNSPECIFIED 09-04-2014 [facility] VITAMIN D PHYSICIANS DEFICIENCY [place] 2724 OTHER AND 09-04-2014 [facility] UNSPECIFIED PHYSICIANS [place] HYPERLIPIDE JOSEPH 61376 OBESITY, 09-03-2014 [facility] UNSPECIFIED 7224 DEGENERATIO 08-09-2014 [facility] [place] [facility] INTERVERTEB RAL DISC 09562 OSTEOARTHRO 07-30-2014 [place] S UNSPEC MEDICAL WHETHER IMAGING ASS GEN/LOC SHLDR REGION 32978 OSTEOARTHRO 07-30-2014 [place] SIS UNSPEC MEDICAL WHETHER IMAGING ASS GEN/LOC LOWER LEG 17961 PAIN IN 07-30-2014 [place] [facility], MEDICAL SHOULDER IMAGING ASS REGION 49806 PAIN IN 07-30-2014 [place] [facility], MEDICAL LOWER LEG IMAGING ASS 7231 CERVICALGIA 07-30-2014 [facility] 35501 SPASM OF 06-14-2014 [facility] MUSCLE 4659 ACUTE URIS 05-17-2014 [facility] OF UNSPECIFIED SITE 5589 OTH&UNSPEC 05-17-2014 [facility] NONINFECTIO US GASTROENTER ITIS&COLITI S 03196 PAIN IN 02-05-2014 [place] [facility] MEDICAL PELVIC IMAGING ASS REGION AND THIGH 21064 INSOMNIA 02-04-2014 [facility] UNSPECIFIED 39987 PAIN IN 11-02-2013 [facility] JOINT, ANKLE AND FOOT 4011 ESSENTIAL 07-23-2013 [facility] HYPERTENSIO N, BENIGN 3674 PRESBYOPIA 11-20-2010 [facility] [id number] Coronary [place] artery [facility] bypass [facility] grafts x 2 272.4 Hyperlipide [facility] 280.9 Microcytic [facility] Allergies, Adverse Reactions, Alerts Type Allergy to substance Adverse Reaction to Substance Substance Reaction Severity NO KNOWN ALLERGIES Unknown Unknown Medications Na ND Rx Da Fi Fi Am Da Di Ph RX Ph St me C No te ll ll ou ys ag ar # ys at rm s nt no ma ic us Or Da si cy ia de te s n re d TN 54 10 11 30 30 00 WA Ac AV 45 -0 -0 .0 00 L- ti 80 6- 3- 00 07 MA ve TA 92 20 20 51 RT TI 51 17 17 40 N 6 84 PH SO AR DI MA UM CY 40 #5 91 MG TA B AM 68 10 11 30 30 00 WA Ac IO 38 -1 -0 .0 00 L- ti DA 20 0- 3- 00 07 MA ve RO 22 20 20 47 RT NE 71 17 17 37 4 45 PH HC AR L MA 20 CY 0 MG #5 91 TA BL ET TN 00 10 11 10 5 00 MT Ac ED 14 -1 -0 .0 00 L- ti NI 39 1- 3- 00 07 MA ve SO 73 20 20 51 RT NE 80 17 17 48 5 54 PH 20 AR MA MG CY TA #5 BL 91 ET NI 43 09 10 4. 30 00 MT Ac TR 47 -2 -2 09 00 L- ti OG 80 9- 7- 9 07 MA ve LY 41 20 20 51 RT CE 00 17 17 27 RI 3 24 PH N AR 40 MA 0 CY MC G #5 SP 91 RA Y AM 67 09 10 90 90 00 MT Ac LO 87 -2 -2 .0 00 L- ti DI 70 9- 7- 00 07 MA ve PI 19 20 20 51 RT NE 80 17 17 27 5 26 PH BE AR SY MA LA CY TE 5 #5 91 MG TA B CY 68 09 10 15 5 00 MT Ac CL 64 -2 -2 .0 00 L- ti OB 50 9- 7- 00 07 MA ve EN 51 20 20 51 RT ZA 89 17 17 27 TN 0 04 PH IN AR E MA 10 CY MG #5 91 TA BL ET GA 65 09 10 60 30 00 MT Ac BA 16 -2 -2 .0 00 L- ti PE 20 6- 0- 00 04 MA ve NT 10 20 20 53 RT IN 25 17 17 20 0 94 PH 30 AR 0 MA MG CY CA #5 PS 91 UL E TN 54 09 09 30 30 00 MT Ac AV 45 -0 -2 .0 00 L- ti 80 5- 9- 00 07 MA ve TA 92 20 20 50 RT TI 51 17 17 76 N 6 16 PH SO AR DI MA UM CY 40 #5 91 MG TA B CE 68 08 09 20 10 00 MT Ac PH 18 -2 -2 .0 00 L- ti AL 00 4- 2- 00 07 MA ve EX 12 20 20 50 RT IN 20 17 17 58 2 34 PH 50 AR 0 MA MG CY CA #5 PS 91 UL E GA 53 08 09 60 30 00 MT Ac BA 74 -2 -2 .0 00 L- ti PE 60 4- 2- 00 04 MA ve NT 10 20 20 53 RT IN 20 17 17 18 5 12 PH 30 AR 0 MA MG CY CA #5 PS 91 UL E EQ 49 08 09 90 90 00 WA Ac 03 -2 -2 .0 00 L- ti 50 5- 2- 00 08 MA ve PI 56 20 20 84 RT RI 33 17 17 08 N 2 30 PH EC AR MA 81 CY MG #5 91 TA BL ET AM 68 08 09 30 30 00 WA Ac IO 38 -1 -0 .0 00 L- ti DA 20 1- 8- 00 07 MA ve RO 22 20 20 50 RT NE 71 17 17 34 4 72 PH HC AR L MA 20 CY 0 MG #5 91 TA BL ET TN 54 08 08 30 30 00 WA Ac AV 45 -0 -2 .0 00 L- ti 80 1- 5- 00 07 MA ve TA 92 20 20 50 RT TI 51 17 17 18 N 6 20 PH SO AR DI MA UM CY 40 #5 91 MG TA B LE 00 07 08 90 90 00 WA Ac VO 78 -2 -1 .0 00 L- ti TH 15 5- 8- 00 07 MA ve YR 18 20 20 50 RT OX 09 17 17 05 IN 2 07 PH E AR 25 MA CY MC G #5 TA 91 BL ET TN 54 07 07 30 30 00 WA Ac AV 45 -0 -2 .0 00 L- ti 80 3- 8- 00 07 MA ve TA 92 20 20 46 RT TI 51 17 17 73 N 6 23 PH SO AR DI MA UM CY 40 #5 91 MG TA B LI 54 06 07 18 90 00 WA Ac SI 45 -3 -2 0. 00 L- ti NO 80 0- 8- 00 07 MA ve TN 99 20 20 0 47 RT IL 11 17 17 37 -H [address] AR Z MA 20 CY -2 5 #5 MG 91 TA B AM 00 06 07 90 90 00 WA Ac LO 37 -3 -2 .0 00 L- ti DI 85 0- 8- 00 07 MA ve PI 20 20 20 48 RT NE 90 17 17 26 5 78 PH BE AR SY MA LA CY TE 5 #5 91 MG TA B TR 45 06 07 15 7 00 WA Ac IA 80 -2 -2 .0 00 L- ti MC 20 2- 1- 00 07 MA ve IN 06 20 20 49 RT OL 33 17 17 47 ON 5 38 PH E AR 0. MA 02 CY 5% #5 CR 91 EA M AM 00 06 07 30 10 00 WA Ac OX 09 -1 -0 .0 00 L- ti IC 33 2- 7- 00 07 MA ve IL 10 20 20 49 RT LI 90 17 17 29 N 5 90 PH 50 AR 0 MA MG CY CA #5 PS 91 UL E GA 53 06 07 90 30 00 WA Ac BA 74 -1 -0 .0 00 L- ti PE 60 4- 7- 00 07 MA ve NT 10 20 20 49 RT IN 10 17 17 34 5 97 PH 10 AR 0 MA MG CY CA #5 PS 91 UL E TN 54 06 06 30 30 00 WA Ac AV 45 -0 -3 .0 00 L- ti 80 1- 0- 00 07 MA ve TA 92 20 20 48 RT TI 51 17 17 26 N 6 76 PH SO AR DI MA UM CY 40 #5 91 MG TA B AM 00 06 06 30 30 00 WA Ac LO 37 -0 -3 .0 00 L- ti DI 85 1- 0- 00 07 MA ve PI 20 20 20 42 RT NE 90 17 17 34 5 98 PH BE AR SY MA LA CY TE 5 #5 91 MG TA B 00 05 06 90 90 00 MT Ac PI 53 -2 -1 .0 00 L- ti RI 61 4- 6- 00 08 MA ve N 00 20 20 83 RT EC 41 17 17 90 0 49 PH 81 AR MA MG CY TA #5 BL 91 ET FL 60 05 06 16 30 00 MT Ac UT 43 -1 -1 .0 00 L- ti IC 20 9- 6- 00 07 MA ve 26 20 20 48 RT ON 41 17 17 88 E 5 96 PH TN AR OP MA CY 50 #5 MC 91 G SP RA Y TN 54 05 06 30 30 00 MT Ac AV 45 -0 -0 .0 00 L- ti 80 5- 2- 00 07 MA ve TA 92 20 20 48 RT TI 51 17 17 26 N 0 76 PH SO AR DI MA UM CY 40 #5 91 MG TA B GA 53 05 05 90 30 00 WA Ac BA 74 -0 -2 .0 00 L- ti PE 60 3- 6- 00 07 MA ve NT 10 20 20 48 RT IN 10 17 17 26 5 81 PH 10 AR 0 MA MG CY CA #5 PS 91 UL E LE 00 04 05 90 90 00 WA Ac VO 78 -2 -2 .0 00 L- ti TH 15 7- 6- 00 07 MA ve YR 18 20 20 48 RT OX 09 17 17 48 IN 2 86 PH E AR 25 MA CY MC G #5 TA 91 BL ET GA 53 04 04 90 30 00 WA Ac BA 74 -0 -2 .0 00 L- ti PE 60 5- 8- 00 07 MA ve NT 10 20 20 48 RT IN 10 17 17 06 5 11 PH 10 AR 0 MA MG CY CA #5 PS 91 UL E ## 10 04 10 5 00 WA Ac ## -1 -2 .0 00 L- ti ## 6- 8- 00 08 MA ve ## 20 20 83 RT ## 16 17 66 # 01 PH AR MA CY #5 91 TN 54 04 04 30 30 00 [...] CY MG #5 TA 91 BL ET AM 00 03 03 90 90 00 WA Ac LO 37 -0 -2 .0 00 L- ti DI 85 1- 4- 00 07 MA ve PI 20 20 20 47 RT NE 90 17 17 37 5 47 PH BE AR SY MA LA CY TE 5 #5 91 MG TA B GA 53 03 03 90 30 00 [...] MA CY TA BL #5 ET 91 TN 00 02 03 10 5 00 [...] UA L #5 0. 91 4 MG 00 02 30 30 00 WA Ac [...] BL #5 ET 91 AM 68 01 02 30 30 00 WA Ac IO 38 -2 -2 .0 00 L- ti DA 20 7- 4- 00 07 MA ve RO 22 20 20 46 RT NE 71 17 17 73 4 22 PH HC AR L MA 20 CY 0 MG #5 91 TA BL ET TN 54 03 22 29 30 00 WA Ac AV 45 -2 -2 .0 00 L- ti 80 7- 4- 00 07 MA ve TA 92 20 20 46 RT TI 51 17 17 73 N 0 23 PH SO AR DI MA UM CY 40 #5 91 MG TA B AM 00 03 22 29 30 WA Ac LO 37 -2 -2 .0 00 L- ti DI 85 7- 4- 00 07 MA ve PI 20 20 20 46 RT NE 90 17 17 73 5 18 PH BE AR SY MA LA CY TE 5 #5 91 MG TA B LI 54 03 22 59 30 00 MT Ac SI 45 -1 -0 .0 00 L- ti NO 80 0- 3- 00 07 MA ve TN 99 20 20 40 RT IL 11 17 17 37 -H [address] AR Z MA 20 CY -2 5 #5 MG 91 TA B TN 54 12 04 19 30 WA Ac [...] TA B 00 03 21 29 30 WA Ac PI 53 -0 -2 .0 [...] MG Ac ti Ta ve bl et LI 68 06 10 3 30 30 WA 71 CR Ac SI 18 -2 -2 .0 L- 24 AG ti NO 00 3- 2- 00 MA 39 ER ve TN 52 20 20 RT 9 IL 00 11 11 JA -H [address] AR S Z MA K 20 CY -2 # 5 MG 10 05 TA 91 B AT 00 06 10 3 30 30 WA 71 CR Ac EN 37 -2 -2 .0 L- 24 AG ti OL 80 3- 2- 00 MA 39 ER ve OL 23 20 20 RT 8 10 11 11 JA 50 1 PH ME AR S MG MA K CY TA # BL ET 10 TN 68 11 10 4 30 30 WA 71 CR Ac AV 46 -0 -1 .0 L- 26 AG ti 20 5- 1- 00 MA 16 ER ve TA 19 20 20 RT 8 TI 79 10 11 JA N 0 PH ME SO AR S DI MA K UM CY # 40 10 MG 05 91 TA B LI 68 06 09 3 30 30 WA 71 CR Ac SI 18 -2 -2 .0 L- 24 AG ti NO 00 3- 3- 00 MA 39 ER ve TN 52 20 20 RT 9 IL 00 11 11 JA -H [address] AR S Z MA K 20 CY -2 # 5 MG 10 05 TA 91 B AT 00 06 09 3 30 30 WA 71 CR Ac EN 37 -2 -2 .0 L- 24 AG ti OL 80 3- 3- 00 MA 39 ER ve OL 23 20 20 RT 8 10 11 11 JA 50 1 PH ME AR S MG MA K CY TA # BL ET 10 05 91 TN 54 11 09 4 30 30 [...] 40 10 MG 05 91 TA B Vital Signs 11-29-2012 16:05 Name Value Interpretat [...] Order Detail nces retati t Range on Hemoglobin A1c in Blood (12-01-2016 11:04) Hemoglo 5.5 % 0.0% Normal complet bin A1c 017 - ed in 11:04 7.0% Blood Protein [Presence] in Urine (08-12-2016 12:01) Protein 05-25-2 13.0 0.0mg High complet 017 /dL - ed [Presen 12:01 11.9m ce] in g/dL Urine Urinalysis dipstick W Reflex Microscopic panel in Urine (08-12-2016 12:01) Bacteri 08-12-2 1+ O complet a 017 ed [Presen 12:01 ce] in Urine sedimen t by Light microsc opy Mucus 08-12-2 OCC OCC complet [Presen 017 ed ce] in 12:01 Urine sedimen t by Light microsc opy Erythro 08-12-2 OCC 0 complet cytes 017 ed [Presen 12:01 ce] in Urine sedimen t by Light microsc opy Epithel 08-12-2 5-10 0#/hp complet ial 017 f - ed cells.s 12:01 5#/hp quamous f [Presen ce] in Urine sedimen t by Microsc opy high power field Urinalysis dipstick W Reflex Microscopic panel in Urine (08-12-2016 12:01) Appeara CLEAR CLEAR complet nce of 017 ed Urine 12:01 Bilirub NEGATIV NEG complet in 017 E ed [Presen 12:01 ce] in Urine by Test strip Erythro 08-12-2 2+ NEG Abnorma complet cytes 017 l ed [Presen 12:01 ce] in Urine Color 2 YELLOW YELLOW complet of 017 ed Urine 12:01 Ketones 08-12-2 NEGATIV NEG complet 017 E ed [Presen 12:01 ce] in Urine by Automat ed test strip Mucus 08-12-2 NEGATIV NEG complet [Presen 017 E ed ce] in 12:01 Urine sedimen t by Light microsc opy Nitrite 08-12-2 NEGATIV NEG complet 017 E ed [Presen 12:01 ce] in Urine by Test strip Urobili 25-2 0.2 NEG complet nogen 017 ed [Presen 12:01 ce] in Urine by Test strip Streptococcus pyogenes Ag [Presence] in Unspecified specimen (08-02-2016 13:00) Strepto 08-02-2 NEGATIV complet coccus 017 E ed pyogene 13:00 s Ag [Presen ce] in Unspeci fied specime n Retics/100 RBC Fr Auto (11-29-2012 06:51) Retics/ [...] complet Qn 013 ed Auto 05:00 MEAN 09-11-2 30.9 31.8-35 complet CORPUSC 013 g/dl .4 ed ULAR 05:00 HGB CONC RDW RBC 17.9 % 11.5-17 complet Auto 013 .5 ed 05:00 Platele 298 142-424 complet t Bld 013 K/mm3 ed Ql 05:00 Manual MEAN 8.1 fl 7.4-10. complet PLATELE 013 4 ed T 05:00 VOLUME Granulo 74.4 % 37.0-80 complet cytes 013 .0 ed Fr Bld 05:00 Auto LYMPH % 17.1 % 10-50.0 complet 013 ed 05:00 Monocyt 11-29- 7.2 % 1.7-9.3 complet es Fr 013 ed Bld 05:00 Auto Eosinop 11-29-2 1.0 % 0.1-12. complet hil Fr 013 0 ed Bld 05:00 Auto Basophi 11-29-2 0.3 % 0.1-2.0 complet ls Fr 013 ed Bld 05:00 Auto Granulo 11-29-2 7.8 1.8-7.8 complet cytes # 013 K/mm3 ed Bld 05:00 Auto Lymphoc 11-29-2 1.8 0.7-4.5 complet ytes Fr 013 K/mm3 ed Bld 05:00 Auto Monocyt 11-29-2 0.8 0.1-1.0 complet es # 013 K/mm3 ed Bld 05:00 Auto Eosinop 11-29-2 0.1 0.0-0.4 complet hil # 013 K/mm3 [...] 013 .0 alert ed 15:15 MCV RBC 76.3 fl 82.2-97 complet 013 .8 ed 15:15 MCH RBC 22.0 pg 27-31.2 complet Qn 013 ed Auto 15:15 MEAN 28.8 31.8-35 complet CORPUSC 013 g/dl .4 ed ULAR 15:15 HGB CONC RDW RBC 16.7 % 11.5-17 complet Auto 013 .5 ed 15:15 Platele 363 142-424 complet t Bld 013 K/mm3 ed Ql 15:15 Manual MEAN 7.3 fl 7.4-10. complet PLATELE 013 4 ed T 15:15 VOLUME Granulo 11-28-2 63.5 % 37.0-80 complet cytes 013 .0 ed Fr Bld 15:15 Auto LYMPH % 10-2 26.6 % 10-50.0 complet 013 ed 15:15 Monocyt 11-28-2 6.9 % 1.7-9.3 complet es Fr 013 ed Bld 15:15 Auto Eosinop -10-2 2.5 % 0.1-12. complet hil Fr 013 0 ed Bld 15:15 Auto Basophi -10-2 0.5 % 0.1-2.0 complet ls Fr 013 ed Bld 15:15 Auto Granulo -10-2 6.0 1.8-7.8 complet cytes # 013 K/mm3 ed Bld 15:15 Auto Lymphoc -10-2 2.5 0.7-4.5 complet ytes Fr 013 K/mm3 ed Bld 15:15 Auto Monocyt -10-2 0.7 0.1-1.0 complet es # 013 K/mm3 ed Bld 15:15 Auto Eosinop -10-2 0.2 0.0-0.4 complet hil # 013 K/mm3 ed Bld 15:15 Auto Basophi 09-10-2 0.0 0-0.2 complet ls # 013 K/MM3 ed Bld 15:15 Auto Procedures Procedure DOS Code Location Performer Comment PACKED 99.04 Kee Issa MD TRANSFUSI ON Encounters Encounter Start End Date Code Location Performer Type Date [facility] - [facility] - 7 [facility] - 7 7 [facility] - 7 7 [facility] - 7 7 [facility] - 7 7 [facility] - 6 6 [facility] - 6 6 [facility] - 6 6 [facility] - 6 6 [facility] - 6 6 [facility] - 6 6 [facility] - 6 6 [facility]PAT[facility] - 6 6 [facility] - 6 6 [facility] - 5 5 [facility] - 5 5 [facility] Phong Issa MD (IN) 3 16:14 3 16:10 [facility]
--- OUTSIDE RECORDS SUMMARY | 2017-01-24 11:23 | External Medical Summary Rpt | CCD ---
Author Author , EMY QUEVEDO Address Unknown Phone [email or web address] Digital Care Team Providers Care Business Architect Name Role Phone MERVAT COTO, MERVAT Unavailable Unavailable NNAMDI [facility] Unavailable Unavailable SERVICE, [facility] [place] Un[facility] Un[facility] Un[place], [facility], Unavailable Unavailable [facility] Unavailable Unavailable INC, [facility] Unavailable Unavailable HOSPITAL, [facility] Unavailable Unavailable HOSPITAL P, [facility], Unavailable Unavailable [facility], [facility]available Unavailable [facility] Unavailable Unavailable [facility], [facility] Un[facility] Un[facility], [facility], Unavailable Unavailable PLL, [facility], [facility] Kee Issa MD, Unavailable Unavailable Kee Issa MD [facility] # Unavailable Unavailable [id number], [facility] # [id number] Purpose Continuity of Care Document - 10-29-2010 through 2016 Problems Code Diagnosis DOS Provider Status B070 PLANTAR 12-01-2016 [facility]ART [facility] G629 POLYNEUROPA 12-01-2016 [facility] THY [facility]YS[facility]ANS UNSPECIFIED GROUP I10 ESSENTIAL 12-01-2016 [facility] PRIMARY [facility] HYPERTENSIO GROUP N R350 FREQUENCY 11-11-2016 [facility] OF [facility] MICTURITION GROUP L2389 ALLERGIC 09-08-2016 [facility] CON[facility]CT [facility] DERMATITIS GROUP DUE TO OTHER AGENTS H6691 OTITIS 08-30-2016 [facility] UNSPECIFIED INC RIGHT EAR D631 ANEMIA IN 08-19-2016 [facility] DISEASE E559 VITAMIN D 08-19-2016 [place] [facility] DEFICIENCY SERV UNSPECIFIED FOUNDATION I129 HYPERTENSIV 08-19-2016 [facility] CKD SERV W/STAGE 1-4 FOUNDATION CKD OR UNS CKD N183 CHRONIC 08-19-2016 [facility] DISEASE [facility] STAGE 3 [...] MEM HOSP UNSPECIFIED INC M130 POLYARTHRIT 07-05-2016 [facility] IS [facility]YS[facility]ANS UNSPECIFIED GROUP M542 CERVICALGIA 07-05-2016 [facility] K529 NONINFECTIV 06-13-2016 [facility] GASTROENTER INC ITIS & COLITIS UNS M7541 IMPINGEMENT 06-08-2016 [facility]OME [facility] OF RIGHT INC SHOULDER M7542 IMPINGEMENT 06-08-2016 [facility] OF LEFT INC SHOULDER Z1231 ENCOUNTER 06-01-2016 [place] [facility] MALIG [facility] NEOPLASM BREAST B349 VIRAL 05-07-2016 [facility] INFECTION [facility] UNSPECIFIED INC L28511 PAIN IN 05-06-2016 [place] RIGHT [facility]ICAL SHOULDER [facility]ING [facility] G8929 OTHER 05-05-2016 [facility] CHRONIC [facility]YS[facility]IANS PAIN GROUP R7989 OTHER SPEC 05-05-2016 [facility] ABNORMAL PHYS[facility]ANS FINDINGS GROUP BLOOD CHEMISTRY O48588 PAIN IN 04-16-2016 [facility] LEFT [facility]YSICIANS SHOULDER GROUP J0100 ACUTE 03-22-2016 [facility] MAXILLARY PHYSICIANS SINUSITIS GROUP UNSPECIFIED J31064 MUSCLE 11-28-2015 [facility] SPASM OF PHYSICIAN BACK GROUP L0390 CELLULITIS 10-20-2015 [facility] UNSPECIFIED PHYSICIAN GROUP S27219 PAIN IN 09-18-2015 [place] [facility] [id number] CONTUSION 09-18-2015 [facility] OF LEFT PHYSICIANS, HAND PLLC INITIAL ENCOUNTER N6384EE UNSPECIFIED 09-18-2015 [place] INJURY LT MEDICAL WRIST HAND IMAGING ASS FINGERS INITIAL D649 ANEMIA 08-25-2015 [facility] UNSPECIFIED PHYSICIANS GROUP I2510 ASHD NAVAJO 08-25-2015 [facility] CORONARY PHYSICIANS ARTERY W/O GROUP ANGINA PECTORIS R001 BRADYCARDIA 08-25-2015 [facility] UNSPECIFIED GROUP E785 HYPERLIPIDE 08-13-2015 [facility] D06105 ATHEROSCLER 08-13-2015 [facility] BP GRAFT [facility] TPLNT HRT W/O AP R002 PALPITATION 08-05-2015 [facility] INC D509 IRON 07-30-2015 [facility] DEFICIENCY PHYSICIANS ANEMIA GROUP UNSPECIFIED I4891 UNSPECIFIED 07-30-2015 [facility] ATRIAL PHYSICIANS FIBRILLATIO GROUP N G75814 ASHD NAVAJO 07-29-2015 [facility] COR ART PHYSICIANS W/UNSTABLE GROUP ANGINA PECTORIS I499 CARDIAC 07-29-2015 [facility] UNSPECIFIED SERVICE I517 CARDIOMEGAL 07-29-2015 [facility] MEDICAL IMAGING ASS R0602 SHORTNESS 07-29-2015 [facility] OF BREATH PHYSICIANS GROUP Q00412 PERSONAL 07-29-2015 [facility] P DEPENDENCE Z951 PRESENCE OF 07-29-2015 [facility] [place] GRAFT J0190 ACUTE 06-02-2015 [facility] SINUSITIS [facility] R42 DIZZINESS 05-01-2015 [facility] AND [facility] Z23 ENCOUNTER 05-01-2015 [facility] N R309 PAINFUL 03-12-2015 [facility] UNSPECIFIED I340 NONRHEUMATI 03-10-2015 [facility] MITRAL SERV VALVE FOUNDATION INSUFFICIEN CY I361 NONRHEUMATI 03-10-2015 [facility] TRICUSPID SERV VALVE FOUNDATION INSUFFICIEN CY I371 NONRHEUMATI 03-10-2015 [facility] PULMONARY SERV VALVE FOUNDATION INSUFFICIEN CY A49163 PRIMARY 03-10-2015 [place] OSTEOARTHRI MEDICAL TIS LEFT IMAGING ASS SHOULDER A86680 SPONDYLOSIS 03-10-2015 [place] W/O MEDICAL MYELOPATH/R IMAGING ASS ADICULOPATH Y CERV RGN M5032 OTH CERV 03-10-2015 [place] DISC MEDICAL DEGENERATIO IMAGING ASS N MID-CERVICA L REGION 13555 VARIANTS 12-02-2014 MERVAT COTO MIGRAINE NEC INTRACT MIGRAINE W/[place] [address] OSTEOARTHRO 12-02-2014 M[facility] Su INVLV MX SITES BUT NOT SPEC GEN 7242 LUMBAGO 10-17-2014 M[facility] COTO 2859 UNSPECIFIED 09-06-2014 [facility] 2449 UNSPECIFIED 09-04-2014 [facility] HYPOTHYROID [place] ISM 42879 DIAB W/O 09-04-2014 [facility] COMP TYPE PHYSICIANS II/UNS NOT LA STATED UNCNTRL 2689 UNSPECIFIED 09-04-2014 [facility] VITAMIN D PHYSICIANS DEFICIENCY [place] 2724 OTHER AND 09-04-2014 [facility] UNSPECIFIED PHYSICIANS [place] HYPERLIPIDE JOSEPH 78776 OBESITY, 09-03-2014 ARNJ[facility]I N[facility]I UNSPECIFIED 7224 DEGENERATIO 08-09-2014 [facility] [place] [facility] CERV[facility] S PLC INTERVERTEB RAL DISC 84172 OSTEOARTHRO 07-30-2014 [place] S UNSPEC MEDICAL WHETHER IMAGING ASS GEN/LOC SHLDR REGION 44191 OSTEOARTHRO 07-30-2014 [place] SIS UNSPEC MEDICAL WHETHER IMAGING ASS GEN/LOC LOWER LEG 21306 PAIN IN 07-30-2014 [place] JOINT, MEDICAL SHOULDER IMAGING ASS REGION 20191 PAIN IN 07-30-2014 [place] [facility]INT, MEDICAL LOWER LEG IMAGING ASS 7231 CERVICALGIA 07-30-2014 [facility] 25396 SPASM OF 06-14-2014 M[facility] COTO MUSCLE 4659 ACUTE URIS 05-17-2014 M[facility]AT NNAMDI OF UNSPECIFIED SITE 5589 OTH&UNSPEC 05-17-2014 [facility] COTO NONINFECTIO US GASTROENTER ITIS&COLITI S 54570 PAIN IN 02-05-2014 [place] [facility] MEDICAL PELVIC IMAGING ASS REGION AND THIGH 29825 INSOMNIA 02-04-2014 MERVAT NNAMDI UNSPECIFIED 03198 PAIN IN 11-02-2013 M[facility]AT NNAMDI JOINT, ANKLE AND FOOT 4011 ESSENTIAL 07-23-2013 M[facility] COTO HYPERTENSIO N, BENIGN 3674 PRESBYOPIA 11-20-2010 [facility] [id number] Coronary Maljamar artery [facility] bypass [facility] grafts x 2 272.4 Hyperlipide [facility] 280.9 Microcytic [facility] Allergies, Adverse Reactions, Alerts Type Allergy [...] ia de te s n re d IN 54 10 11 30 30 00 WA [...] 0 MG #5 91 TA BL ET IN 00 10 11 10 5 00 MI Ac ED 14 -1 -0 .0 00 L- ti NI 39 1- 3- 00 07 MA ve SO 73 20 20 51 RT NE 80 17 17 48 5 54 PH 20 AR MA MG CY TA #5 BL 91 ET NI 43 09 10 4. 30 00 MI Ac TR 47 -2 -2 09 00 L- ti OG 80 9- 7- 9 07 MA ve LY 41 20 20 51 RT CE 00 17 17 27 RI 3 24 PH N AR 40 MA 0 CY MC G #5 SP 91 RA Y AM 67 09 10 90 90 00 MI Ac LO 87 -2 -2 .0 00 L- ti DI 70 9- 7- 00 07 MA ve PI 19 20 20 51 RT NE 80 17 17 27 5 26 PH BE AR SY MA LA CY TE 5 #5 91 MG TA B CY 68 09 10 15 5 00 MI Ac CL 64 -2 -2 .0 00 L- ti OB 50 9- 7- 00 07 MA ve EN 51 20 20 51 RT ZA 89 17 17 27 IN 0 04 PH IN AR E MA 10 CY MG #5 91 TA BL ET GA 65 09 10 60 30 00 MI Ac BA 16 -2 -2 .0 00 L- ti PE 20 6- 0- 00 04 MA ve NT 10 20 20 53 RT IN 25 17 17 20 0 94 PH 30 AR 0 MA MG CY CA #5 PS 91 UL E IN 54 09 09 30 30 00 MI Ac AV 45 -0 -2 .0 00 L- ti 80 5- 9- 00 07 MA ve TA 92 20 20 50 RT TI 51 17 17 76 N 6 16 PH SO AR DI MA UM CY 40 #5 91 MG TA B CE 68 08 09 20 10 00 MI Ac PH 18 -2 -2 .0 00 L- ti AL 00 4- 2- 00 07 MA ve EX 12 20 20 50 RT IN 20 17 17 58 2 34 PH 50 AR 0 MA MG CY CA #5 PS 91 UL E GA 53 08 09 60 30 00 MI Ac BA 74 -2 -2 .0 00 [...] 0 MG #5 91 TA BL ET IN 54 08 08 30 30 00 WA [...] MC G #5 TA 91 BL ET IN 54 07 07 30 30 00 WA [...] 80 0- 8- 00 07 MA ve IN 99 20 20 0 47 RT IL [...] CY CA #5 PS 91 UL E IN 54 06 06 30 30 00 WA [...] B 00 05 06 90 90 00 MI Ac PI 53 -2 -1 .0 00 L- ti RI 61 4- 6- 00 08 MA ve N 00 20 20 83 RT EC 41 17 17 90 0 49 PH 81 AR MA MG CY TA #5 BL 91 ET FL 60 05 06 16 30 00 MI Ac UT 43 -1 -1 .0 00 L- ti IC 20 9- 6- 00 07 MA ve 26 20 20 48 RT ON 41 17 17 88 E 5 96 PH IN AR OP MA CY 50 #5 MC 91 G SP RA Y IN 54 05 06 30 30 00 MI Ac AV 45 -0 -0 .0 00 [...] 01 PH AR MA CY #5 91 IN 54 04 04 30 30 00 WA [...] CY CA #5 PS 91 UL E IN 54 03 03 30 30 00 WA [...] MA CY TA BL #5 ET 91 IN 00 02 03 10 5 00 WA [...] 80 2- 3- 00 07 MA ve IN 99 20 20 0 46 RT IL [...] 0 MG #5 91 TA BL ET IN 54 03 22 29 30 00 WA [...] LI 54 03 22 59 30 00 MI Ac SI 45 -1 -0 .0 00 L- ti NO 80 0- 3- 00 07 MA ve IN 99 20 20 40 RT IL 11 17 17 37 -H [address] AR Z MA 20 CY -2 5 #5 MG 91 TA B IN 54 12 04 19 30 WA Ac [...] 3- 2- 00 MA 39 ER ve IN 52 20 20 RT 9 IL 00 [...] K CY TA # BL ET 10 IN 68 11 10 4 30 30 WA [...] 3- 3- 00 MA 39 ER ve IN 52 20 20 RT 9 IL 00 [...] TA # BL ET 10 05 91 IN 54 11 09 4 30 30 WA [...] 3- 2- 00 MA 39 ER ve IN 99 20 20 RT 9 IL 11 11 11 JA -H [address] AR S Z MA K 20 CY -2 # 5 MG 10 05 TA 91 B IN 54 11 08 4 30 30 WA [...] Type Date [facility] [address] [facility] [facility] Phong Issa MD (IN) 3 16:14 3 16:10 [facility]
--- OUTSIDE RECORDS SUMMARY | 2017-01-24 11:27 | External Medical Summary Rpt | CCD ---
Author Author , EMY QUEVEDO Address Unknown Phone [email or web address] Care Team Providers Care Personal Computer Network Analyst Name Role Phone MERVAT COTO, MERVAT Unavailable Unavailable [facility] Unavailable Unavailable SERVICE, [facility] Unavailable [facility]available [place], [facility], Unavailable Unavailable [facility] Unavailable Unavailable [facility], [facility] Unavailable Un[facility], Unavailable Unavailable [facility], [facility]available Unavailable [facility] Un[facility], [facility] Un[facility]available [facility], [facility] # Unavailable Unavailable [id number], [facility] # [id number] Purpose Continuity of Care Document - 10-29-2010 through 2016 Problems Code Diagnosis DOS Provider Status B070 PLANTAR 12-01-2016 [facility] G629 POLYNEUROPA 12-01-2016 [facility] THY [facility] UNSPECIFIED GROUP I10 ESSENTIAL 12-01-2016 [facility] HYPERTENSIO GROUP N R350 FREQUENCY 11-11-2016 [facility] MICTURITION [facility] L2389 ALLERGIC 09-08-2016 [facility] DERMATITIS GROUP DUE TO OTHER AGENTS H6691 OTITIS 08-30-2016 [facility] UNSPECIFIED [facility] RIGHT EAR D631 ANEMIA IN 08-19-2016 [facility] DISEASE E559 VITAMIN D 08-19-2016 [facility] I129 HYPERTENSIV 08-19-2016 [facility] W/STAGE 1-4 [facility] CKD OR UNS CKD N183 CHRONIC 08-19-2016 [facility] STAGE 3 MODERATE N289 DISORDER OF 08-12-2016 [facility] URETER [facility] UNSPECIFIED J069 ACUTE UPPER 08-06-2016 [facility] RESPIRATORY [facility] INFECTION UNSPECIFIED J029 ACUTE 08-02-2016 [facility] PHARYNG[facility]IS [facility] INC UNSPECIFIED E538 DEFICIENCY 07-06-2016 [facility] OTHER [facility] SPECIFIED B INC GROUP VITAMINS R000 TACHYCARDIA 07-06-2016 [facility] UNSPEC[facility]IED INC M130 POLYARTHRIT 07-05-2016 [facility] U[facility]PEC[facility] GROUP M542 CERVICALGIA 07-05-2016 [facility] K529 NONINFECTIV 06-13-2016 [facility] GASTROENTER INC ITIS & COLITIS UNS M7541 IMPINGEMENT 06-08-2016 [facility]OME [facility] OF RIGHT INC SHOULDER M7542 IMPINGEMENT 06-08-2016 [facility] OF LEFT INC SHOULDER Z1231 ENCOUNTER 06-01-2016 [facility]IG [facility] NEOPLASM BREAST B349 VIRAL 05-07-2016 [facility] IN[facility]CTION [facility] UNSPECIFIED INC F67972 PAIN IN 05-06-2016 [facility] SHOULD[facility] G8929 OTHER 05-05-2016 [facility]RON[facility] PAIN GROUP R7989 OTHER SPEC 05-05-2016 [facility] ABNORMAL [facility] FINDINGS GROUP BLOOD CHEMISTRY O33234 PAIN IN 04-16-2016 [facility] LEFT [facility] SHOULDER GROUP J0100 ACUTE 03-22-2016 [facility] MAXILLARY [facility] SINUSITIS GROUP UNSPECIFIED S49932 MUSCLE 11-28-2015 [facility] SPASM OF PHYSICIAN BACK GROUP L0390 CELLULITIS 10-20-2015 [facility] UNSPECIFIED [facility]ICIAN GROUP R57705 PAIN IN 09-18-2015 [facility] [id number] CONTUSION 09-18-2015 [facility] LEFT PHYSICIANS, HAND PLLC INITIAL ENCOUNTER [id number] UNSPECIFIED 09-18-2015 [place] INJURY LT MEDICAL WRIST HAND IMAGING ASS FINGERS INITIAL D649 ANEMIA 08-25-2015 [facility] UNSPECIFIED [facility]ICIANS GROUP I2510 ASHD NUNAPITCHUK 08-25-2015 [facility] CORONARY [facility]YS[facility] ARTERY W/O GROUP ANGINA PECTORIS R001 BRADYCARDIA 08-25-2015 [facility] UNSPECIFIED GROUP E785 HYPERLIPIDE 08-13-2015 [facility] E66767 ATHEROSCLER 08-13-2015 [facility] TPLNT HRT W/O AP R002 PALPITATION 08-05-2015 [facility] INC D509 IRON 07-30-2015 [facility] DEFICIENCY PHYSICIANS ANEMIA GROUP UNSPECIFIED I4891 UNSPECIFIED 07-30-2015 [facility] ATRIAL [facility] FIBRILLATIO GROUP N T34170 ASHD NUNAPITCHUK 07-29-2015 [facility] COR ART PHYSICIANS W/UNSTABLE GROUP ANGINA PECTORIS I499 CARDIAC 07-29-2015 [facility] UNSPECIFIED SERVICE I517 CARDIOMEGAL 07-29-2015 [facility] R0602 SHORTNESS 07-29-2015 [facility] OF BREATH PHYSICIANS GROUP M56367 PERSONAL 07-29-2015 [facility] P DEPENDENCE Z951 PRESENCE OF 07-29-2015 [facility] [place] GRAFT J0190 ACUTE 06-02-2015 [facility]INUSITIS [facility] R42 DIZZINESS 05-01-2015 [facility] Z23 ENCOUNTER 05-01-2015 [facility] N R309 PAINFUL 03-12-2015 [facility] UNSPEC[facility] I340 NONRHEUMATI 03-10-2015 [facility] INSUFFICIEN CY I361 NONRHEUMATI 03-10-2015 [facility] TRICUSPID SERV VALVE [facility] INSUFFICIEN CY I371 NONRHEUMATI 03-10-2015 [facility] PULMONARY SERV [facility]VE [facility] INSUFFICIEN CY E75193 PRIMARY 03-10-2015 [facility] OSTEOARTHRI [facility]ICAL TIS LEFT IMAGING ASS SHOULDER T44372 SPONDYLOSIS 03-10-2015 [place] W/O MEDICAL MYELOPATH/R IMAGING ASS ADICULOPATH Y CERV RGN M5032 OTH CERV 03-10-2015 [facility] DISC MEDICAL DEGENERATIO IMAGING ASS N MID-CERVICA L REGION 21155 VARIANTS 12-02-2014 [facility] COTO MIGRAINE NEC INTRACT MIGRAINE W/[place] [address] OSTEOARTHRO 12-02-2014 [facility] COTO S INVLV MX SITES BUT NOT SPEC GEN 7242 LUMBAGO 10-17-2014 [facility] 2859 UNSPECIFIED 09-06-2014 [facility] 2449 UNSPECIFIED 09-04-2014 [facility] HYPOTHYROID [place] ISM 39736 DIAB W/O 09-04-2014 [facility] COMP TYPE PHYSICIANS II/UNS NOT LA STATED UNCNTRL 2689 UNSPECIFIED 09-04-2014 [facility] VITAMIN D PHYSICIANS DEFICIENCY [place] 2724 OTHER AND 09-04-2014 [facility] UNSPECIFIED PHYSICIANS [place] HYPERLIPIDE JOSEPH 10650 OBESITY, 09-03-2014 [facility] UNSPECIFIED 7224 DEGENERATIO 08-09-2014 [facility] [place] [facility] INTERVERTEB RAL DISC 34037 OSTEOARTHRO 07-30-2014 [place] S UNSPEC MEDICAL WHETHER IMAGING ASS GEN/LOC SHLDR REGION 89075 OSTEOARTHRO 07-30-2014 [place] SIS UNSPEC MEDICAL WHETHER IMAGING ASS GEN/LOC LOWER LEG 52463 PAIN IN 07-30-2014 [place] JOINT, MEDICAL SHOULDER IMAGING ASS REGION 32387 PAIN IN 07-30-2014 [place] [facility], MEDICAL LOWER LEG IMAGING ASS 7231 CERVICALGIA 07-30-2014 [facility] 76568 SPASM OF 06-14-2014 [facility] NNAMDI MUSCLE 4659 ACUTE URIS 05-17-2014 [facility] NNA[facility]I OF UNSPECIFIED SITE 5589 OTH&UNSPEC 05-17-2014 [facility] NONINFECTIO US GASTROENTER ITIS&COLITI S 95267 PAIN IN 02-05-2014 [place] JOINT MEDICAL PELVIC IMAGING ASS REGION AND THIGH 83628 INSOMNIA 02-04-2014 [facility] UNSPECIFIED 93259 PAIN IN 11-02-2013 [facility] COTO JOINT, ANKLE [...] ia de te s n re d OK 00 10 11 10 5 00 WA Ac ED 14 -1 -0 .0 00 L- ti NI 39 1- 3- 00 07 MA ve SO 73 20 20 51 RT NE 80 17 17 48 5 54 PH 20 AR MA MG CY TA #5 BL 91 ET OK 54 10 11 30 30 00 WA [...] 0 MG #5 91 TA BL ET CY 68 09 10 15 5 00 WA Ac CL 64 -2 -2 .0 00 L- ti OB 50 9- 7- 00 07 MA ve EN 51 20 20 51 RT ZA 89 17 17 27 OK 0 04 PH IN AR E MA 10 CY MG #5 91 TA BL ET NI 43 09 10 4. 30 [...] 5 #5 91 MG TA B GA 65 09 10 60 30 00 MI Ac BA 16 -2 -2 .0 00 L- ti PE 20 6- 0- 00 04 MA ve NT 10 20 20 53 RT IN 25 17 17 20 0 94 PH 30 AR 0 MA MG CY CA #5 PS 91 UL E OK 54 09 09 30 30 00 [facility] AV 45 -0 -2 .0 00 L- ti 80 5- 9- 00 07 MA ve TA 92 20 20 50 RT TI 51 17 17 76 N 6 16 PH SO AR DI MA UM CY 40 #5 91 MG TA B EQ 49 08 09 90 90 00 MI Ac 03 -2 -2 .0 00 L- ti 50 5- 2- 00 08 MA ve PI 56 20 20 84 RT RI 33 17 17 08 N 2 30 PH EC AR MA 81 CY MG #5 91 TA BL ET CE 68 08 09 20 10 00 [...] CA #5 PS 91 UL E AM 68 08 09 30 30 00 MI Ac IO 38 -1 -0 .0 00 L- ti DA 20 1- 8- 00 07 MA ve RO 22 20 20 50 RT NE 71 17 17 34 4 72 PH HC AR L MA 20 CY 0 MG #5 91 TA BL ET OK 54 08 08 30 30 00 WA [...] MC G #5 TA 91 BL ET OK 54 07 07 30 30 00 WA [...] 80 0- 8- 00 07 MA ve OK 99 20 20 0 47 RT IL [...] CY CA #5 PS 91 UL E OK 54 06 06 30 30 00 WA Ac AV 45 -0 -3 .0 00 L- ti 80 1- 0- 00 07 MA ve TA 92 20 20 48 RT TI 51 17 17 26 N 6 76 PH SO AR DI MA UM CY 40 #5 91 MG TA B AM 00 06 30 30 00 WA Ac LO 37 -0 -3 .0 00 L- ti DI 85 1- 0- 00 07 MA ve PI 20 20 20 42 RT NE 90 17 17 34 5 98 PH BE AR SY MA LA CY TE 5 #5 91 MG TA B 00 07 24 89 90 00 WA Ac PI 53 -2 -1 .0 00 L- ti RI 61 4- 6- 00 08 MA ve N 00 20 20 83 RT EC 41 17 17 90 0 49 PH 81 AR MA MG CY TA #5 BL 91 ET FL 60 05 16 30 00 WA Ac UT 43 -1 -1 .0 00 L- ti IC 20 9- 6- 00 07 MA ve 26 20 20 48 RT ON 41 17 17 88 E 5 96 PH OK AR OP MA CY 50 #5 MC 91 G SP RA Y OK 54 05 09 17 30 00 MI Ac AV 45 -0 -0 .0 00 L- ti 80 5- 2- 00 07 MA ve TA 92 20 20 48 RT TI 51 17 17 26 N 0 76 PH SO AR DI MA UM CY 40 #5 91 MG TA B LE 00 04 90 00 MI Ac VO 78 -2 -2 .0 00 L- ti TH 15 7- 6- 00 07 MA ve YR 18 20 20 48 RT OX 09 17 17 48 IN 2 86 PH E AR 25 MA CY MC G #5 TA 91 BL ET GA 53 05 05 90 30 00 WA Ac BA 74 -0 -2 .0 00 L- ti PE 60 3- 6- 00 07 MA ve NT 10 20 20 48 RT IN 10 17 17 26 5 81 PH 10 AR 0 MA MG CY CA #5 PS 91 UL E OK 54 04 04 30 30 00 WA [...] CY CA #5 PS 91 UL E ON 57 03 04 15 25 00 [...] CY CA #5 PS 91 UL E OK 54 03 03 30 30 00 WA Ac AV 45 -0 -2 .0 00 L- ti 80 1- 4- 07 MA ve TA 92 20 20 47 RT TI 51 17 17 37 N 0 44 PH SO AR DI MA UM CY 40 #5 91 MG TA B 00 03 90 00 WA Ac PI 53 -0 -2 .0 00 L- ti RI 61 1- 4- 00 08 MA ve N 00 20 20 83 RT EC 41 17 17 82 0 97 PH 81 AR MA MG CY TA #5 BL 91 ET AM 68 03 30 30 00 WA Ac IO [...] #5 ET 91 AM 00 03 90 00 WA Ac LO 37 -0 -2 .0 00 L- ti DI 85 1- 4- 00 07 MA ve PI 20 20 20 47 RT NE 90 17 17 37 5 47 PH BE AR SY MA LA CY TE 5 #5 91 MG TA B OK 00 02 03 10 5 00 WA [...] 80 2- 3- 00 07 MA ve OK 99 20 20 0 46 RT IL [...] #5 PS 91 UL E AT 00 02 30 30 00 WA Ac EN [...] 0 MG #5 91 TA BL ET OK 54 01 02 30 30 00 WA Ac AV 45 -2 -2 .0 00 L- ti 80 7- 4- 00 07 MA ve TA 92 20 20 46 RT TI 51 17 17 73 N 0 23 PH SO AR DI MA UM CY 40 #5 91 MG TA B LI 54 01 02 30 00 WA Ac SI 45 -1 -0 .0 00 L- ti NO 80 0- 3- 00 07 MA ve OK 99 20 20 40 RT IL 11 17 17 37 -H [address] AR Z MA 20 CY -2 5 #5 MG 91 TA B OK 54 12 30 30 00 WA Ac AV 45 -3 [...] GA 65 03 21 29 30 00 MI Ac BA 16 -0 -2 .0 00 [...] 3- 2- 00 MA 39 ER ve OK 52 20 20 RT 9 IL 00 11 11 JA -H [address] AR S Z MA K 20 CY -2 # 5 MG 10 05 TA 91 B OK 68 11 10 4 30 30 WA [...] K CY TA # BL ET 10 91 LI 68 06 09 3 30 30 MI 71 CR Ac SI 18 -2 -2 .0 L- 24 AG ti NO 00 3- 3- 00 MA 39 ER ve OK 52 20 20 RT 9 IL 00 11 11 JA -H [address] AR S Z MA K 20 CY -2 # 5 MG 10 05 TA 91 B OK 54 11 09 4 30 30 MI 71 CR Ac AV 45 -0 -0 [...] 3- 2- 00 MA 39 ER ve OK 99 20 20 RT 9 IL 11 11 11 JA -H [address] AR S Z MA K 20 CY -2 # 5 MG 10 05 TA 91 B OK 54 11 08 4 30 30 WA 71 CR Ac AV 45 -0 -1 .0 L- 26 AG ti 80 5- 1- 00 MA 16 ER ve TA 92 20 20 RT 8 TI 51 10 11 JA N 0 PH ME SO AR S DI MA K UM CY # 40 10 MG 05 91 TA B Encounters Encounter Start End Date Code Location Performer Type Date [facility] [...] [facility] - 6 6 [facility] - 6 [facility] - 5 5 [facility] - 5 5 [facility] - 5 5 [facility] - 5 5 [facility] - 5 5 [facility] - 4 4 [facility]
--- OUTSIDE RECORDS SUMMARY | 2017-01-24 11:27 | External Medical Summary Rpt | CCD ---
Author Author , EMY QUEVEDO Address Unknown Phone Care Team Providers Care Joint Supervisor Name Role Phone MERVAT COTO, MERVAT Unavailable Unavailable [facility] Unavailable Unavailable SERVICE, [facility] Unavailable [facility] Un[facility] [place]available [place], [facility], Unavailable Unavailable [facility] Un[facility] Unavailable [facility], [facility] Unavailable [facility]available HOSPITAL, [facility] Unavailable Unavailable HOSPITAL P, [facility], Unavailable Unavailable [facility], Unavailable Unavailable [facility], [facility] Un[facility]available [facility], [facility] # Unavailable Unavailable [id number], [facility] # [id number] Purpose Continuity of Care Document - 10-29-2010 through 2016 Problems Code Diagnosis DOS Provider Status B070 PLANTAR 12-01-2016 [facility] WART PHYSICIANS GROUP G629 POLYNEUROPA 12-01-2016 [facility] THY PHYSICIANS UNSPECIFIED GROUP I10 ESSENTIAL 12-01-2016 [facility] PRIMARY PHYSICIANS HYPERTENSIO GROUP N R350 FREQUENCY 11-11-2016 [facility] OF PHYSICIANS MICTURITION GROUP L2389 ALLERGIC 09-08-2016 [facility] CONTACT PHYSICIANS DERMATITIS GROUP DUE TO OTHER AGENTS H6691 OTITIS 08-30-2016 [facility] UNSPECIFIED INC RIGHT EAR D631 ANEMIA IN 08-19-2016 [facility] DISEASE E559 VITAMIN D 08-19-2016 [facility] UNSPECIFIED FOUNDATION I129 HYPERTENSIV 08-19-2016 [facility] CKD [facility] W/STAGE 1-4 FOUNDATION CKD OR UNS CKD N183 CHRONIC 08-19-2016 [facility] DISEASE [facility] STAGE 3 [...] MEM HOSP UNSPECIFIED INC M130 POLYARTHRIT 07-05-2016 [facility] IS PHYSICIANS UNSPECIFIED GROUP M542 CERVICALGIA 07-05-2016 [facility] K529 NONINFECTIV 06-13-2016 [facility] GASTROENTER INC ITIS & COLITIS UNS M7541 IMPINGEMENT 06-08-2016 [facility] OF RIGHT INC SHOULDER M7542 IMPINGEMENT 06-08-2016 [facility] OF LEFT INC SHOULDER Z1231 ENCOUNTER 06-01-2016 [facility] NEOPLASM BREAST B349 VIRAL 05-07-2016 [facility] INFECTION [facility] UNSPECIFIED INC Z27288 PAIN IN 05-06-2016 [facility] SHOULDER [facility] G8929 OTHER 05-05-2016 [facility] CHRONIC PHYSICIANS PAIN GROUP R7989 OTHER SPEC 05-05-2016 [facility] ABNORMAL PHYSICIANS FINDINGS GROUP BLOOD CHEMISTRY Z56224 PAIN IN 04-16-2016 [facility] LEFT PHYSICIANS SHOULDER GROUP J0100 ACUTE 03-22-2016 [facility] MAXILLARY PHYSICIANS SINUSITIS GROUP UNSPECIFIED M01904 MUSCLE 11-28-2015 [facility] SPASM OF PHYSICIAN BACK GROUP L0390 CELLULITIS 10-20-2015 [facility] UNSPECIFIED PHYSICIAN GROUP P91295 PAIN IN 09-18-2015 [facility] [id number] CONTUSION 09-18-2015 [facility] OF LEFT PHYSICIANS, HAND PLLC INITIAL ENCOUNTER [id number] UNSPECIFIED 09-18-2015 [facility] INJURY LT MEDICAL WRIST HAND IMAGING [facility] FINGERS INITIAL D649 ANEMIA 08-25-2015 [facility] UNSPECIFIED PHYSICIANS GROUP I2510 ASHD [place] 08-25-2015 [facility] CORONARY PHYSICIANS ARTERY W/O GROUP ANGINA PECTORIS R001 BRADYCARDIA 08-25-2015 [facility] PHYSICIANS UNSPECIFIED GROUP E785 HYPERLIPIDE 08-13-2015 [facility] O93232 ATHEROSCLER 08-13-2015 [facility] TPLNT HRT W/O AP R002 PALPITATION 08-05-2015 [facility] INC D509 IRON 07-30-2015 [facility] DEFICIENCY PHYSICIANS ANEMIA GROUP UNSPECIFIED I4891 UNSPECIFIED 07-30-2015 [facility] ATRIAL PHYSICIANS FIBRILLATIO GROUP N O01995 ASHD [place] 07-29-2015 [facility] COR ART PHYSICIANS W/UNSTABLE GROUP ANGINA PECTORIS I499 CARDIAC 07-29-2015 [facility] UNSPECIFIED SERVICE I517 CARDIOMEGAL 07-29-2015 [facility] R0602 SHORTNESS 07-29-2015 [facility] OF BREATH PHYSICIANS GROUP A69883 PERSONAL 07-29-2015 [place] HISTORY OF [facility] P DEPENDENCE Z951 PRESENCE OF 07-29-2015 [facility] RY [place] GRAFT J0190 ACUTE 06-02-2015 [place] SINUSITIS [facility] HOSPITAL R42 DIZZINESS 05-01-2015 [place] [facility] G[facility] CARMEL Z23 ENCOUNTER 05-01-2015 [place] [facility] N R309 PAINFUL 03-12-2015 [place] [facility] UNSPECIFIED I340 NONRHEUMATI 03-10-2015 [facility] MITRAL SERV [facility] INSUFFICIEN CY I361 NONRHEUMATI 03-10-2015 [facility] TRICUSPID SERV VALVE [facility]OUNDATION INSUFFICIEN CY I371 NONRHEUMATI 03-10-2015 [facility] PULMONARY SERV VALVE [facility]OUND[facility] INSUFFICIEN CY W34998 PRIMARY 03-10-2015 [place] OSTEOARTHRI MEDICAL TIS LEFT IMAGING ASS SHOULDER B69846 SPONDYLOSIS 03-10-2015 [place] W/O MEDICAL MYELOPATH/R IMAGING ASS ADICULOPATH Y CERV RGN M5032 OTH CERV 03-10-2015 [facility] DISC MEDICAL DEGENERATIO IMAGING ASS N MID-CERVICA L REGION 75384 VARIANTS 12-02-2014 MERVAT COTO MIGRAINE NEC INTRACT MIGRAINE W/[place] [address] OSTEOARTHRO 12-02-2014 [facility] COTO S INVLV MX SITES BUT NOT SPEC GEN 7242 LUMBAGO 10-17-2014 [facility] COTO 2859 UNSPECIFIED 09-06-2014 [facility] 2449 UNSPECIFIED 09-04-2014 [facility] [place] 83201 DIAB W/O 09-04-2014 [facility] COMP TYPE PHYSICIANS II/UNS NOT LA STATED UNCNTRL 2689 UNSPECIFIED 09-04-2014 [facility] VITAMIN D PHYSICIANS DEFICIENCY [place] 2724 OTHER AND 09-04-2014 [facility] UNSPECIFIED PHYSICIANS [place] HYPERLIPIDE JOSEPH 47046 OBESITY, 09-03-2014 [facility] UNSPECIFIED 7224 DEGENERATIO 08-09-2014 [facility] INTERVERTEB RAL DISC 40475 OSTEOARTHRO 07-30-2014 [facility] UNSPEC MEDICAL WHETHER IMAGING ASS GEN/LOC SHLDR REGION 58589 OSTEOARTHRO 07-30-2014 [place] SIS UNSPEC MEDICAL WHETHER IMAGING ASS GEN/LOC LOWER LEG 66789 PAIN IN 07-30-2014 [place] [facility], MEDICAL SHOULDER IMAGING ASS REGION 30561 PAIN IN 07-30-2014 [place] [facility], MEDICAL LOWER LEG IMAGING ASS 7231 CERVICALGIA 07-30-2014 [facility] 65275 SPASM OF 06-14-2014 [facility] NNAMDI MUSCLE 4659 ACUTE URIS 05-17-2014 [facility] NNAMDI OF UNSPECIFIED SITE 5589 OTH&UNSPEC 05-17-2014 [facility] NONINFECTIO US GASTROENTER ITIS&COLITI S 78827 PAIN IN 02-05-2014 [place] MEDICAL PELVIC IMAGING ASS REGION AND THIGH 11253 INSOMNIA 02-04-2014 DEBRAJUNI N[facility]I UNSPECIFIED 84512 PAIN IN 11-02-2013 [facility] COTO JOINT, ANKLE [...] ia de te s n re d VT 00 10 11 10 5 00 WA Ac ED 14 -1 -0 .0 00 L- ti NI 39 1- 3- 00 07 MA ve SO 73 20 20 51 RT NE 80 17 17 48 5 54 PH 20 AR MA MG CY TA #5 BL 91 ET VT 54 10 11 30 30 00 WA [...] 51 RT ZA 89 17 17 27 VT 0 04 PH IN AR E MA 10 CY MG #5 91 TA BL ET NI 43 09 10 4. 30 00 OR Ac TR 47 -2 -2 09 00 L- ti OG 80 9- 7- 9 07 MA ve LY 41 20 20 51 RT CE 00 17 17 27 RI 3 24 PH N AR 40 MA 0 CY MC G #5 SP 91 RA Y AM 67 09 10 90 90 00 OR Ac LO 87 -2 -2 .0 00 L- ti DI 70 9- 7- 00 07 MA ve PI 19 20 20 51 RT NE 80 17 17 27 5 26 PH BE AR SY MA LA CY TE 5 #5 91 MG TA B GA 65 09 10 60 30 00 OR Ac BA 16 -2 -2 .0 00 L- ti PE 20 6- 0- 00 04 MA ve NT 10 20 20 53 RT IN 25 17 17 20 0 94 PH 30 AR 0 MA MG CY CA #5 PS 91 UL E VT 54 09 09 30 30 00 [facility] AV 45 -0 -2 .0 00 L- ti 80 5- 9- 00 07 MA ve TA 92 20 20 50 RT TI 51 17 17 76 N 6 16 PH SO AR DI MA UM CY 40 #5 91 MG TA B EQ 49 08 09 90 90 00 OR Ac 03 -2 -2 .0 00 L- ti 50 5- 2- 00 08 MA ve PI 56 20 20 84 RT RI 33 17 17 08 N 2 30 PH EC AR MA 81 CY MG #5 91 TA BL ET CE 68 08 09 20 10 00 OR Ac PH 18 -2 -2 .0 00 L- ti AL 00 4- 2- 00 07 MA ve EX 12 20 20 50 RT IN 20 17 17 58 2 34 PH 50 AR 0 MA MG CY CA #5 PS 91 UL E GA 53 08 09 60 30 00 OR Ac BA 74 -2 -2 .0 00 L- ti PE 60 4- 2- 00 04 MA ve NT 10 20 20 53 RT IN 20 17 17 18 5 12 PH 30 AR 0 MA MG CY CA #5 PS 91 UL E AM 68 08 09 30 30 00 OR Ac IO 38 -1 -0 .0 00 L- ti DA 20 1- 8- 00 07 MA ve RO 22 20 20 50 RT NE 71 17 17 34 4 72 PH HC AR L MA 20 CY 0 MG #5 91 TA BL ET VT 54 08 08 30 30 00 WA [...] MC G #5 TA 91 BL ET VT 54 07 07 30 30 00 WA [...] 80 0- 8- 00 07 MA ve VT 99 20 20 0 47 RT IL [...] CY CA #5 PS 91 UL E VT 54 06 06 30 30 00 WA [...] 17 17 88 E 5 96 PH VT AR OP MA CY 50 #5 MC 91 G SP RA Y VT 54 05 09 17 30 00 OR Ac AV 45 -0 -0 .0 00 L- ti 80 5- 2- 00 07 MA ve TA 92 20 20 48 RT TI 51 17 17 26 N 0 76 PH SO AR DI MA UM CY 40 #5 91 MG TA B LE 00 04 90 00 OR Ac VO 78 -2 -2 .0 00 [...] CY CA #5 PS 91 UL E VT 54 04 04 30 30 00 WA [...] CY CA #5 PS 91 UL E VT 54 03 03 30 30 00 WA [...] TE 5 #5 91 MG TA B VT 00 02 03 10 5 00 WA [...] 80 2- 3- 00 07 MA ve VT 99 20 20 0 46 RT IL [...] 0 MG #5 91 TA BL ET VT 54 01 02 30 30 00 WA [...] 80 0- 3- 00 07 MA ve VT 99 20 20 40 RT IL 11 17 17 37 -H [address] AR Z MA 20 CY -2 5 #5 MG 91 TA B VT 54 12 30 30 00 WA Ac [...] GA 65 03 21 29 30 00 OR Ac BA 16 -0 -2 .0 00 [...] 3- 2- 00 MA 39 ER ve VT 52 20 20 RT 9 IL 00 11 11 JA -H [address] AR S Z MA K 20 CY -2 # 5 MG 10 05 TA 91 B VT 68 11 10 4 30 30 WA [...] LI 68 06 09 3 30 30 OR 71 CR Ac SI 18 -2 -2 .0 L- 24 AG ti NO 00 3- 3- 00 MA 39 ER ve VT 52 20 20 RT 9 IL 00 11 11 JA -H [address] AR S Z MA K 20 CY -2 # 5 MG 10 05 TA 91 B VT 54 11 09 4 30 30 OR 71 CR Ac AV 45 -0 -0 [...] 3- 2- 00 MA 39 ER ve VT 99 20 20 RT 9 IL 11 11 11 JA -H [address] AR S Z MA K 20 CY -2 # 5 MG 10 05 TA 91 B VT 54 11 08 4 30 30 WA [...] - 7 7 [facility] - 7 7 [facility] - 7 7 [facility] - 7 7 [facility] - 7 7 [facility] - 7 7 [facility] - 7 7 [facility] - 7 7 [facility] - 7 7 [facility] - 7 7 [facility] - 7 7 [facility] - 7 7 [facility] - 6 6 [facility] - 6 6 [facility] - 6 6 [facility] - 6 6 [facility] - 6 6 [facility] - 6 6 [facility] - 6 6 [facility]PAT[facility] - 6 6 [facility] - 6 6 [facility] - 5 5 [facility] - 5 5 [facility] - 5 5 [facility] - 5 5 [facility] - 5 5 [facility] - 4 4 [facility]
--- OUTSIDE RECORDS SUMMARY | 2017-01-24 11:28 | External Medical Summary Rpt ---
Author Author EMY Branham, [facility] Organization [facility] [employer] Address Unknown Phone Unavailable Results Comprehensive metabolic 2000 panel in Serum or Plasma Observa Value Referen Units Interpr Notes Date tion ce etation Range Albumin/G 1.1 - 1.8 No Normal No Sep 13 lobulin informati informati 2017 [Mass on in on in 11:04 AM ratio] in source source Serum or data data Plasma Albumin 3.4 - 5.0 gm/dL Normal No Sep 13 [Mass/vol informati 2017 ume] in on in 11:04 AM Serum or source Plasma data Alkaline 46 - 116 U/L Normal No Sep 13 phosphata informati 2017 se on in 11:04 AM [Enzymati source c data activity/ volume] in Serum or Plasma Bilirubin 0.2 - 1.0 mg/dL Normal No Sep 13 .total informati 2017 [Mass/vol on in 11:04 AM ume] in source Serum or data Plasma Urea 7 - 18 mg/dL High No Sep 13 nitrogen informati 2017 [Mass/vol on in 11:04 AM ume] in source Serum or data Plasma Calcium 8.5 - mg/dL Normal No Sep 13 [Mass/vol 10.1 informati 2017 ume] in on in 11:04 AM Serum or source Plasma data Chloride 98 - 107 mmoL/L Normal No Sep 13 [Moles/vo informati 2017 lume] in on in 11:04 AM Serum or source Plasma data Carbon 21.0 - mmoL/L Normal No Sep 13 dioxide, 32.0 informati 2017 total on in 11:04 AM [Moles/vo source lume] in data Serum or Plasma Creatinin 0.55 - mg/dL High No Sep 13 e 1.02 informati 2017 [Mass/vol on in 11:04 AM ume] in source Serum or data Plasma Estimated 59- ML/MIN Low REFERENCE Sep 13 RANGE: 2017 glomerula >60 11:04 AM r ML/MIN/1. filtratio 73 SQUARE n rate METERSIf (GF this patient is -A merican, then multiply theresult by 1.210. Globulin 1.3 - 3.2 gm/dL High No Sep 13 [Mass/vol informati 2017 ume] in on in 11:04 AM Serum source data Glucose 74 - 106 mg/dL Normal No Sep 13 [Mass/vol informati 2017 ume] in on in 11:04 AM Serum or source Plasma data Potassium 3.5 - 5.1 mmoL/L Normal No Sep 13 inform2016 [Moles/vo on in 11:04 AM lume] in source Serum or data Plasma Sodium 136 - 145 mmoL/L Normal No Sep 13 [Moles/vo informati 2017 lume] in on in 11:04 AM Serum or source Plasma data Aspartate 15 - 37 U/L Low No Sep 13 inform2016 aminotran on in 11:04 AM sferase source [Enzymati data c activity/ volume] in Serum or Plasma Alanine 12 - 78 U/L Normal No Sep 13 aminotran inform2016 sferase on in 11:04 AM [Enzymati source c data activity/ volume] in Serum or Plasma Protein 6.4 - 8.2 gm/dL Normal No Sep 13 [Mass/vol informati 2016 ume] in on in 11:04 AM Serum or source Plasma data Thyroxine (T4) free [Mass/volume] in Serum or Plasma Observa Value Referen Units Interpr Notes Date tion ce etation Range Thyroxine 0.76 - ng/dL Normal No Sep 13 (T4) 1.46 inform2016 free on in 11:04 AM [Mass/vol source ume] in data Serum or Plasma Lipid 1996 panel in Serum or Plasma Observa Value Referen Units Interpr Notes Date tion ce etation Range Cholester < 200 mg/dL No No Sep 13 ol informati informati 2016 [Moles/vo on in on in 11:04 AM lume] in source source Unspecifi data data ed specimen Cholester 40 - 60 MG/DL High No Sep 13 ol in HDL informati 2017 on in 11:04 AM [Mass/vol source ume] in data Serum or Plasma Cholester 0 - 130 mg/dL Normal No Sep 13 ol in LDL informati 2017 on in 11:04 AM [Mass/vol source ume] in data Serum or Plasma by jem on Triglycer 30 - 200 mg/dL Normal No Sep 13 [place] informati 2017 [Moles/vo on in 11:04 AM lume] in source Serum or data Plasma Cholester 0 - 40 No Normal No Sep 13 ol in inform 2017 VLDL on in on in 11:04 AM [Mass/vol source source ume] in data data Serum or Plasma Thyrotropin [Units/volume] in Serum or Plasma Observa Value Referen Units Interpr Notes Date tion ce etation Range Thyrotrop 0.358 - uIU/ml No No Sep 13 in 3.740 informati inform2016 [Units/vo on in on in 11:04 AM lume] in source source Serum or data data Plasma Hemoglobin A1c in Blood Observa Value Referen Units Interpr Notes Date tion ce etation Range Hemoglo 5.5 0.0 - % Normal < 6% Dec 01 bin A1c 7.0 NON-AUDREY 2017 in BETIC 11:04 Blood LEVEL< AM 7% CONTROL LED DIABETI C LEVEL> 8% POORLY CONTROL LED DIABETI C LEVEL CBC W Auto Differential panel in Blood Observa Value Referen Units Interpr Notes Date tion ce etation Range Basophils 0 - 0.2 K/MM3 Normal No Sep 13 2016 [#/volume on in 11:04 AM ] in source Blood by data Automated count Basophils 0.1 - 2.0 % Normal No Sep 13 /100 2016 leukocyte on in 11:04 AM s in source Blood by data Automated count Eosinophi 0.0 - 0.4 K/mm3 Normal No Sep 13 ls 2016 [#/volume on in 11:04 AM ] in source Blood by data Automated count Eosinophi 0.1 - % Normal No Sep 13 ls/100 12.0 2016 leukocyte on in 11:04 AM s in source Blood by data Automated count Granulocy 1.8 - 7.8 K/mm3 Normal No Sep 13 jone inform2016 [#/volume on in 11:04 AM ] in source Blood by data Automated count Granulocy 37.0 - % Normal No Sep 13 jone/100 80.0 2016 leukocyte on in 11:04 AM s in source Blood by data Automated count Hematocri 37.0 - % Normal No Sep 13 t [Volume 47.0 inform2016 on in 11:04 AM Fraction] source of Blood data Hemoglobi 12.2 - g/dL Normal No Sep 13 n 16.2 2016 [Mass/vol on in 11:04 AM ume] in source Blood data Lymphocyt 0.7 - 4.5 K/mm3 Normal No Sep 13 es inform2016 [#/volume on in 11:04 AM ] in source Unspecifi data ed specimen by Automated count Lymphocyt 10 - 50.0 % Normal No Sep 13 es inform2016 [#/volume on in 11:04 AM ] in source Unspecifi data ed specimen by Automated count Erythrocy 27 - 31.2 pg Normal No Sep 13 te mean inform2016 corpuscul on in 11:04 AM ar source hemoglobi data n [Entitic mass] Erythrocy 31.8 - g/dl Low No Sep 13 te mean 35.4 inform2016 corpuscul on in 11:04 AM ar source hemoglobi data n concentra tion [Mass/vol ume] by Automated count Erythrocy 82.2 - fl Normal No Sep 13 te mean 97.8 inform2016 corpuscul on in 11:04 AM ar volume source [Entitic data volume] by Automated count Monocytes 0.1 - 1.0 K/mm3 Normal No Sep 13 inform2016 [#/volume on in 11:04 AM ] in source Blood by data Automated count Monocytes 1.7 - 9.3 % Normal No Sep 13 /100 2016 leukocyte on in 11:04 AM s in source Blood by data Automated count Platelet 7.4 - fl Normal No Sep 13 mean 10.4 inform2016 volume on in 11:04 AM [Entitic source volume] data in Blood by Automated count Platelets 142 - 424 K/mm3 Normal No Sep 13 inform2016 [#/volume on in 11:04 AM ] in source Blood data Erythrocy 4.2 - 5.4 M/mm3 Normal No Sep 13 jone inform2016 [#/volume on in 11:04 AM ] in source Amniotic data fluid Erythrocy 11.5 - % Normal No Sep 13 te 17.5 inform2016 distribut on in 11:04 AM ion width source [Entitic data volume] by Automated count Leukocyte 4.8 - K/MM3 Normal No Sep 13 s 10.8 inform2016 [#/volume on in 11:04 AM ] in source Blood data Parathyrin.intact [Mass/volume] in Serum or Plasma Observa Value Referen Units Interpr Notes Date tion ce etation Range Parathyri 15 - 65 pg/mL No Performed August 12 n.intact informati at: CB 2017 [Mass/vol on in - [facility] 12:01 PM ume] in source Serum or data [address] [address] Plasma 0 [place], [place] [id number] Telecommunications Switch Technician: Kaleb Stoner PhD, Phone: [phone] Renal function 2000 panel in Serum or Plasma Observa Value Referen Units Interpr Notes Date tion ce etation Range Albumin 3.4 - 5.0 gm/dL Normal No August 12 [Mass/vol informati 2016 ume] in on in 12: PM Serum or source Plasma data Urea 7 - 18 mg/dL High No August 12 nitrogen informati 2016 [Mass/vol on in 12: PM ume] in source Serum or data Plasma Calcium 8.5 - mg/dL Normal No August 12 [Mass/vol 10.1 informati 2016 ume] in on in 12: PM Serum or source Plasma data Chloride 98 - 107 mmoL/L Normal No August 12 [Moles/vo informati 2016 lume] in on in 12: PM Serum or source Plasma data Carbon 21.0 - mmoL/L Normal No August 12 dioxide, 32.0 informati 2016 total on in 12:01 PM [Moles/vo source lume] in data Serum or Plasma Creatinin 0.55 - mg/dL High No August 12 e 1.02 informati 2016 [Mass/vol on in 12:01 PM ume] in source Serum or data Plasma Estimated 59- ML/MIN Low REFERENCE August 12 RANGE: 2017 glomerula >60 12: PM r ML/MIN/1. filtratio 73 SQUARE n rate METERSIf (GF this patient is -A merican, then multiply theresult by 1.210. Glucose 74 - 106 mg/dL Normal No August 12 [Mass/vol informati 2016 ume] in on in 12:01 PM Serum or source Plasma data Potassium 3.5 - 5.1 mmoL/L Normal No August 12 informati 2016 [Moles/vo on in 12:01 PM lume] in source Serum or data Plasma Sodium 136 - 145 mmoL/L Normal No August 12 [Moles/vo informati 2016 lume] in on in 12:01 PM Serum or source Plasma data Phosphate 2.4 - 4.9 mg/dL Normal No August 12 informati 2016 [Moles/vo on in 12:01 PM lume] in source Unspecifi data ed specimen 25-Hydroxyvitamin D [Mass/volume] in Serum or Plasma Observa Value Referen Units Interpr Notes Date tion ce etation Range 25-Hydrox 30.0 - ng/mL Low Vitamin D August 12 yvitamin 100.0 2017 D deficienc 12:01 PM [Mass/vol y has ume] in been Serum or defined Plasma by the [place] [facility] e and an Endocrine Society practice guideline as alevel of serum 25-OH vitamin D less than 20 ng/mL (1,2).The Endocrine Society went on to further define vitamin Dinsuffic iency as a level between 21 and 29 ng/mL (2).1. IOM (Institut e of Medicine) . 2010. Dietary reference intakes for calcium and D. [place]: [employer] al [employer].2. Nighat MF, Ernie NC, Nidia Lu FOX, et al.Evalua tion, treatment , and preventio n of vitamin Ddeficien cy: an Endocrine Society clinical practiceg uideline. JCEM. 2010; 96(7):191 1-30.Perf ormed at: - [facility] [address] [address] [address] [place], [place] [id number] Telecommunications Switch Technician: Kaleb Stoner PhD, Phone: [phone] Creatinine [Mass/volume] in Urine Observa Value Referen Units Interpr Notes Date ti ce etation Range Creatinin 20 - 320 mg/dL Normal No August 12 e informati 2016 [Mass/vol on in 12:01 PM ume] in source Urine data Protein [Presence] in Urine Observa Value Referen Units Interpr Notes Date tion ce etation Range Protein 13.0 0.0 - mg/dL High No August 12 11.9 informa 2016 [Presen tion in 12:01 ce] in source PM Urine data Urinalysis dipstick W Reflex Microscopic panel in Urine Observa Value Referen Units Interpr Notes Date ti ce etation Range Appeara CLEAR CLEAR No No No August 12 nce of informa informa informa 2017 Urine tion in tion in tion in 12:01 source source source PM data data data Bacteri 1+ O No No No August 12 a informa informa informa 2016 [Presen tion in tion in tion in 12:01 ce] in source source source PM Urine data data data sedimen t by Light microsc opy Bilirub NEGATIV NEG No No No August 12 in E informa informa informa 2016 [Presen tion in tion in tion in 12:01 ce] in source source source PM Urine data data data by Test strip Erythro 2+ NEG No Abnorma No August 12 cytes informa l informa 2016 [Presen tion in tion in 12:01 ce] in source source PM Urine data data Color YELLOW YELLOW No No No August 12 of informa informa informa 2017 Urine tion in tion in tion in 12:01 source source source PM data data data Glucose NEG No No No August 12 [Mass/vol informati informati informati 2016 ume] in on in on in on in 12:01 PM Urine by source source source Test data data data strip Ketones NEGATIV NEG mg/dL No No August 12 E informa informa 2016 [Presen tion in tion in 12:01 ce] in source source PM Urine data data by Automat ed test strip Mucus NEGATIV NEG No No No August 12 [Presen E informa informa informa 2016 ce] in tion in tion in tion in 12:01 Urine source source source PM sedimen data data data t by Light microsc opy Mucus OCC OCC No No No August 12 [Presen informa informa informa 2016 ce] in tion in tion in tion in 12:01 Urine source source source PM sedimen data data data t by Light microsc opy Nitrite NEGATIV NEG No No No August 12 E informa informa informa 2016 [Presen tion in tion in tion in 12:01 ce] in source source source PM Urine data data data by Test strip pH of 5.0 - 8.5 No Normal No August 12 Urine informati informati 2017 on in on in 12:01 PM source source data data Protein NEG mg/dL No No August 12 [Mass/vol informati informati 2016 ume] in on in on in 12:01 PM Urine by source source Automated data data test strip Erythro OCC 0 rbc/hpf No No August 12 cytes informa informa 2017 [Presen tion in tion in 12:01 ce] in source source PM Urine data data sedimen t by Light microsc opy Specific 1.005 - No Normal No August 12 gravity 1.030 informati informati 2016 of Urine on in on in 12:01 PM source source data data Epithel 5-10 0 - 5 #/hpf No No August 12 ial informa informa 2017 cells.s tion in tion in 12:01 quamous source source PM data data [Presen ce] in Urine sedimen t by Microsc opy high power field Urobili 0.2 NEG E.U./dL No No August 12 nogen informa informa 2016 [Presen tion in tion in 12:01 ce] in source source PM Urine data data by Test strip Leukocyte O wbc/hpf No No August 12 s informati informati 2016 [#/volume on in on in 12: PM ] in source source Urine data data Urinalysis dipstick W Reflex Microscopic panel in Urine Observa Value Referen Units Interpr Notes Date tion ce etation Range Appeara CLEAR CLEAR No No No August 12 nce of informa informa informa 2017 Urine tion in tion in tion in 12:01 source source source PM data data data Bilirub NEGATIV NEG No No No August 12 in E informa informa informa 2016 [Presen tion in tion in tion in 12:01 ce] in source source source PM Urine data data data by Test strip Erythro 2+ NEG No Abnorma No August 12 cytes informa l informa 2016 [Presen tion in tion in 12:01 ce] in source source PM Urine data data Color YELLOW YELLOW No No No August 12 of informa informa informa 2017 Urine tion in tion in tion in 12:01 source source source PM data data data Glucose NEG No No No August 12 [Mass/vol informati informati informati 2017 ume] in on in on in on in 12: PM Urine by source source source Test data data data strip Ketones NEGATIV NEG mg/dL No No August 12 E informa informa 2016 [Presen tion in tion in 12:01 ce] in source source PM Urine data data by Automat ed test strip Mucus NEGATIV NEG No No No August 12 [Presen E informa informa informa 2016 ce] in tion in tion in tion in 12:01 Urine source source source PM sedimen data data data t by Light microsc opy Nitrite NEGATIV NEG No No No August 12 E informa informa informa 2016 [Presen tion in tion in tion in 12:01 ce] in source source source PM Urine data data data by Test strip pH of 5.0 - 8.5 No Normal No August 12 Urine informati informati 2016 on in on in 12: PM source source data data Protein NEG mg/dL No No August 12 [Mass/vol informati informati 2016 ume] in on in on in 12: PM Urine by source source Automated data data test strip Specific 1.005 - No Normal No August 12 gravity 1.030 informati inform2016 of Urine on in on in 12:01 PM source source data data Urobili 0.2 NEG E.U./dL No No August 12 nogen informa informa 2016 [Presen tion in tion in 12:01 ce] in source source PM Urine data data by Test strip CBC W Auto Differential panel in Blood Observa Value Referen Units Interpr Notes Date tion ce etation Range Basophils 0 - 0.2 K/MM3 Normal No August 122016 [#/volume on in 12: PM ] in source Blood by data Automated count Basophils 0.1 - 2.0 % Normal No August 12 /100 2016 leukocyte on in 12:01 PM s in source Blood by data Automated count Eosinophi 0.0 - 0.4 K/mm3 Normal No August 12 ls ati 2016 [#/volume on in 12: PM ] in source Blood by data Automated count Eosinophi 0.1 - % Normal No August 12 ls/100 12.0 2016 leukocyte on in 12:01 PM s in source Blood by data Automated count Granulocy 1.8 - 7.8 K/mm3 Normal No August 12 jone ati 2016 [#/volume on in 12: PM ] in source Blood by data Automated count Granulocy 37.0 - % Normal No August 12 jone/100 80.0 ati 2016 leukocyte on in 12: PM s in source Blood by data Automated count Hematocri 37.0 - % Normal No August 12 t [Volume 47.0 informati 2017 on in 12:01 PM Fraction] source of Blood data Hemoglobi 12.2 - g/dL Low No August 12 n 16.2 informati 2016 [Mass/vol on in 12:01 PM ume] in source Blood data Lymphocyt 0.7 - 4.5 K/mm3 Normal No August 12 es informati 2016 [#/volume on in 12:01 PM ] in source Unspecifi data ed specimen by Automated count Lymphocyt 10 - 50.0 % Normal No August 12 es informati 2016 [#/volume on in 12:01 PM ] in source Unspecifi data ed specimen by Automated count Erythrocy 27 - 31.2 pg Normal No August 12 te mean inform2016 corpuscul on in 12:01 PM ar source hemoglobi data n [Entitic mass] Erythrocy 31.8 - g/dl Low No August 12 te mean 35.4 inform2016 corpuscul on in 12:01 PM ar source hemoglobi data n concentra tion [Mass/vol ume] by Automated count Erythrocy 82.2 - fl Normal August 12 te mean 97.8 inform2016 corpuscul on in 12:01 PM ar volume source [Entitic data volume] by Automated count Monocytes 0.1 - 1.0 K/mm3 Normal No August 12 informati 2016 [#/volume on in 12:01 PM ] in source Blood by data Automated count Monocytes 1.7 - 9.3 % Normal No August 12 /100 2016 leukocyte on in 12:01 PM s in source Blood by data Automated count Platelet 7.4 - fl Low August 12 mean 10.4 informati 2016 volume on in 12:01 PM [Entitic source volume] data in Blood by Automated count Platelets 142 - 424 K/mm3 Normal No August 12 informati 2016 [#/volume on in 12:01 PM ] in source Blood data Erythrocy 4.2 - 5.4 M/mm3 Normal No August 12 jone informati 2016 [#/volume on in 12:01 PM ] in source Amniotic data fluid Erythrocy 11.5 - % Normal No August 12 te 17.5 informati 2016 distribut on in 12:01 PM ion width source [Entitic data volume] by Automated count Leukocyte 4.8 - K/MM3 Normal August 12 s 10.8 informati 2016 [#/volume on in 12:01 PM ] in source Blood data Streptococcus pyogenes Ag [Presence] in Unspecified specimen Observa Value Referen Units Interpr Notes Date tion ce etation Range Strepto NEGATIV No No No No August 02 coccus E informa informa informa informa 2017 pyogene tion in tion in tion in tion in 1:00 PM s Ag source source source source [Presen data data data data ce] in Unspeci fied specime n
--- OUTSIDE RECORDS SUMMARY | 2017-01-24 11:28 | External Medical Summary Rpt | CCD ---
Author Author , EMY QUEVEDO Address Unknown Phone [email or web address] Immunization Name Date Rout CVX Reac Dose Comm Prov Is Faci e tion ent ider Refu lity Give sed n PCV1 10-1 Intr 133 0.5 Hist GSHA No GSHA 3 1-20 amus mL oric NE NE 17 cula al r Info rmat ion - Sour ce Unsp ecif ied Infl 10-1 Intr 150 0.5 Hist GSHA No GSHA uenz 1-20 amus mL oric NE NE a 17 cula al Quad r Info Inj rmat ion - Sour ce Unsp ecif ied
--- OUTSIDE RECORDS SUMMARY | 2017-01-24 11:28 | External Medical Summary Rpt ---
[...] - 5.4 M/mm3 Normal No Sep 13 joen inform2016 [#/volume on in 11:04 AM ] [...] PM ume] in source Serum or data [address] [address] Plasma 0 [place], [place] [id number] Intensive Care Nurse: Kaleb Stoner PhD, Phone: [phone] Renal function 2000 panel in Serum [...] been Serum or defined Plasma by the [place] [facility] e and an Endocrine Society practice guideline as alevel of serum 25-OH vitamin D less than 20 ng/mL (1,2).The Endocrine Society went on to further define vitamin Dinsuffic iency as a level between 21 and 29 ng/mL (2).1. IOM (Institut e of Medicine) . 2010. Dietary reference intakes for calcium and D. [place]: [employer].2. Nighat MF, Ernie NC, Nidia Lu FOX, et al.Evalua tion, treatment , and preventio n of vitamin Ddeficien cy: an Endocrine Society clinical practiceg uideline. JCEM. 2010; 96(7):191 1-30.Perf ormed at: - [facility] [address] [address] [place], [place] [id number] Intensive Care Nurse: Kaleb Stoner PhD, Phone: [phone] Creatinine [Mass/volume] in Urine Observa Value [...]
--- OUTSIDE RECORDS SUMMARY | 2017-01-24 11:28 | External Medical Summary Rpt | CCD ---
Author Author , EMY QUEVEDO Address Unknown Phone [email or web address] Immunization Name Date Rout CVX Reac Dose [...]
--- NOTE | 2017-01-24 11:53 | Urgent Treatment Center Report ---
History of Present Issue Date/Time Seen by Provider 01/24/17 1152 Visit Reason Pt arrived:Wheelchair Presenting Problem:PT C/O OF LEFT FOOT PAIN AND SWOLLEN. NO KNOWN INJURY. Location if Accident: Onset of symptoms date/time:01/23/1708/05/1199 or onset unknown for: Have you (or family members/close friends) recently traveled outside the [place]? N If Yes, where/when: Have you had exposure to infectious disease within the past month? TB? Other? Specify: Here w/ spouse c/o left foot pain since yesterday but worse this morning without known injury. tylenol helps "somewhat", unknown kidney problem and can't take NSAIDs, saw Dr. Ortiz last month for wart removal same foot near great toe. pain primarily on "other side" (medial side). Pain worse when weight bearing and therefore, difficulty ambulating today. Denies N/T Source patient, family (spouse) Exam Limitations no limitations ALLERGIES Coded Allergies: No Known Allergies (07/29/15) Home Medications Reported Medications PRAVASTATIN SODIUM (Pravastatin Sodium) 40 MG PO DAILY ASPIRIN (Aspirin) 81 MG PO DAILY Amlodipine Besylate (Amlodipine) 5 MG PO DAILY #30 LISINOPRIL/HYDROCHLOROTHIAZIDE (Lisinopril-Hctz 20-25 MG Tab) 1 TAB PO BID #60 Nitroglycerin Amiodarone Hcl (Amiodarone 200MG) 100 MG PO DAILY #60 Gabapentin (Gabapentin 100MG) 100 MG PO BID History Medical History General CAD? No Angina: Yes [place]: Yes Hypertension? Yes Hyperlipidemia? Yes CHF? No DVT? No PE? No COPD? No Asthma? No Anemia? No GERD? No Gastric ulcers? No GI Bleed? No Hernia? No Thyroid Problems? No Hypothyroidism? No CVA? No Seizures? No Diabetes? No Renal Insuffiency? No UTI? No Stones? No BPH? No GB Disease: No Nephritic Syndrome? No Asplenia? No Hepatitis? No Sickle Cell Disease? No Arthritis? No Migraines? No Cataracts? No Glaucoma? No MRSA? No HIV? No TB? No Anxiety? No Depression? No Cancer? No More? No Immunization HX DT/Tetanus UNKNOWN Flu UNKNOWN Pneumonia REFUSES Surgical Hx Previous Surgery?Y Coronary Artery Bypass X 2 Family History Family HX Diabetes No CAD No Hypertension Yes Hyperlipidemia Yes Cancer Yes TB No Social History Smoking Hx Smoker: Never Smoker Tobacco: No Packs/day N/A Alcohol Alcohol: No Review of Systems All Other Systems Reviewed and Negative (as appropriate for CC) Musculoskeletal see HPI, denies other (ankle pain) Skin see HPI, denies change in color, denies lesions, denies lumps Psychiatric/Neurological see HPI Physical Exam Vital Signs Vital Signs Date Time Temp Pulse Resp B/P Pulse O2 O2 Flow FiO2 Ox Delivery Rate 01/24 1326 98.0 60 20 149/90 99 01/24 1143 98.0 60 20 149/90 99 General Appearance no apparent distress, seated in W/C Respiratory Status No: respiratory distress. Cardiovascular no peripheral edema Peripheral Pulses Pulses normal Yes (PT/DP) Back gait abnormality Extremities normal inspection (bilateral feet), full ROM left ankle w/ metatarsal pain worse during plantar flexion and dorsiflexion; TTP over 1st and 2nd metatarsals Strength 5 Lower Ext (L), 5 Lower Ext (R) Neurologic alert, no motor/sensory deficits Skin intact, normal color, warm/dry Medical Decision Making LABS/Meds/Orders Pt receiving controlled substance in ED? No Results/Orders Orders Procedure Date/time Status STABILIZE JOINT 01/24 1322 Active XRAY/CT/US XRAY/CT/US XRAY foot (left) XR interpretation by reviewed by me, discussed w/radiologist (Dr. Abarca, radiologist) Xray Results negative xray Departure Departure Time of Disposition 1313 Disposition DC Home or Self Care(routine) Clinical Impression Primary Impression: Metatarsalgia, left foot Condition STABLE Referrals KAIDEN ORTIZ DPM Stop by office today on way out and schedule follow up appointment Patient Instructions DI for Metatarsalgia Additional Instructions * weight bearing as tolerated but if painful, do not bear weight and use crutches * Rest * ice 15-20 mins 3-4 times a day * Efren wrap for support and swelling unless in shower. Be sure not too tight but not too loose either. If not improving be sure to follow up as further treatment may be necessary. * Elevate as discussed as much as possible to help reduce swelling and therefore , pain * Avoid ibuprofen because of your kidneys, use tylenol as needed instead. * Follow up with Dr. Ortiz Discharge Counseling Counseled pt/family regarding diagnosis, test results, medications/RX, home care, follow up needs at 0620
--- NOTE | 2017-01-24 13:18 | RADIOLOGY REPORT PS360 ---
FOOT-LT-3 VIEWS HISTORY: sudden onset pain yesterday, no known injury, r/o stressfx ORDERING PHYSICIAN: RAHUL SHEPHERD APRN PATIENT AGE: 51 years COMPARISON: None FINDINGS: No fracture or dislocation. No lytic or blastic change. There is normal mineralization.. The joint spaces are well-preserved. No significant degenerative/arthritic changes. No erosive changes evident. IMPRESSION: Negative left foot, no acute finding
[2017-01-24 13:26] VITALS: BP 149/90
== END ==
LOC: UTC 11:13
DX: M77.42 Metatarsalgia, left foot (principal); I10 Essential (primary) hypertension; E78.5 Hyperlipidemia, unspecified; Z79.82 Long term (current) use of aspirin

== ENCOUNTER → 2017-02-17 | Outpatient (CLI) | payer MEDICAID ==
[~2017-02-17] MED LIST changes: +VOLTAREN100 GM TP
[2017-02-17 12:11] LABS: HEMOGLOBIN 12.6 g/dL (12.2-16.2); LYMPH # 2.1 K/mm3 (0.7-4.5); LYMPH % 21.2 % (10-50.0)
[2017-02-17 12:21] LABS: URINE BILIRUBIN - DIPSTICK NEGATIVE (NEG); URINE BLOOD 1+ (NEG)
[2017-02-17 13:34] LABS: URINE SQUAMOUS CELLS OCC #/hpf (0-5)
[2017-02-17 14:54] LABS: BUN 39 mg/dL (7-18)
[2017-02-17 15:32] LABS: GFR (ESTIMATED) 39 ML/MIN (59-)
[2017-02-24 14:44] LABS: STOOL OCCULT BLOOD NEGATIVE (NEG)
== END ==
LOC: LAB 11:32
PROVIDERS: Internal Medicine Nephrology; Nurse Practitioner Family
DX: N18.3 Chronic kidney disease, stage 3 (moderate) (principal)
CPT/HCPCS: G0328